=== PATIENT | female | born 1960 | race Two or more races ===

== ENCOUNTER 2021-02-19 08:34 | Emergency (ER) | payer BC, OTHER ==
[~2021-02-19] VITALS: Ht 154.9 cm; Wt 40.8 kg
[2021-02-19 09:10] VITALS: BP 187/85
[2021-02-19] MEDS ORDERED: CEPH500T PO (09:47)
== END 2021-02-19 09:54 | disposition home or self-care (01) ==
LOC: ER 08:34
DX: S01.01XA Laceration without foreign body of scalp, initial encounter (principal); E11.9 Type 2 diabetes mellitus without complications; F12.10 Cannabis abuse, uncomplicated; W19.XXXA Unspecified fall, initial encounter; Y93.89 Activity, other specified; Y92.89 Other specified places as the place of occurrence of the external cause; Y99.8 Other external cause status
CPT/HCPCS: 12002; 70450; 93005

== ENCOUNTER 2021-03-06 07:21 | Emergency (ER) | payer BC ==
[~2021-03-06] VITALS: Ht 154.9 cm; Wt 40.8 kg
[~2021-03-06 07:21] MED LIST: CEPH500T PO
[2021-03-06 07:59] VITALS: BP 137/79
== END 2021-03-06 08:12 | disposition home or self-care (01) ==
LOC: ER 07:21
DX: S01.01XD Laceration without foreign body of scalp, subsequent encounter (principal); E11.9 Type 2 diabetes mellitus without complications; F12.10 Cannabis abuse, uncomplicated; X58.XXXD Exposure to other specified factors, subsequent encounter

== ENCOUNTER 2021-04-21 15:01 | Emergency (ER) | payer BC ==
[~2021-04-21] VITALS: Ht 154.9 cm; Wt 45.8 kg
[2021-04-21 15:41] LABS: Basophils # (auto) 0.1 10 ^3/uL (0-0.2); Eosinophils # (auto) 0.1 10 ^3/uL (0-0.8); Hematocrit 32.6 % (36.0-46.0); Hemoglobin 10.6 g/dL (12.2-16.2); Mean Corpuscular Hemoglobin 30.8 pg (28.0-32.0); Mean Corpuscular Hgb Conc. 32.5 g/dL (32.0-36.0); Mean Corpuscular Volume 94.7 fL (80.0-100.0); Monocytes # (auto) 0.8 10 ^3/uL (0-1.3); Red Blood Cells 3.44 10^6/uL (4.0-5.20)
[2021-04-21 15:43] LABS: Basophils % (auto) 0.8 % (0.0-2.0); Eosinophils % (auto) 1.2 % (0.0-7.0); Lymphocytes # (auto) 2.6 10 ^3/uL (0.4-5.4); Lymphocytes % (auto) 20.6 % (10.0-50.0); Monocytes % (auto) 6.8 % (0.0-12.0); Neutrophils # (auto) 8.8 10 ^3/uL (1.6-8.6); Neutrophils % (auto) 70.6 % (37.0-80.0); Nucleated Red Blood Cells % 0.1 %; Red Cell Distribution Width 15.6 % (11.8-14.3); White Blood Cell 12.4 10^3/uL (4.4-10.8)
[2021-04-21 15:59] LABS: Albumin 2.6 g/dL (3.4-5.0); BUN/Creatinine Ratio 21.4; Calcium 8.6 mg/dL (8.5-10.1); Potassium 3.8 mmol/L (3.5-5.1)
[2021-04-21 16:02] LABS: Bilirubin, Total 0.2 mg/dL (0.2-1.0); Total Protein 7.6 g/dL (6.4-8.2)
[2021-04-21] MEDS ORDERED: CEPH-509 PO (17:10)
[2021-04-21] MEDS ORDERED: CLIN-203 PO (17:10)
[2021-04-21] MEDS ORDERED: InsuLIN REG 1unit/0.01ml Soln (100units/ml) IV ONE (17:15)
[2021-04-21] MEDS ORDERED: SODIUM CHLORIDE 0.9% 1,000 ML IV ONE (17:15)
[2021-04-21 19:12] VITALS: BP 138/95
== END 2021-04-21 19:27 | disposition home or self-care (01) ==
LOC: ER 15:01
DX: L03.115 Cellulitis of right lower limb (principal); E11.65 Type 2 diabetes mellitus with hyperglycemia; E46 Unspecified protein-calorie malnutrition
CPT/HCPCS: 36415; 80053; 82962; 85025; 93970; 96374; 99284; J1815

== ENCOUNTER 2021-06-20 16:33 | Emergency (ER) | payer BC ==
[~2021-06-20] VITALS: Ht 154.9 cm; Wt 35.8 kg
[~2021-06-20 16:33] MED LIST changes: +CEPH-509 PO; +CLIN-203 PO
[2021-06-20 16:37] VITALS: BP 171/95
[2021-06-20 18:18] LABS: Basophils # (auto) 0.2 10 ^3/uL (0-0.2); Eosinophils # (auto) 0 10 ^3/uL (0-0.8); Lymphocytes # (auto) 2.5 10 ^3/uL (0.4-5.4); Mean Corpuscular Volume 87.5 fL (80.0-100.0)
[2021-06-20 18:20] LABS: Basophils % (auto) 0.9 % (0.0-2.0); Eosinophils % (auto) 0.1 % (0.0-7.0); Hematocrit 44.8 % (36.0-46.0); Hemoglobin 15.3 g/dL (12.2-16.2); Lymphocytes % (auto) 9.9 % (10.0-50.0); Mean Corpuscular Hemoglobin 29.9 pg (28.0-32.0); Mean Corpuscular Hgb Conc. 34.2 g/dL (32.0-36.0); Monocytes # (auto) 0.7 10 ^3/uL (0-1.3); Monocytes % (auto) 2.8 % (0.0-12.0); Neutrophils % (auto) 86.3 % (37.0-80.0); Nucleated Red Blood Cells % 0.2 %; Red Blood Cells 5.12 10^6/uL (4.0-5.20); Red Cell Distribution Width 14.3 % (11.8-14.3); White Blood Cell 25.5 10^3/uL (4.4-10.8)
[2021-06-20 18:40] LABS: Albumin 2.9 g/dL (3.4-5.0); BUN/Creatinine Ratio 37.3; Calcium 9.8 mg/dL (8.5-10.1); Potassium 3.9 mmol/L (3.5-5.1)
[2021-06-20 18:43] LABS: Bilirubin, Total 0.2 mg/dL (0.2-1.0); Total Protein 8.4 g/dL (6.4-8.2)
== END 2021-06-20 18:57 | disposition left against medical advice (07) ==
LOC: ER 16:33
DX: R10.12 Left upper quadrant pain (principal); D72.829 Elevated white blood cell count, unspecified; E11.9 Type 2 diabetes mellitus without complications; E03.9 Hypothyroidism, unspecified; Z90.89 Acquired absence of other organs; Z79.2 Long term (current) use of antibiotics; Z79.899 Other long term (current) drug therapy
CPT/HCPCS: 36415; 74176; 80053; 85025; 93005

== ENCOUNTER 2021-07-04 10:16 | Inpatient (IN) | payer BC ==
[2021-07-04] VITALS (7 sets, daily range): BP systolic 135–181; BP diastolic 69–90
[~2021-07-04] VITALS: Ht 154.9 cm; Wt 47.1 kg
[2021-07-04] MEDS ORDERED: ONDANSETRON HCL 4 MG/2 ML VIAL IV ONE (11:00)
[2021-07-04] MEDS ORDERED: SODIUM CHLORIDE 0.9% 1,000 ML IVB ONE (11:00)
[2021-07-04] MEDS ORDERED: InsuLIN REG 1unit/0.01ml Soln (100units/ml) IV ONE (11:00)
[2021-07-04] MEDS ORDERED: INSULIN LANTUS (GLARGINE) 1 /0.01ml (100units/ml) SC ONE (11:15)
[2021-07-04] MEDS ORDERED: InsuLIN R (HUMAN) 100 UNITS in SODIUM CHL 0.9% 99 ML IV SCH (11:15)
[2021-07-04] MEDS ORDERED: DEXTROSE (50%) 50ML SYRG IV PRN (11:15)
[2021-07-04 11:29] LABS: Hematocrit 42.6 % (36.0-46.0); Hemoglobin 13.3 g/dL (12.2-16.2); Mean Corpuscular Hemoglobin 29.3 pg (28.0-32.0); Mean Corpuscular Hgb Conc. 31.3 g/dL (32.0-36.0); Mean Corpuscular Volume 93.4 fL (80.0-100.0); Red Blood Cells 4.56 10^6/uL (4.0-5.20); Red Cell Distribution Width 15.9 % (11.8-14.3)
[2021-07-04 11:44] LABS: Basophils % (manual) 0 (0.0-2.0); Blast Cells 0; Eosinophils % (manual) 0 (0-7); Metamyelocytes % 0; Myelocytes % 0; Promyelocytes % 0; Reactive Lymphocytes 0; White Blood Cell 35.9 10^3/uL (4.4-10.8)
[2021-07-04 11:50] LABS: Band Neutrophils % (manual) 77; Lymphocytes % (manual) 3 (10.0-50.0); Monocytes % (manual) 6 (0-12)
[2021-07-04 11:52] LABS: Albumin 2.3 g/dL (3.4-5.0); Anion Gap 33 (5-15); Blood Alcohol < 3.0 mg/dL (0-5); Blood Urea Nitrogen 54 mg/dL (7-18); Calcium 9.4 mg/dL (8.5-10.1); Carbon Dioxide 11 mmol/L (21-32); Chloride 87 mmol/L (98-107); Magnesium 2.9 mg/dL (1.6-2.6); Potassium 4.1 mmol/L (3.5-5.1); Sodium 131 mmol/L (136-145)
[2021-07-04 11:55] LABS: Alanine Aminotransferase 21 U/L (13-56); Bilirubin, Total 0.8 mg/dL (0.2-1.0); GFR African American 43 mL/min; GFR Non-African American 35 mL/min
[2021-07-04 12:01] LABS: Alkaline Phosphatase 176 U/L (45-117)
[2021-07-04 12:05] LABS: Aspartate Aminotransferase 23 U/L (15-37)
[2021-07-04 12:13] LABS: Glucose 554 mg/dL (74-106)
[2021-07-04] MEDS ORDERED: cefTRIAXone 1GM/50ML D5W 50 ML IV ONE (12:15)
[2021-07-04] MEDS ORDERED: SODIUM CHLORIDE 0.9% 1,000 ML IV ONE (12:45)
[2021-07-04 13:01] LABS: Lactic Acid w/Reflex 8.7 mmol/L (0.4-2.0)
[2021-07-04] MEDS ORDERED: AZITHROMYCIN 500MG/ 250ML 250 ML IV ONE (13:15)
[2021-07-04] MEDS ORDERED: ONDANSETRON HCL 4 MG/2 ML VIAL IV PRN (13:15)
[2021-07-04] MEDS: ACCU-CHEK COMFORT CURVE STRIP VI SCH ×8 (13:28→22:33)
[2021-07-04] MEDS ORDERED: NICOTINE 7MG/24HR TOPICAL PATCH TD ONE (13:30)
[2021-07-04 17:52] LABS: Urine Bacteria NONE SEEN /hpf (None Seen); Urine Blood Negative /uL (Negative); Urine Specific Gravity 1.012 (1.001-1.035); Urine WBC 23 /hpf (0 - 5)
[2021-07-04 17:55] LABS: Alcohol, Urine < 3.0 mg/dL (0-10); Amphetamine Screen, Urine POSITIVE (NEGATIVE); Barbiturate Scree,Urine NEGATIVE (NEGATIVE); Benzodiazephine Screen, Urine NEGATIVE (NEGATIVE); Cannabinoid Screen, Urine POSITIVE (NEGATIVE); Cocaine Screen, Urine NEGATIVE (NEGATIVE); Opiate Scree,Urine NEGATIVE (NEGATIVE); Phencyclidine Screen, Urine NEGATIVE (NEGATIVE)
[2021-07-04] MEDS: hydrALAZINE HCL 20 MG/ML VL IV PRN ×2 (18:54→21:00)
[2021-07-05] VITALS (8 sets, daily range): BP systolic 122–160; BP diastolic 57–79
[2021-07-05] MEDS: ACCU-CHEK COMFORT CURVE STRIP VI SCH ×9 (00:06→21:34)
[2021-07-05 04:10] LABS: Red Blood Cells 4.52 10^6/uL (4.0-5.20)
[2021-07-05 04:14] LABS: Hematocrit 40.1 % (36.0-46.0); Hemoglobin 13.4 g/dL (12.2-16.2); Mean Corpuscular Hemoglobin 29.7 pg (28.0-32.0); Mean Corpuscular Hgb Conc. 33.4 g/dL (32.0-36.0); Mean Corpuscular Volume 88.7 fL (80.0-100.0); White Blood Cell 29.8 10^3/uL (4.4-10.8)
[2021-07-05 04:16] LABS: Albumin 1.9 g/dL (3.4-5.0); BUN/Creatinine Ratio 62.5; Calcium 8.5 mg/dL (8.5-10.1); Potassium 3.2 mmol/L (3.5-5.1)
[2021-07-05 04:19] LABS: Bilirubin, Total 0.3 mg/dL (0.2-1.0); Total Protein 6.9 g/dL (6.4-8.2)
[2021-07-05 04:28] LABS: Basophils % (manual) 0 (0.0-2.0); Blast Cells 0; Eosinophils % (manual) 0 (0-7); Metamyelocytes % 0; Promyelocytes % 0; Reactive Lymphocytes 0
[2021-07-05 05:04] LABS: Band Neutrophils % (manual) 44; Lymphocytes % (manual) 10 (10.0-50.0); Monocytes % (manual) 2 (0-12); Myelocytes % 1
[2021-07-05] MEDS: cefTRIAXone 1GM/50ML D5W 50 ML IV SCH (09:37)
[2021-07-05] MEDS ORDERED: INSULIN LANTUS (GLARGINE) 1 /0.01ml (100units/ml) SC SCH (10:00)
[2021-07-05] MEDS: AZITHROMYCIN 500MG/ 250ML 250 ML IV SCH (10:51)
[2021-07-05] MEDS ORDERED: DEXTROSE (50%) 50ML SYRG IV PRN (12:15)
[2021-07-05] MEDS: NICOTINE 7MG/24HR TOPICAL PATCH TD SCH (12:38)
[2021-07-05] MEDS ORDERED: POTASSIUM EFFERVESENT TAB 25 MEQ PO ONE (15:15)
[2021-07-05] MEDS: InsuLIN REG 1unit/0.01ml Soln (100units/ml) SC SCH ×2 (18:08→21:33)
[2021-07-06 05:00] VITALS: BP 154/86
[2021-07-06] MEDS: ACCU-CHEK COMFORT CURVE STRIP VI SCH ×4 (05:26→20:56)
[2021-07-06] MEDS: InsuLIN REG 1unit/0.01ml Soln (100units/ml) SC SCH ×4 (05:36→20:56)
[2021-07-06 05:57] LABS: Hematocrit 32.7 % (36.0-46.0); Hemoglobin 11.1 g/dL (12.2-16.2); Mean Corpuscular Hemoglobin 29.7 pg (28.0-32.0); Mean Corpuscular Volume 87.4 fL (80.0-100.0); Red Blood Cells 3.75 10^6/uL (4.0-5.20); Red Cell Distribution Width 14.8 % (11.8-14.3); White Blood Cell 25.5 10^3/uL (4.4-10.8)
[2021-07-06 06:00] LABS: Basophils % (manual) 0 (0.0-2.0); Blast Cells 0; Eosinophils % (manual) 0 (0-7); Myelocytes % 0; Promyelocytes % 0; Reactive Lymphocytes 0
[2021-07-06 06:15] LABS: Albumin 1.6 g/dL (3.4-5.0); BUN/Creatinine Ratio 44.4; Calcium 8.3 mg/dL (8.5-10.1)
[2021-07-06 06:18] LABS: Bilirubin, Total 0.3 mg/dL (0.2-1.0); Total Protein 6.2 g/dL (6.4-8.2)
[2021-07-06 06:27] LABS: Potassium 2.8 mmol/L (3.5-5.1)
[2021-07-06] MEDS ORDERED: POTASSIUM CHL 20 Meq TABLET PO ONE (06:45)
[2021-07-06 07:43] LABS: Band Neutrophils % (manual) 14; Lymphocytes % (manual) 8 (10.0-50.0); Metamyelocytes % 1; Monocytes % (manual) 2 (0-12)
[2021-07-06 09:00] VITALS: BP 156/87
[2021-07-06] MEDS: cefTRIAXone 1GM/50ML D5W 50 ML IV SCH (09:07)
[2021-07-06] MEDS: AZITHROMYCIN 500MG/ 250ML 250 ML IV SCH (11:19)
[2021-07-06] MEDS: NICOTINE 7MG/24HR TOPICAL PATCH TD SCH (11:37)
[2021-07-06 13:00] VITALS: BP 148/85
[2021-07-06 17:00] VITALS: BP 144/77
[2021-07-06 22:00] VITALS: BP 157/83
[2021-07-07 05:00] VITALS: BP 158/84
[2021-07-07] MEDS: InsuLIN REG 1unit/0.01ml Soln (100units/ml) SC SCH ×4 (06:03→23:03)
[2021-07-07] MEDS: ACCU-CHEK COMFORT CURVE STRIP VI SCH ×4 (06:03→23:02)
[2021-07-07 06:31] LABS: Potassium 3.5 mmol/L (3.5-5.1)
[2021-07-07 06:40] VITALS: BP 152/81
[2021-07-07 06:42] LABS: Albumin 1.5 g/dL (3.4-5.0); BUN/Creatinine Ratio 42.9; Bilirubin, Total 0.3 mg/dL (0.2-1.0); Calcium 8.2 mg/dL (8.5-10.1); Total Protein 6.2 g/dL (6.4-8.2)
[2021-07-07 07:19] LABS: Basophils # (auto) 0 10 ^3/uL (0-0.2); Eosinophils # (auto) 0 10 ^3/uL (0-0.8); Eosinophils % (auto) 0.1 % (0.0-7.0); Hemoglobin 11.2 g/dL (12.2-16.2); Mean Corpuscular Volume 87.6 fL (80.0-100.0); Monocytes # (auto) 0.6 10 ^3/uL (0-1.3)
[2021-07-07 07:23] LABS: Basophils % (auto) 0.2 % (0.0-2.0); Hematocrit 33.6 % (36.0-46.0); Lymphocytes # (auto) 1.2 10 ^3/uL (0.4-5.4); Lymphocytes % (auto) 6.9 % (10.0-50.0); Mean Corpuscular Hemoglobin 29.3 pg (28.0-32.0); Mean Corpuscular Hgb Conc. 33.5 g/dL (32.0-36.0); Monocytes % (auto) 3.6 % (0.0-12.0); Neutrophils # (auto) 15.7 10 ^3/uL (1.6-8.6); Neutrophils % (auto) 89.2 % (37.0-80.0); Red Blood Cells 3.83 10^6/uL (4.0-5.20); Red Cell Distribution Width 15.1 % (11.8-14.3); White Blood Cell 17.6 10^3/uL (4.4-10.8)
[2021-07-07 08:00] VITALS: BP 149/79
[2021-07-07] MEDS: cefTRIAXone 1GM/50ML D5W 50 ML IV SCH (08:30)
[2021-07-07] MEDS: NICOTINE 7MG/24HR TOPICAL PATCH TD SCH (09:25)
[2021-07-07] MEDS: AZITHROMYCIN 500MG/ 250ML 250 ML IV SCH (09:25)
[2021-07-07 12:00] VITALS: BP 145/78
[2021-07-07 16:00] VITALS: BP 153/74
[2021-07-07 22:00] VITALS: BP 146/72
[2021-07-07] MEDS: MORPHINE SULFATE INJECTION 2 MG/ML SYRG IV PRN (23:02)
[2021-07-08 05:00] VITALS: BP 159/82
[2021-07-08 05:32] VITALS: BP 149/82
[2021-07-08 06:21] LABS: Basophils # (auto) 0.1 10 ^3/uL (0-0.2); Basophils % (auto) 0.4 % (0.0-2.0); Eosinophils # (auto) 0 10 ^3/uL (0-0.8); Eosinophils % (auto) 0.1 % (0.0-7.0); Lymphocytes # (auto) 1.5 10 ^3/uL (0.4-5.4); Mean Corpuscular Volume 87.4 fL (80.0-100.0); Monocytes # (auto) 1.3 10 ^3/uL (0-1.3); Red Blood Cells 3.75 10^6/uL (4.0-5.20)
[2021-07-08 06:23] LABS: Hematocrit 32.7 % (36.0-46.0); Hemoglobin 11.3 g/dL (12.2-16.2); Lymphocytes % (auto) 7.5 % (10.0-50.0); Mean Corpuscular Hemoglobin 30.2 pg (28.0-32.0); Mean Corpuscular Hgb Conc. 34.5 g/dL (32.0-36.0); Monocytes % (auto) 6.7 % (0.0-12.0); Neutrophils # (auto) 16.7 10 ^3/uL (1.6-8.6); Neutrophils % (auto) 85.3 % (37.0-80.0); Red Cell Distribution Width 15.1 % (11.8-14.3); White Blood Cell 19.6 10^3/uL (4.4-10.8)
[2021-07-08 06:38] LABS: Potassium 3.2 mmol/L (3.5-5.1)
[2021-07-08 06:44] LABS: Albumin 1.6 g/dL (3.4-5.0); BUN/Creatinine Ratio 34.8; Bilirubin, Total 0.4 mg/dL (0.2-1.0); Total Protein 6.2 g/dL (6.4-8.2)
[2021-07-08] MEDS: ACCU-CHEK COMFORT CURVE STRIP VI SCH ×4 (06:53→22:15)
[2021-07-08] MEDS: InsuLIN REG 1unit/0.01ml Soln (100units/ml) SC SCH ×4 (06:57→22:18)
[2021-07-08 09:00] VITALS: BP 138/79
[2021-07-08] MEDS: NICOTINE 7MG/24HR TOPICAL PATCH TD SCH (09:00)
[2021-07-08] MEDS: cefTRIAXone 1GM/50ML D5W 50 ML IV SCH (09:00)
[2021-07-08] MEDS: AZITHROMYCIN 500MG/ 250ML 250 ML IV SCH (10:35)
[2021-07-08 13:00] VITALS: BP 134/89
[2021-07-08] MEDS ORDERED: DOXYCYCLINE 100MG/250ML 250 ML IV SCH (13:30)
[2021-07-08] MEDS ORDERED: DOXYCYCLINE 100MG/250ML 250 ML IV ONE (13:30)
[2021-07-08 17:00] VITALS: BP 139/84
[2021-07-08] MEDS ORDERED: DOXYCYCLINE 100 MG TAB/CAP PO SCH (22:00)
[2021-07-08 22:17] VITALS: BP 157/86
[2021-07-09] MEDS: DOXYCYCLINE 100MG/250ML 250 ML IV SCH ×2 (00:57→12:21)
[2021-07-09 05:00] VITALS: BP 153/81
[2021-07-09] MEDS: ACCU-CHEK COMFORT CURVE STRIP VI SCH ×4 (06:37→21:51)
[2021-07-09] MEDS: InsuLIN REG 1unit/0.01ml Soln (100units/ml) SC SCH ×4 (06:40→22:03)
[2021-07-09] MEDS: cefTRIAXone 1GM/50ML D5W 50 ML IV SCH (08:26)
[2021-07-09 09:00] VITALS: BP 161/87
[2021-07-09] MEDS: NICOTINE 7MG/24HR TOPICAL PATCH TD SCH (09:25)
[2021-07-09 13:00] VITALS: BP 152/80
[2021-07-09 17:01] VITALS: BP 148/86
[2021-07-09 21:43] VITALS: BP 154/85
[2021-07-09] MEDS ORDERED: TEMAZEPAM 15 MG CAP PO ONE (22:45)
[2021-07-10] MEDS: DOXYCYCLINE 100MG/250ML 250 ML IV SCH ×2 (01:26→14:10)
[2021-07-10 05:17] VITALS: BP 133/81
[2021-07-10 05:49] LABS: Basophils # (auto) 0 10 ^3/uL (0-0.2); Basophils % (auto) 0.2 % (0.0-2.0); Monocytes # (auto) 1.9 10 ^3/uL (0-1.3)
[2021-07-10 05:54] LABS: Eosinophils # (auto) 0 10 ^3/uL (0-0.8); Eosinophils % (auto) 0.2 % (0.0-7.0); Hematocrit 32.7 % (36.0-46.0); Hemoglobin 11.3 g/dL (12.2-16.2); Lymphocytes # (auto) 2.2 10 ^3/uL (0.4-5.4); Mean Corpuscular Hgb Conc. 34.6 g/dL (32.0-36.0); Mean Corpuscular Volume 86.8 fL (80.0-100.0); Monocytes % (auto) 9.8 % (0.0-12.0); Neutrophils # (auto) 15.6 10 ^3/uL (1.6-8.6); Neutrophils % (auto) 78.8 % (37.0-80.0); Red Blood Cells 3.77 10^6/uL (4.0-5.20); Red Cell Distribution Width 15.2 % (11.8-14.3); White Blood Cell 19.8 10^3/uL (4.4-10.8)
[2021-07-10] MEDS: ACCU-CHEK COMFORT CURVE STRIP VI SCH ×4 (06:01→23:36)
[2021-07-10] MEDS: InsuLIN REG 1unit/0.01ml Soln (100units/ml) SC SCH ×4 (06:06→23:42)
[2021-07-10 08:14] VITALS: BP 133/81
[2021-07-10 09:00] VITALS: BP 141/74
[2021-07-10] MEDS: MORPHINE SULFATE INJECTION 2 MG/ML SYRG IV PRN ×2 (09:53→18:19)
[2021-07-10] MEDS: NICOTINE 7MG/24HR TOPICAL PATCH TD SCH (09:54)
[2021-07-10] MEDS: cefTRIAXone 1GM/50ML D5W 50 ML IV SCH (09:54)
[2021-07-10] MEDS ORDERED: DEXTROSE (50%) 50ML SYRG IV PRN (11:00)
[2021-07-10] MEDS: FLUCONAZOLE 200MG/100ML 100 ML IV SCH ×2 (11:57→13:30)
[2021-07-10 13:00] VITALS: BP 124/79
[2021-07-10 17:00] VITALS: BP 155/74
[2021-07-10 22:00] VITALS: BP 155/82
[2021-07-11] MEDS: DOXYCYCLINE 100MG/250ML 250 ML IV SCH ×2 (01:36→14:18)
[2021-07-11 05:00] VITALS: BP 137/76
[2021-07-11] MEDS: ACCU-CHEK COMFORT CURVE STRIP VI SCH ×4 (05:38→23:38)
[2021-07-11] MEDS: MORPHINE SULFATE INJECTION 2 MG/ML SYRG IV PRN ×3 (05:43→19:49)
[2021-07-11] MEDS: InsuLIN REG 1unit/0.01ml Soln (100units/ml) SC SCH ×4 (05:53→23:38)
[2021-07-11] MEDS: ALBUTEROL SULF 2.5 MG/0.5ML(0.5%) NEB SOLN NEB PRN (08:46)
[2021-07-11 09:00] VITALS: BP 85/42
[2021-07-11] MEDS: cefTRIAXone 1GM/50ML D5W 50 ML IV SCH (10:03)
[2021-07-11] MEDS: FLUCONAZOLE 200MG/100ML 100 ML IV SCH ×2 (10:03→14:16)
[2021-07-11] MEDS: NICOTINE 7MG/24HR TOPICAL PATCH TD SCH (10:04)
[2021-07-11 13:00] VITALS: BP 142/74
[2021-07-11 17:00] VITALS: BP 151/79
[2021-07-11 22:00] VITALS: BP 141/72
[2021-07-12] MEDS: DOXYCYCLINE 100MG/250ML 250 ML IV SCH ×2 (00:53→14:36)
[2021-07-12] MEDS: MORPHINE SULFATE INJECTION 2 MG/ML SYRG IV PRN ×4 (00:54→23:23)
[2021-07-12 05:00] VITALS: BP 147/73
[2021-07-12] MEDS: InsuLIN REG 1unit/0.01ml Soln (100units/ml) SC SCH ×3 (06:00→18:24)
[2021-07-12] MEDS: ACCU-CHEK COMFORT CURVE STRIP VI SCH ×3 (06:29→18:25)
[2021-07-12 09:10] VITALS: BP 137/71
[2021-07-12] MEDS: cefTRIAXone 1GM/50ML D5W 50 ML IV SCH (09:22)
[2021-07-12] MEDS: NICOTINE 7MG/24HR TOPICAL PATCH TD SCH (09:22)
[2021-07-12] MEDS: FLUCONAZOLE 200MG/100ML 100 ML IV SCH ×2 (10:58→12:00)
[2021-07-12 13:00] VITALS: BP 148/73
[2021-07-12] MEDS: ALBUTEROL SULF 2.5 MG/0.5ML(0.5%) NEB SOLN NEB PRN (15:12)
[2021-07-12 17:00] VITALS: BP 148/79
[2021-07-12 22:00] VITALS: BP 133/80
[2021-07-13] VITALS (8 sets, daily range): BP systolic 140–159; BP diastolic 71–95
[2021-07-13] MEDS: InsuLIN REG 1unit/0.01ml Soln (100units/ml) SC SCH ×4 (00:30→18:05)
[2021-07-13] MEDS: DOXYCYCLINE 100MG/250ML 250 ML IV SCH (01:49)
[2021-07-13] MEDS: ACCU-CHEK COMFORT CURVE STRIP VI SCH ×4 (06:15→18:15)
[2021-07-13] MEDS: cefTRIAXone 1GM/50ML D5W 50 ML IV SCH (09:23)
[2021-07-13] MEDS: NICOTINE 7MG/24HR TOPICAL PATCH TD SCH (09:24)
[2021-07-13] MEDS: LINEZOLID 600MG/300ML 300 ML IV SCH ×2 (10:00→22:11)
[2021-07-13] MEDS: FLUCONAZOLE 200MG/100ML 100 ML IV SCH ×2 (11:25→12:00)
[2021-07-13] MEDS: ALBUTEROL SULF 2.5 MG/0.5ML(0.5%) NEB SOLN NEB PRN ×2 (15:33→18:13)
[2021-07-13] MEDS: MORPHINE SULFATE INJECTION 2 MG/ML SYRG IV PRN (18:17)
[2021-07-14] VITALS (7 sets, daily range): BP systolic 116–163; BP diastolic 67–89
[2021-07-14] MEDS: MORPHINE SULFATE INJECTION 2 MG/ML SYRG IV PRN ×4 (01:00→22:44)
[2021-07-14 05:21] LABS: Basophils # (auto) 0.1 10 ^3/uL (0-0.2); Eosinophils # (auto) 0 10 ^3/uL (0-0.8); Eosinophils % (auto) 0.1 % (0.0-7.0); Hemoglobin 9.5 g/dL (12.2-16.2)
[2021-07-14 05:24] LABS: Basophils % (auto) 0.2 % (0.0-2.0); Hematocrit 27.3 % (36.0-46.0); Lymphocytes # (auto) 2.2 10 ^3/uL (0.4-5.4); Lymphocytes % (auto) 9.5 % (10.0-50.0); Mean Corpuscular Hemoglobin 29.7 pg (28.0-32.0); Mean Corpuscular Hgb Conc. 34.9 g/dL (32.0-36.0); Mean Corpuscular Volume 85.1 fL (80.0-100.0); Monocytes % (auto) 4.4 % (0.0-12.0); Neutrophils # (auto) 19.7 10 ^3/uL (1.6-8.6); Neutrophils % (auto) 85.8 % (37.0-80.0); Red Blood Cells 3.21 10^6/uL (4.0-5.20); Red Cell Distribution Width 14.9 % (11.8-14.3)
[2021-07-14 05:36] LABS: Calcium 8.5 mg/dL (8.5-10.1); Potassium 3.6 mmol/L (3.5-5.1)
[2021-07-14] MEDS: InsuLIN REG 1unit/0.01ml Soln (100units/ml) SC SCH ×4 (06:00→17:35)
[2021-07-14] MEDS: ACCU-CHEK COMFORT CURVE STRIP VI SCH ×4 (06:02→18:12)
[2021-07-14] MEDS ORDERED: IOHEXOL 300 MG/ML 100ML BOTTLE IJ ONE (08:22)
[2021-07-14] MEDS ORDERED: OMNIPAQUE ORAL SOLN 500ml 12mg/ml PO ONE (08:22)
[2021-07-14] MEDS: LINEZOLID 600MG/300ML 300 ML IV SCH (09:51)
[2021-07-14] MEDS: FLUCONAZOLE 200MG/100ML 100 ML IV SCH ×2 (09:51→12:00)
[2021-07-14] MEDS: NICOTINE 7MG/24HR TOPICAL PATCH TD SCH (10:04)
[2021-07-14 14:07] LABS: Hepatitis A Ab IgM Negative
[2021-07-14 14:08] LABS: Hepatitis B Core IgM Negative
[2021-07-14 14:10] LABS: Hepatitis C Antibody Reactive (Negative)
[2021-07-14] MEDS: ALBUTEROL SULF 2.5 MG/0.5ML(0.5%) NEB SOLN NEB PRN (15:12)
[2021-07-14] MEDS: AMPICILLIN SOD 2GM INJ 2 GM in SODIUM CHL 0.9% 100 ML IV SCH ×2 (17:30→22:18)
[2021-07-15] MEDS: ACCU-CHEK COMFORT CURVE STRIP VI SCH ×5 (00:22→23:49)
[2021-07-15] MEDS: InsuLIN REG 1unit/0.01ml Soln (100units/ml) SC SCH ×5 (00:24→23:52)
[2021-07-15] MEDS: AMPICILLIN SOD 2GM INJ 2 GM in SODIUM CHL 0.9% 100 ML IV SCH ×4 (04:22→21:26)
[2021-07-15] MEDS: MORPHINE SULFATE INJECTION 2 MG/ML SYRG IV PRN ×2 (04:38→13:29)
[2021-07-15 05:00] VITALS: BP 149/78
[2021-07-15 08:34] VITALS: BP 134/69
[2021-07-15] MEDS: FLUCONAZOLE 200MG/100ML 100 ML IV SCH ×2 (11:00→13:27)
[2021-07-15] MEDS: NICOTINE 7MG/24HR TOPICAL PATCH TD SCH (12:36)
[2021-07-15 12:42] VITALS: BP 143/77
[2021-07-15 16:43] VITALS: BP 160/82
[2021-07-15] MEDS ORDERED: INSU1INJ19 SC (19:19)
[2021-07-15] MEDS ORDERED: ONDA-144 PO (19:19)
[2021-07-15] MEDS ORDERED: [UNRECOGNIZED DRUG - CODE] PO (19:19)
[2021-07-15] MEDS ORDERED: NYS5LQ MT (19:19)
[2021-07-15] MEDS ORDERED: METF-370 PO (19:23)
[2021-07-15] MEDS: hydrALAZINE HCL 20 MG/ML VL IV PRN (21:27)
[2021-07-15 22:00] VITALS: BP 163/80
[2021-07-15] MEDS: HYDROcodone-ACET 7.5/325MG TAB PO PRN (22:45)
[2021-07-16] MEDS: AMPICILLIN SOD 2GM INJ 2 GM in SODIUM CHL 0.9% 100 ML IV SCH ×2 (03:36→10:00)
[2021-07-16 05:00] VITALS: BP 150/72
[2021-07-16] MEDS: ACCU-CHEK COMFORT CURVE STRIP VI SCH ×4 (05:28→23:03)
[2021-07-16] MEDS: InsuLIN REG 1unit/0.01ml Soln (100units/ml) SC SCH ×4 (05:32→23:03)
[2021-07-16 07:18] VITALS: BP 150/72
[2021-07-16 08:51] VITALS: BP 149/81
[2021-07-16 09:45] LABS: Mean Corpuscular Hemoglobin 29.4 pg (28.0-32.0)
[2021-07-16 09:47] LABS: Hematocrit 29.4 % (36.0-46.0); Hemoglobin 9.9 g/dL (12.2-16.2); Mean Corpuscular Hgb Conc. 33.6 g/dL (32.0-36.0); Mean Corpuscular Volume 87.3 fL (80.0-100.0); Red Blood Cells 3.37 10^6/uL (4.0-5.20); Red Cell Distribution Width 15.5 % (11.8-14.3); White Blood Cell 19.9 10^3/uL (4.4-10.8)
[2021-07-16 09:48] LABS: Albumin 1.4 g/dL (3.4-5.0); BUN/Creatinine Ratio 14.7; Calcium 8.4 mg/dL (8.5-10.1); Potassium 4.1 mmol/L (3.5-5.1)
[2021-07-16 09:51] LABS: Basophils % (manual) 0 (0.0-2.0); Blast Cells 0; Eosinophils % (manual) 0 (0-7); Metamyelocytes % 0; Myelocytes % 0; Promyelocytes % 0; Reactive Lymphocytes 0
[2021-07-16 09:52] LABS: Bilirubin, Total 0.2 mg/dL (0.2-1.0); Total Protein 7.1 g/dL (6.4-8.2)
[2021-07-16] MEDS: NICOTINE 7MG/24HR TOPICAL PATCH TD SCH (10:00)
[2021-07-16 10:54] LABS: INR 1.05 (0.9-1.15); Partial Thromboplastin Time 27.3 sec (23.6-33.0)
[2021-07-16 11:04] LABS: Band Neutrophils % (manual) 1; Lymphocytes % (manual) 15 (10.0-50.0); Monocytes % (manual) 3 (0-12)
[2021-07-16 13:24] VITALS: BP 151/78
[2021-07-16] MEDS: ALBUTEROL SULF 2.5 MG/0.5ML(0.5%) NEB SOLN NEB PRN (15:19)
[2021-07-16] MEDS: AMPICILLIN & SULBACTAM SODIUM 3 GM in SODIUM CHL 0.9% 100 ML IV SCH ×2 (15:44→23:04)
[2021-07-16 17:12] VITALS: BP 150/74
[2021-07-16 22:00] VITALS: BP 142/67
[2021-07-16] MEDS: HYDROcodone-ACET 7.5/325MG TAB PO PRN (23:04)
[2021-07-17 05:00] VITALS: BP 140/67
[2021-07-17] MEDS: InsuLIN REG 1unit/0.01ml Soln (100units/ml) SC SCH ×4 (05:14→23:01)
[2021-07-17] MEDS: ACCU-CHEK COMFORT CURVE STRIP VI SCH ×4 (05:14→23:00)
[2021-07-17 08:00] VITALS: BP 167/88
[2021-07-17 09:00] VITALS: BP 167/88
[2021-07-17] MEDS: NICOTINE 7MG/24HR TOPICAL PATCH TD SCH (09:13)
[2021-07-17] MEDS: HYDROcodone-ACET 7.5/325MG TAB PO PRN ×2 (09:13→23:00)
[2021-07-17] MEDS: AMPICILLIN & SULBACTAM SODIUM 3 GM in SODIUM CHL 0.9% 100 ML IV SCH ×3 (09:47→23:00)
[2021-07-17 13:00] VITALS: BP 142/76
[2021-07-17] MEDS ORDERED: KETOROLAC TROMETH 30 MG/ML 1ML VIAL IV PRN (15:45)
[2021-07-17 17:00] VITALS: BP 155/81
[2021-07-17 22:00] VITALS: BP 142/90
[2021-07-18] MEDS: KETOROLAC TROMETH 30 MG/ML 1ML VIAL IV PRN ×2 (01:45→13:32)
[2021-07-18 05:00] VITALS: BP 148/78
[2021-07-18] MEDS: InsuLIN REG 1unit/0.01ml Soln (100units/ml) SC SCH ×3 (05:29→17:38)
[2021-07-18] MEDS: ACCU-CHEK COMFORT CURVE STRIP VI SCH ×3 (05:29→17:38)
[2021-07-18] MEDS: AMPICILLIN & SULBACTAM SODIUM 3 GM in SODIUM CHL 0.9% 100 ML IV SCH ×2 (08:38→16:52)
[2021-07-18 09:00] VITALS: BP 156/78
[2021-07-18] MEDS: NICOTINE 7MG/24HR TOPICAL PATCH TD SCH (09:31)
[2021-07-18 10:47] LABS: Eosinophils # (auto) 0 10 ^3/uL (0-0.8); Eosinophils % (auto) 0.2 % (0.0-7.0); Hemoglobin 9.8 g/dL (12.2-16.2); Lymphocytes # (auto) 1.2 10 ^3/uL (0.4-5.4)
[2021-07-18 10:49] LABS: Basophils # (auto) 0.2 10 ^3/uL (0-0.2); Basophils % (auto) 0.9 % (0.0-2.0); Hematocrit 29.2 % (36.0-46.0); Lymphocytes % (auto) 6.3 % (10.0-50.0); Mean Corpuscular Hemoglobin 29.2 pg (28.0-32.0); Mean Corpuscular Hgb Conc. 33.7 g/dL (32.0-36.0); Mean Corpuscular Volume 86.7 fL (80.0-100.0); Monocytes # (auto) 0.5 10 ^3/uL (0-1.3); Monocytes % (auto) 2.7 % (0.0-12.0); Neutrophils # (auto) 16.6 10 ^3/uL (1.6-8.6); Neutrophils % (auto) 89.9 % (37.0-80.0); Red Blood Cells 3.36 10^6/uL (4.0-5.20); Red Cell Distribution Width 15.1 % (11.8-14.3); White Blood Cell 18.5 10^3/uL (4.4-10.8)
[2021-07-18 11:06] LABS: Albumin 1.4 g/dL (3.4-5.0); Calcium 8.2 mg/dL (8.5-10.1); Potassium 4.2 mmol/L (3.5-5.1)
[2021-07-18 11:14] LABS: BUN/Creatinine Ratio 21.4; Bilirubin, Total 0.4 mg/dL (0.2-1.0); Total Protein 7.1 g/dL (6.4-8.2)
[2021-07-18 13:00] VITALS: BP 147/82
[2021-07-18 17:00] VITALS: BP 143/80
[2021-07-18 22:00] VITALS: BP 155/67
[2021-07-19] MEDS: AMPICILLIN & SULBACTAM SODIUM 3 GM in SODIUM CHL 0.9% 100 ML IV SCH ×3 (00:06→17:13)
[2021-07-19] MEDS: ACCU-CHEK COMFORT CURVE STRIP VI SCH ×4 (00:06→18:06)
[2021-07-19] MEDS: InsuLIN REG 1unit/0.01ml Soln (100units/ml) SC SCH ×4 (00:17→18:07)
[2021-07-19] MEDS: HYDROcodone-ACET 7.5/325MG TAB PO PRN ×3 (00:17→21:15)
[2021-07-19] MEDS: KETOROLAC TROMETH 30 MG/ML 1ML VIAL IV PRN ×2 (04:24→15:23)
[2021-07-19 05:00] VITALS: BP 156/74
[2021-07-19 09:00] VITALS: BP_SYST 154; BP_SYST 155; BP_DIAS 80; BP_DIAS 82
[2021-07-19] MEDS: NICOTINE 7MG/24HR TOPICAL PATCH TD SCH (09:48)
[2021-07-19 13:00] VITALS: BP 157/75
[2021-07-19 17:00] VITALS: BP 173/72
[2021-07-19] MEDS: hydrALAZINE HCL 20 MG/ML VL IV PRN (17:14)
[2021-07-19 22:00] VITALS: BP 152/63
[2021-07-20] MEDS: AMPICILLIN & SULBACTAM SODIUM 3 GM in SODIUM CHL 0.9% 100 ML IV SCH ×4 (00:20→23:38)
[2021-07-20] MEDS: ACCU-CHEK COMFORT CURVE STRIP VI SCH ×5 (00:20→23:54)
[2021-07-20] MEDS: InsuLIN REG 1unit/0.01ml Soln (100units/ml) SC SCH ×5 (00:44→23:46)
[2021-07-20 05:00] VITALS: BP 140/64
[2021-07-20] MEDS: HYDROcodone-ACET 7.5/325MG TAB PO PRN ×2 (05:20→20:12)
[2021-07-20 09:00] VITALS: BP 183/90
[2021-07-20] MEDS: NICOTINE 7MG/24HR TOPICAL PATCH TD SCH (09:33)
[2021-07-20] MEDS: cloNIDine HCL 0.1 MG TAB PO PRN (09:57)
[2021-07-20 13:00] VITALS: BP_SYST 136; BP_SYST 143; BP_DIAS 69; BP_DIAS 72
[2021-07-20 17:00] VITALS: BP 159/74
[2021-07-20 22:00] VITALS: BP 150/77
[2021-07-20] MEDS: KETOROLAC TROMETH 30 MG/ML 1ML VIAL IV PRN (23:52)
[2021-07-21] MEDS: HYDROcodone-ACET 7.5/325MG TAB PO PRN ×2 (04:56→17:25)
[2021-07-21 05:00] VITALS: BP 143/77
[2021-07-21] MEDS: ACCU-CHEK COMFORT CURVE STRIP VI SCH ×4 (05:46→23:36)
[2021-07-21] MEDS: InsuLIN REG 1unit/0.01ml Soln (100units/ml) SC SCH ×4 (05:48→23:36)
[2021-07-21] MEDS: AMPICILLIN & SULBACTAM SODIUM 3 GM in SODIUM CHL 0.9% 100 ML IV SCH ×2 (08:00→16:00)
[2021-07-21 09:00] VITALS: BP 140/81
[2021-07-21] MEDS: NICOTINE 7MG/24HR TOPICAL PATCH TD SCH (10:00)
[2021-07-21] MEDS: KETOROLAC TROMETH 30 MG/ML 1ML VIAL IV PRN ×2 (12:00→23:26)
[2021-07-21 12:30] VITALS: BP 151/80
[2021-07-21 14:27] LABS: Basophils # (auto) 0.2 10 ^3/uL (0-0.2); Lymphocytes # (auto) 2.4 10 ^3/uL (0.4-5.4); Mean Corpuscular Hemoglobin 28.8 pg (28.0-32.0); Monocytes # (auto) 0.7 10 ^3/uL (0-1.3); Red Cell Distribution Width 15.1 % (11.8-14.3)
[2021-07-21 14:29] LABS: Basophils % (auto) 1.2 % (0.0-2.0); Eosinophils # (auto) 0 10 ^3/uL (0-0.8); Eosinophils % (auto) 0.4 % (0.0-7.0); Hematocrit 26.2 % (36.0-46.0); Hemoglobin 8.8 g/dL (12.2-16.2); Lymphocytes % (auto) 19.6 % (10.0-50.0); Mean Corpuscular Hgb Conc. 33.7 g/dL (32.0-36.0); Mean Corpuscular Volume 85.4 fL (80.0-100.0); Neutrophils # (auto) 8.9 10 ^3/uL (1.6-8.6); Neutrophils % (auto) 72.8 % (37.0-80.0); Nucleated Red Blood Cells % 0.1 %; Red Blood Cells 3.07 10^6/uL (4.0-5.20); White Blood Cell 12.3 10^3/uL (4.4-10.8)
[2021-07-21] MEDS: ALBUTEROL SULF 2.5 MG/0.5ML(0.5%) NEB SOLN NEB PRN (15:11)
[2021-07-21 17:10] VITALS: BP 147/75
[2021-07-21 22:01] VITALS: BP 162/81
[2021-07-22] MEDS: AMPICILLIN & SULBACTAM SODIUM 3 GM in SODIUM CHL 0.9% 100 ML IV SCH ×4 (00:07→23:55)
[2021-07-22] MEDS: cloNIDine HCL 0.1 MG TAB PO PRN (04:49)
[2021-07-22] MEDS: HYDROcodone-ACET 7.5/325MG TAB PO PRN ×2 (04:59→23:58)
[2021-07-22 05:00] VITALS: BP 182/86
[2021-07-22] MEDS: ACCU-CHEK COMFORT CURVE STRIP VI SCH ×4 (06:00→23:25)
[2021-07-22] MEDS: InsuLIN REG 1unit/0.01ml Soln (100units/ml) SC SCH ×4 (06:39→23:57)
[2021-07-22 09:00] VITALS: BP 131/72
[2021-07-22] MEDS: NICOTINE 7MG/24HR TOPICAL PATCH TD SCH (10:00)
[2021-07-22 11:27] VITALS: BP 131/72
[2021-07-22 12:39] VITALS: BP 139/77
[2021-07-22 17:12] VITALS: BP 112/88
[2021-07-22 22:00] VITALS: BP 170/81
[2021-07-23] MEDS: cloNIDine HCL 0.1 MG TAB PO PRN (01:01)
[2021-07-23] MEDS: hydrALAZINE HCL 20 MG/ML VL IV PRN (02:48)
[2021-07-23 05:00] VITALS: BP 123/57
[2021-07-23] MEDS: InsuLIN REG 1unit/0.01ml Soln (100units/ml) SC SCH ×2 (05:41→12:00)
[2021-07-23] MEDS: ACCU-CHEK COMFORT CURVE STRIP VI SCH ×2 (05:43→12:00)
[2021-07-23 09:07] VITALS: BP 137/70
[2021-07-23] MEDS: NICOTINE 7MG/24HR TOPICAL PATCH TD SCH (09:37)
[2021-07-23] MEDS: AMPICILLIN & SULBACTAM SODIUM 3 GM in SODIUM CHL 0.9% 100 ML IV SCH (09:37)
[2021-07-23] MEDS: HYDROcodone-ACET 7.5/325MG TAB PO PRN (09:39)
[2021-07-23] MEDS ORDERED: LEVO500T31 PO (10:44)
[2021-07-23] MEDS ORDERED: HYDR-4902 PO (10:44)
[2021-07-23] MEDS ORDERED: CLIN300C8 PO (10:44)
[2021-07-23] MEDS ORDERED: AMOX-277 PO (11:02)
[2021-07-23 13:00] VITALS: BP 151/78
[2021-07-23 15:10] VITALS: BP 151/78
== END 2021-07-23 15:38 | disposition home or self-care (01) | DRG 871 ==
LOC: ER 10:16 → EDBD 10:16 → TELE 13:15 → ICU WEST 16:25 → WEST WING 07-05 17:14
PROVIDERS: ADMIT Registered Nurse; ATTEND Family Medicine
DX: A41.81 Sepsis due to Enterococcus (principal); E11.10 Type 2 diabetes mellitus with ketoacidosis without coma; G93.41 Metabolic encephalopathy; E43 Unspecified severe protein-calorie malnutrition; N17.0 Acute kidney failure with tubular necrosis; R65.21 Severe sepsis with septic shock; J85.1 Abscess of lung with pneumonia; N39.0 Urinary tract infection, site not specified; I82.C11 Acute embolism and thrombosis of right internal jugular vein; J90 Pleural effusion, not elsewhere classified; N18.4 Chronic kidney disease, stage 4 (severe); Z94.4 Liver transplant status; Z68.1 Body mass index [BMI] 19.9 or less, adult; E86.0 Dehydration; E87.5 Hyperkalemia; F17.210 Nicotine dependence, cigarettes, uncomplicated; D64.9 Anemia, unspecified; D69.6 Thrombocytopenia, unspecified; D75.839 Thrombocytosis, unspecified; E11.22 Type 2 diabetes mellitus with diabetic chronic kidney disease; I12.9 Hypertensive chronic kidney disease with stage 1 through stage 4 chronic kidney disease, or unspecified chronic kidney disease; E03.9 Hypothyroidism, unspecified; E11.40 Type 2 diabetes mellitus with diabetic neuropathy, unspecified; E11.21 Type 2 diabetes mellitus with diabetic nephropathy; Z20.822 Contact with and (suspected) exposure to COVID-19; F12.10 Cannabis abuse, uncomplicated; E87.6 Hypokalemia; B19.20 Unspecified viral hepatitis C without hepatic coma; Z71.51 Drug abuse counseling and surveillance of drug abuser; Z91.14 Patient's other noncompliance with medication regimen; Z99.2 Dependence on renal dialysis
CPT/HCPCS: 36415; 36600; 71045; 71250; 74177; 76604; 76705; 80048; 80053; 80074; 80307; 80320; 81001; 82010; 82805; 82962; 83605; 83735; 85007; 85025; 85027; 85610; 85730; 87040; 87077; 87081; 87086; 87088; 87186; 93005; 93306; 94640; 96361; 96365; 96375; G0378; J0696; J1450; J1815; J1885; J2405; J3490

== ENCOUNTER 2022-06-24 18:15 | Emergency (ER) | payer BC ==
[~2022-06-24] VITALS: Ht 154.9 cm; Wt 54.0 kg
[~2022-06-24 18:15] MED LIST changes: +AMOX-277 PO; -CEPH-509 PO; -CEPH500T PO; -CLIN-203 PO; +HYDR-4902 PO; +INSU1INJ19 SC; +LEVO500T31 PO; +METF-370 PO; +NYS5LQ MT; +ONDA-144 PO; +[UNRECOGNIZED DRUG - CODE] PO
[2022-06-24 21:32] LABS: Basophils # (auto) 0.1 10 ^3/uL (0-0.2); Basophils % (auto) 0.9 % (0.0-2.0); Eosinophils # (auto) 0.2 10 ^3/uL (0-0.8); Eosinophils % (auto) 1.7 % (0.0-7.0); Hematocrit 40.7 % (36.0-46.0); Hemoglobin 13.6 g/dL (12.2-16.2); Lymphocytes # (auto) 3.2 10 ^3/uL (0.4-5.4); Lymphocytes % (auto) 28.4 % (10.0-50.0); Mean Corpuscular Hemoglobin 30.3 pg (28.0-32.0); Mean Corpuscular Hgb Conc. 33.4 g/dL (32.0-36.0); Mean Corpuscular Volume 90.5 fL (80.0-100.0); Monocytes # (auto) 0.8 10 ^3/uL (0-1.3); Monocytes % (auto) 6.7 % (0.0-12.0); Neutrophils # (auto) 7.1 10 ^3/uL (1.6-8.6); Neutrophils % (auto) 62.3 % (37.0-80.0); Nucleated Red Blood Cells % 0.2 %; Red Cell Distribution Width 14.6 % (11.8-14.3); White Blood Cell 11.4 10^3/uL (4.4-10.8)
[2022-06-24 22:05] LABS: Albumin 3.3 g/dL (3.4-5.0); BUN/Creatinine Ratio 48.4 (10.0-20.0); Calcium 9.4 mg/dL (8.5-10.1); Potassium 4.8 mmol/L (3.5-5.1)
[2022-06-24 22:16] LABS: Bilirubin, Total 0.2 mg/dL (0.2-1.0); Total Protein 7.5 g/dL (6.4-8.2)
[2022-06-25 01:10] VITALS: BP 162/75
== END 2022-06-25 01:19 | disposition home or self-care (01) ==
LOC: ER 18:15
DX: S16.1XXA Strain of muscle, fascia and tendon at neck level, initial encounter (principal); M54.2 Cervicalgia; E86.0 Dehydration; E11.9 Type 2 diabetes mellitus without complications; I10 Essential (primary) hypertension; F17.210 Nicotine dependence, cigarettes, uncomplicated; F12.90 Cannabis use, unspecified, uncomplicated; F15.90 Other stimulant use, unspecified, uncomplicated; Z90.89 Acquired absence of other organs; Z79.899 Other long term (current) drug therapy; W18.09XA Striking against other object with subsequent fall, initial encounter; Y93.89 Activity, other specified; Y92.89 Other specified places as the place of occurrence of the external cause; Y99.8 Other external cause status
CPT/HCPCS: 36415; 70450; 71045; 72125; 80053; 84484; 85025; 93005

== ENCOUNTER 2022-07-24 17:39 | Inpatient (IN) | payer BC ==
[~2022-07-24] VITALS: Ht 154.9 cm; Wt 54.0 kg
[2022-07-24] MEDS ORDERED: IOHEXOL 300 MG/ML 100ML BOTTLE IJ ONE ×2 (19:45→21:20)
[2022-07-24 19:47] LABS: Basophils # (auto) 0.1 10 ^3/uL (0-0.2); Eosinophils # (auto) 0 10 ^3/uL (0-0.8); Lymphocytes # (auto) 1.7 10 ^3/uL (0.4-5.4); Monocytes # (auto) 1.3 10 ^3/uL (0-1.3)
[2022-07-24 19:49] LABS: Basophils % (auto) 0.5 % (0.0-2.0); Hematocrit 37.2 % (36.0-46.0); Hemoglobin 12.8 g/dL (12.2-16.2); Lymphocytes % (auto) 7.4 % (10.0-50.0); Mean Corpuscular Hemoglobin 30.8 pg (28.0-32.0); Mean Corpuscular Hgb Conc. 34.3 g/dL (32.0-36.0); Mean Corpuscular Volume 89.8 fL (80.0-100.0); Monocytes % (auto) 5.4 % (0.0-12.0); Neutrophils % (auto) 86.7 % (37.0-80.0); Red Blood Cells 4.15 10^6/uL (4.0-5.20); Red Cell Distribution Width 13.9 % (11.8-14.3); White Blood Cell 23.1 10^3/uL (4.4-10.8)
[2022-07-24 20:10] LABS: INR 1.08 (0.9-1.15); Partial Thromboplastin Time 29.9 sec (24.6-33.4)
[2022-07-24 20:27] LABS: Albumin 2.3 g/dL (3.4-5.0); Anion Gap 10 (5-15); Blood Urea Nitrogen 20 mg/dL (7-18); Calcium 8.6 mg/dL (8.5-10.1); Carbon Dioxide 20 mmol/L (21-32); Chloride 98 mmol/L (98-107); Glucose 152 mg/dL (74-106); Lipase 59 U/L (73-393); Potassium 3.8 mmol/L (3.5-5.1); Sodium 128 mmol/L (136-145)
[2022-07-24 20:31] LABS: Alanine Aminotransferase 53 U/L (13-56); Alkaline Phosphatase 158 U/L (45-117); Aspartate Aminotransferase 44 U/L (15-37); BUN/Creatinine Ratio 29.4 (10.0-20.0); Bilirubin, Total 0.3 mg/dL (0.2-1.0); Blood Alcohol < 3.0 mg/dL (0-5); GFR African American 114 mL/min; GFR Non-African American 94 mL/min; Total Protein 8.1 g/dL (6.4-8.2)
[2022-07-24] MEDS ORDERED: SODIUM CHLORIDE 0.9% 3,150 ML IV ONE (22:15)
[2022-07-24] MEDS ORDERED: metroNIDAZOLE 500MG/100ML 100 ML IV ONE (22:15)
[2022-07-24] MEDS ORDERED: cefTRIAXone 1GM/50ML D5W 50 ML IV ONE (22:15)
[2022-07-24] MEDS ORDERED: PANTOPRAZOLE 80 MG in SODIUM CHL 0.9% 100 ML IV ONE (23:30)
[2022-07-24] MEDS ORDERED: PANTOPRAZOLE 40mg/50ML NS AE 50 ML IV ONE (23:30)
[2022-07-24] MEDS ORDERED: OCTREOTIDE ACETATE 100 MCG in SODIUM CHL 0.9% 50 ML IV ONE (23:30)
[2022-07-25] MEDS ORDERED: DOCUSATE SOD 100 MG CAP PO PRN (03:45)
[2022-07-25] MEDS ORDERED: ACETAMINOPHEN 325 MG TAB PO PRN (03:45)
[2022-07-25] MEDS ORDERED: DEXTROSE (50%) 50ML SYRG IV PRN (03:45)
[2022-07-25] MEDS ORDERED: MORPHINE SULFATE INJ 2 MG/ml SYRG IV PRN (04:30)
[2022-07-25] MEDS ORDERED: NITROGLYCERIN 0.4 MG SL TAB SL PRN (04:30)
[2022-07-25 05:35] LABS: Basophils # (auto) 0.2 10 ^3/uL (0-0.2); Basophils % (auto) 0.8 % (0.0-2.0); Eosinophils # (auto) 0 10 ^3/uL (0-0.8); Eosinophils % (auto) 0.1 % (0.0-7.0); Hematocrit 32.6 % (36.0-46.0); Hemoglobin 11.4 g/dL (12.2-16.2); Lymphocytes # (auto) 2.5 10 ^3/uL (0.4-5.4); Lymphocytes % (auto) 11.1 % (10.0-50.0); Mean Corpuscular Hemoglobin 31.5 pg (28.0-32.0); Mean Corpuscular Hgb Conc. 35.1 g/dL (32.0-36.0); Mean Corpuscular Volume 89.7 fL (80.0-100.0); Monocytes # (auto) 1.6 10 ^3/uL (0-1.3); Monocytes % (auto) 7.1 % (0.0-12.0); Neutrophils # (auto) 17.8 10 ^3/uL (1.6-8.6); Neutrophils % (auto) 80.9 % (37.0-80.0); Red Blood Cells 3.63 10^6/uL (4.0-5.20); Red Cell Distribution Width 13.9 % (11.8-14.3); White Blood Cell 22.1 10^3/uL (4.4-10.8)
[2022-07-25 05:53] LABS: Calcium 7.8 mg/dL (8.5-10.1); Potassium 3.6 mmol/L (3.5-5.1)
[2022-07-25 05:57] LABS: BUN/Creatinine Ratio 37.7 (10.0-20.0); Bilirubin, Total 0.4 mg/dL (0.2-1.0); Total Protein 7.4 g/dL (6.4-8.2)
[2022-07-25] MEDS: ACCU-CHEK COMFORT CURVE STRIP VI SCH ×4 (07:00→21:34)
[2022-07-25] MEDS ORDERED: PANTOPRAZOLE 40 MG/10 ML VIAL INJ IV ONE (07:00)
[2022-07-25] MEDS: cefTRIAXone 1GM/50ML D5W 50 ML IV SCH (08:45)
[2022-07-25] MEDS: metroNIDAZOLE 500MG/100ML 100 ML IV SCH ×3 (08:45→21:34)
[2022-07-25] MEDS: SODIUM CHLORIDE 0.9% 1,000 ML IV SCH ×2 (08:45→20:25)
[2022-07-25] MEDS: InsuLIN REG 1unit/0.01ml Soln (100units/ml) SC SCH ×4 (08:54→21:35)
[2022-07-25] MEDS: PANTOPRAZOLE 40 MG/10 ML VIAL INJ IV SCH ×2 (08:56→21:33)
[2022-07-25] MEDS: OCTREOTIDE ACETATE 500 MCG in SODIUM CHL 0.9% 99 ML IV SCH ×3 (09:30→21:33)
[2022-07-25 11:01] VITALS: BP 139/74
[2022-07-25 12:30] VITALS: BP 126/65
[2022-07-25] MEDS: MORPHINE SULFATE INJ 2 MG/ml SYRG IV PRN (14:29)
[2022-07-25] MEDS: ONDANSETRON HCL 4 MG/2 ML VIAL IV PRN (16:06)
[2022-07-25] MEDS ORDERED: CLON0.1T PO (17:32)
[2022-07-25] MEDS ORDERED: INSU100I61 (17:32)
[2022-07-25] MEDS ORDERED: LISI40TA11 (17:32)
[2022-07-25 18:00] VITALS: BP 160/82
[2022-07-25 22:00] VITALS: BP 158/71
[2022-07-26] MEDS: MORPHINE SULFATE INJ 2 MG/ml SYRG IV PRN ×4 (04:31→19:47)
[2022-07-26 05:00] VITALS: BP 148/76
[2022-07-26] MEDS: OCTREOTIDE ACETATE 500 MCG in SODIUM CHL 0.9% 99 ML IV SCH ×2 (05:27→15:20)
[2022-07-26] MEDS: metroNIDAZOLE 500MG/100ML 100 ML IV SCH ×3 (05:27→22:03)
[2022-07-26 05:32] LABS: Eosinophils # (auto) 0 10 ^3/uL (0-0.8); Hemoglobin 11.2 g/dL (12.2-16.2); Lymphocytes # (auto) 1.6 10 ^3/uL (0.4-5.4); Lymphocytes % (auto) 10.2 % (10.0-50.0); Monocytes % (auto) 6.3 % (0.0-12.0); Neutrophils % (auto) 82.9 % (37.0-80.0)
[2022-07-26 05:35] LABS: Basophils # (auto) 0.1 10 ^3/uL (0-0.2); Basophils % (auto) 0.4 % (0.0-2.0); Eosinophils % (auto) 0.2 % (0.0-7.0); Hematocrit 31.8 % (36.0-46.0); Mean Corpuscular Hemoglobin 32.7 pg (28.0-32.0); Mean Corpuscular Hgb Conc. 35.2 g/dL (32.0-36.0); Mean Corpuscular Volume 92.8 fL (80.0-100.0); Neutrophils # (auto) 13.3 10 ^3/uL (1.6-8.6); Nucleated Red Blood Cells % 0.1 %; Red Blood Cells 3.43 10^6/uL (4.0-5.20); Red Cell Distribution Width 13.9 % (11.8-14.3); White Blood Cell 16.1 10^3/uL (4.4-10.8)
[2022-07-26 05:37] LABS: Albumin 1.8 g/dL (3.4-5.0); Calcium 8.1 mg/dL (8.5-10.1); Potassium 3.7 mmol/L (3.5-5.1)
[2022-07-26 05:42] LABS: BUN/Creatinine Ratio 30.2 (10.0-20.0); Bilirubin, Total 0.2 mg/dL (0.2-1.0); Total Protein 6.5 g/dL (6.4-8.2)
[2022-07-26] MEDS: InsuLIN REG 1unit/0.01ml Soln (100units/ml) SC SCH ×4 (06:30→22:00)
[2022-07-26] MEDS: ACCU-CHEK COMFORT CURVE STRIP VI SCH ×4 (06:30→22:07)
[2022-07-26 08:49] VITALS: BP 147/73
[2022-07-26] MEDS: PANTOPRAZOLE 40 MG/10 ML VIAL INJ IV SCH ×2 (09:42→22:03)
[2022-07-26] MEDS: cefTRIAXone 1GM/50ML D5W 50 ML IV SCH (09:42)
[2022-07-26 12:47] VITALS: BP 143/72
[2022-07-26] MEDS: SODIUM CHLORIDE 0.9% 1,000 ML IV SCH (15:32)
[2022-07-26 16:36] VITALS: BP 152/87
[2022-07-26 22:00] VITALS: BP 154/75
[2022-07-26] MEDS ORDERED: MELATONIN 5 MG TAB PO ONE (23:30)
[2022-07-26] MEDS: HYDROcodone-ACET 5/325MG TAB PO PRN (23:34)
[2022-07-27] MEDS: OCTREOTIDE ACETATE 500 MCG in SODIUM CHL 0.9% 99 ML IV SCH ×3 (01:30→21:30)
[2022-07-27] MEDS: ONDANSETRON HCL 4 MG/2 ML VIAL IV PRN (03:59)
[2022-07-27] MEDS: MORPHINE SULFATE INJ 2 MG/ml SYRG IV PRN ×2 (04:38→21:19)
[2022-07-27 05:00] VITALS: BP 154/77
[2022-07-27] MEDS: SODIUM CHLORIDE 0.9% 1,000 ML IV SCH (05:45)
[2022-07-27] MEDS: metroNIDAZOLE 500MG/100ML 100 ML IV SCH ×3 (06:19→21:20)
[2022-07-27] MEDS: ACCU-CHEK COMFORT CURVE STRIP VI SCH ×4 (06:23→21:14)
[2022-07-27] MEDS: InsuLIN REG 1unit/0.01ml Soln (100units/ml) SC SCH ×4 (06:30→21:16)
[2022-07-27] MEDS ORDERED: MIDAZOLAM HCL 5 MG/ML-1ML VIAL ONE (07:32)
[2022-07-27] MEDS ORDERED: fentaNYL CITRATE 100 MCG/2 ML VL ONE (07:33)
[2022-07-27] MEDS ORDERED: diphenhdrAMINE HCL 50 MG/1 ML VL ONE (07:33)
[2022-07-27] MEDS ORDERED: SIMETHICONE 40 MG/0.6 ML ORAL DROP ONE (07:56)
[2022-07-27] MEDS ORDERED: BENZOCAINE (DENTAL) 20 % SPRAY 60ML MT ONE (08:05)
[2022-07-27 08:35] VITALS: BP 147/69
[2022-07-27] MEDS ORDERED: MIDAZOLAM HCL 5 MG/ML-1ML VIAL IV ONE (08:35)
[2022-07-27] MEDS ORDERED: fentaNYL CITRATE 100 MCG/2 ML VL IV ONE (08:35)
[2022-07-27] MEDS ORDERED: diphenhdrAMINE HCL 50 MG/1 ML VL IV ONE ×2 (08:35→08:39)
[2022-07-27] MEDS: cefTRIAXone 1GM/50ML D5W 50 ML IV SCH (09:50)
[2022-07-27] MEDS: PANTOPRAZOLE 40 MG/10 ML VIAL INJ IV SCH ×2 (09:50→21:19)
[2022-07-27] MEDS: SUCRALFATE 1 GM/10 ML ORAL SUSP PO SCH ×3 (11:35→21:19)
[2022-07-27] MEDS: HYDROcodone-ACET 5/325MG TAB PO PRN ×2 (11:56→15:57)
[2022-07-27 12:25] VITALS: BP_SYST 124; BP_SYST 154; BP_DIAS 77; BP_DIAS 82
[2022-07-27 16:20] VITALS: BP 168/80
[2022-07-27 18:33] LABS: Urine Bacteria FEW /hpf (None Seen); Urine Blood 1+ /uL (Negative); Urine Mucus FEW (None Seen); Urine Specific Gravity 1.017 (1.001-1.035); Urine WBC 3119 /hpf (0 - 5); Urine WBC Clumps PRESENT /hpf (None Seen)
[2022-07-27 22:00] VITALS: BP 147/72
[2022-07-28] MEDS: metroNIDAZOLE 500MG/100ML 100 ML IV SCH ×4 (01:00→23:01)
[2022-07-28] MEDS: SODIUM CHLORIDE 0.9% 1,000 ML IV SCH ×2 (01:00→15:05)
[2022-07-28] MEDS: MORPHINE SULFATE INJ 2 MG/ml SYRG IV PRN ×4 (02:37→23:01)
[2022-07-28 05:00] VITALS: BP 178/88
[2022-07-28] MEDS: InsuLIN REG 1unit/0.01ml Soln (100units/ml) SC SCH ×4 (06:35→22:26)
[2022-07-28] MEDS: SUCRALFATE 1 GM/10 ML ORAL SUSP PO SCH ×4 (06:36→22:27)
[2022-07-28] MEDS: ACCU-CHEK COMFORT CURVE STRIP VI SCH ×4 (06:46→22:24)
[2022-07-28 09:00] VITALS: BP 192/94
[2022-07-28] MEDS: PANTOPRAZOLE 40 MG/10 ML VIAL INJ IV SCH ×2 (09:17→22:28)
[2022-07-28] MEDS: cefTRIAXone 1GM/50ML D5W 50 ML IV SCH (09:17)
[2022-07-28] MEDS: OCTREOTIDE ACETATE 500 MCG in SODIUM CHL 0.9% 99 ML IV SCH ×2 (10:12→17:30)
[2022-07-28] MEDS: HYDROcodone-ACET 5/325MG TAB PO PRN (11:59)
[2022-07-28] MEDS: amLODIPine BESYLATE 5 MG TAB PO SCH (11:59)
[2022-07-28 13:11] VITALS: BP 168/81
[2022-07-28 17:00] VITALS: BP 161/80
[2022-07-28 22:00] VITALS: BP 159/81
[2022-07-29] VITALS (7 sets, daily range): BP systolic 153–166; BP diastolic 74–86
[2022-07-29] MEDS: OCTREOTIDE ACETATE 500 MCG in SODIUM CHL 0.9% 99 ML IV SCH ×2 (03:51→14:14)
[2022-07-29] MEDS: MORPHINE SULFATE INJ 2 MG/ml SYRG IV PRN ×4 (04:35→18:59)
[2022-07-29] MEDS: metroNIDAZOLE 500MG/100ML 100 ML IV SCH ×2 (06:00→14:13)
[2022-07-29] MEDS: SUCRALFATE 1 GM/10 ML ORAL SUSP PO SCH ×4 (06:24→22:44)
[2022-07-29] MEDS: ACCU-CHEK COMFORT CURVE STRIP VI SCH ×3 (06:25→16:38)
[2022-07-29] MEDS: InsuLIN REG 1unit/0.01ml Soln (100units/ml) SC SCH ×4 (06:26→22:00)
[2022-07-29] MEDS: HYDROcodone-ACET 5/325MG TAB PO PRN (06:53)
[2022-07-29] MEDS: PANTOPRAZOLE 40 MG/10 ML VIAL INJ IV SCH ×2 (09:33→22:44)
[2022-07-29] MEDS: cefTRIAXone 1GM/50ML D5W 50 ML IV SCH (09:33)
[2022-07-29] MEDS: amLODIPine BESYLATE 5 MG TAB PO SCH (09:34)
[2022-07-29] MEDS: SODIUM CHLORIDE 0.9% 1,000 ML IV SCH (09:35)
[2022-07-29] MEDS: ONDANSETRON HCL 4 MG/2 ML VIAL IV PRN (18:59)
[2022-07-30] MEDS: MORPHINE SULFATE INJ 2 MG/ml SYRG IV PRN ×3 (00:20→09:28)
[2022-07-30] MEDS: OCTREOTIDE ACETATE 500 MCG in SODIUM CHL 0.9% 99 ML IV SCH ×3 (00:49→20:51)
[2022-07-30] MEDS: ACCU-CHEK COMFORT CURVE STRIP VI SCH ×6 (00:49→22:00)
[2022-07-30] MEDS: metroNIDAZOLE 500MG/100ML 100 ML IV SCH ×4 (01:16→20:50)
[2022-07-30] MEDS: SODIUM CHLORIDE 0.9% 1,000 ML IV SCH ×2 (02:55→17:05)
[2022-07-30 05:00] VITALS: BP 172/86
[2022-07-30] MEDS: SUCRALFATE 1 GM/10 ML ORAL SUSP PO SCH ×4 (06:32→20:51)
[2022-07-30] MEDS: InsuLIN REG 1unit/0.01ml Soln (100units/ml) SC SCH ×4 (06:37→21:11)
[2022-07-30 09:00] VITALS: BP 166/85
[2022-07-30] MEDS: PANTOPRAZOLE 40 MG/10 ML VIAL INJ IV SCH ×2 (09:23→21:08)
[2022-07-30] MEDS: cefTRIAXone 1GM/50ML D5W 50 ML IV SCH (09:23)
[2022-07-30] MEDS: amLODIPine BESYLATE 5 MG TAB PO SCH (09:24)
[2022-07-30] MEDS: METOPROLOL TARTRATE 25 MG TAB PO SCH ×2 (09:27→20:55)
[2022-07-30 12:42] VITALS: BP 153/81
[2022-07-30] MEDS: HYDROcodone-ACET 5/325MG TAB PO PRN (14:22)
[2022-07-30 17:00] VITALS: BP 157/62
[2022-07-30 22:00] VITALS: BP 171/77
[2022-07-31 05:00] VITALS: BP 174/100
[2022-07-31] MEDS: metroNIDAZOLE 500MG/100ML 100 ML IV SCH ×3 (05:27→21:13)
[2022-07-31] MEDS: OCTREOTIDE ACETATE 500 MCG in SODIUM CHL 0.9% 99 ML IV SCH ×2 (05:30→15:10)
[2022-07-31] MEDS: MORPHINE SULFATE INJ 2 MG/ml SYRG IV PRN ×3 (05:41→22:24)
[2022-07-31] MEDS: SUCRALFATE 1 GM/10 ML ORAL SUSP PO SCH ×4 (06:02→21:12)
[2022-07-31] MEDS: InsuLIN REG 1unit/0.01ml Soln (100units/ml) SC SCH ×4 (06:11→21:26)
[2022-07-31] MEDS: ACCU-CHEK COMFORT CURVE STRIP VI SCH ×4 (06:12→21:30)
[2022-07-31 06:53] VITALS: BP 144/92
[2022-07-31 09:00] VITALS: BP 174/86
[2022-07-31] MEDS: SODIUM CHLORIDE 0.9% 1,000 ML IV SCH (09:45)
[2022-07-31] MEDS: PANTOPRAZOLE 40 MG/10 ML VIAL INJ IV SCH ×2 (09:45→21:12)
[2022-07-31] MEDS: cefTRIAXone 1GM/50ML D5W 50 ML IV SCH (09:45)
[2022-07-31] MEDS: METOPROLOL TARTRATE 25 MG TAB PO SCH ×2 (09:46→21:13)
[2022-07-31] MEDS: amLODIPine BESYLATE 5 MG TAB PO SCH (09:47)
[2022-07-31] MEDS: Pro-Stat SF 30ml Vanilla PO SCH (10:00)
[2022-07-31] MEDS ORDERED: LISINOPRIL 20 MG TAB PO ONE (12:15)
[2022-07-31 12:40] VITALS: BP 162/77
[2022-07-31 17:00] VITALS: BP 148/75
[2022-07-31 21:50] VITALS: BP 166/87
[2022-08-01] VITALS (7 sets, daily range): BP systolic 121–189; BP diastolic 66–88
[2022-08-01] MEDS: OCTREOTIDE ACETATE 500 MCG in SODIUM CHL 0.9% 99 ML IV SCH ×3 (00:51→21:32)
[2022-08-01] MEDS: SODIUM CHLORIDE 0.9% 1,000 ML IV SCH ×2 (02:34→19:06)
[2022-08-01] MEDS: SUCRALFATE 1 GM/10 ML ORAL SUSP PO SCH ×4 (05:32→21:33)
[2022-08-01] MEDS: metroNIDAZOLE 500MG/100ML 100 ML IV SCH ×3 (05:32→21:33)
[2022-08-01] MEDS: InsuLIN REG 1unit/0.01ml Soln (100units/ml) SC SCH ×4 (05:46→22:17)
[2022-08-01] MEDS: ACCU-CHEK COMFORT CURVE STRIP VI SCH ×4 (05:48→22:17)
[2022-08-01] MEDS: cefTRIAXone 1GM/50ML D5W 50 ML IV SCH (09:00)
[2022-08-01] MEDS: MORPHINE SULFATE INJ 2 MG/ml SYRG IV PRN ×3 (09:01→20:13)
[2022-08-01] MEDS: PANTOPRAZOLE 40 MG/10 ML VIAL INJ IV SCH ×2 (10:08→21:33)
[2022-08-01] MEDS: LISINOPRIL 20 MG TAB PO SCH (10:09)
[2022-08-01] MEDS: METOPROLOL TARTRATE 25 MG TAB PO SCH ×2 (10:09→21:47)
[2022-08-01] MEDS: amLODIPine BESYLATE 5 MG TAB PO SCH (10:10)
[2022-08-01] MEDS: Pro-Stat SF 30ml Vanilla PO SCH (10:11)
[2022-08-01] MEDS ORDERED: ISOSORBIDE MONONITRATE ER 60 MG TAB PO ONE (10:30)
[2022-08-01] MEDS: hydrALAZINE HCL 25 MG TAB PO SCH ×2 (14:19→22:07)
[2022-08-02 05:00] VITALS: BP 165/82
[2022-08-02 05:52] LABS: Basophils # (auto) 0 10 ^3/uL (0-0.2); Eosinophils # (auto) 0.2 10 ^3/uL (0-0.8); Hematocrit 31.7 % (36.0-46.0); Mean Corpuscular Hemoglobin 30.9 pg (28.0-32.0); Mean Corpuscular Hgb Conc. 34.7 g/dL (32.0-36.0); Mean Corpuscular Volume 89.1 fL (80.0-100.0); Monocytes # (auto) 0.7 10 ^3/uL (0-1.3); Neutrophils # (auto) 9.7 10 ^3/uL (1.6-8.6); Red Blood Cells 3.56 10^6/uL (4.0-5.20)
[2022-08-02] MEDS: SUCRALFATE 1 GM/10 ML ORAL SUSP PO SCH ×4 (05:52→21:09)
[2022-08-02] MEDS: metroNIDAZOLE 500MG/100ML 100 ML IV SCH ×3 (05:52→21:09)
[2022-08-02] MEDS: hydrALAZINE HCL 25 MG TAB PO SCH ×3 (05:53→21:09)
[2022-08-02 05:55] LABS: Basophils % (auto) 0.3 % (0.0-2.0); Eosinophils % (auto) 1.4 % (0.0-7.0); Lymphocytes # (auto) 2.5 10 ^3/uL (0.4-5.4); Lymphocytes % (auto) 18.8 % (10.0-50.0); Neutrophils % (auto) 74.5 % (37.0-80.0); Red Cell Distribution Width 13.8 % (11.8-14.3); White Blood Cell 13.1 10^3/uL (4.4-10.8)
[2022-08-02] MEDS: InsuLIN REG 1unit/0.01ml Soln (100units/ml) SC SCH ×4 (05:58→21:27)
[2022-08-02] MEDS: ACCU-CHEK COMFORT CURVE STRIP VI SCH ×4 (06:01→21:27)
[2022-08-02] MEDS: SODIUM CHLORIDE 0.9% 1,000 ML IV SCH (06:29)
[2022-08-02 08:00] VITALS: BP 144/70
[2022-08-02 08:25] VITALS: BP 144/70
[2022-08-02] MEDS: OCTREOTIDE ACETATE 500 MCG in SODIUM CHL 0.9% 99 ML IV SCH ×2 (09:37→17:30)
[2022-08-02] MEDS: PANTOPRAZOLE 40 MG/10 ML VIAL INJ IV SCH ×2 (09:37→21:07)
[2022-08-02] MEDS: cefTRIAXone 1GM/50ML D5W 50 ML IV SCH (09:37)
[2022-08-02] MEDS: HYDROcodone-ACET 5/325MG TAB PO PRN (09:38)
[2022-08-02] MEDS: METOPROLOL TARTRATE 25 MG TAB PO SCH ×2 (09:38→21:08)
[2022-08-02] MEDS: ISOSORBIDE MONONITRATE ER 60 MG TAB PO SCH (09:38)
[2022-08-02] MEDS: Pro-Stat SF 30ml Vanilla PO SCH (09:39)
[2022-08-02] MEDS: LISINOPRIL 20 MG TAB PO SCH (09:39)
[2022-08-02] MEDS ORDERED: DEXTROSE 10% 250 ML IV ONE (10:38)
[2022-08-02] MEDS: MORPHINE SULFATE INJ 2 MG/ml SYRG IV PRN (12:05)
[2022-08-02 12:30] VITALS: BP 119/56
[2022-08-02 16:30] VITALS: BP 147/75
[2022-08-02 22:00] VITALS: BP 148/77
[2022-08-03] MEDS: OCTREOTIDE ACETATE 500 MCG in SODIUM CHL 0.9% 99 ML IV SCH ×2 (03:30→14:22)
[2022-08-03] MEDS: SODIUM CHLORIDE 0.9% 1,000 ML IV SCH (04:31)
[2022-08-03 05:00] VITALS: BP_SYST 141; BP_SYST 150; BP_DIAS 63; BP_DIAS 68
[2022-08-03] MEDS: SUCRALFATE 1 GM/10 ML ORAL SUSP PO SCH ×2 (05:47→11:44)
[2022-08-03] MEDS: HYDROcodone-ACET 5/325MG TAB PO PRN (05:48)
[2022-08-03] MEDS: hydrALAZINE HCL 25 MG TAB PO SCH ×2 (05:48→14:22)
[2022-08-03] MEDS: metroNIDAZOLE 500MG/100ML 100 ML IV SCH (05:50)
[2022-08-03] MEDS: InsuLIN REG 1unit/0.01ml Soln (100units/ml) SC SCH ×2 (05:55→11:46)
[2022-08-03] MEDS: ACCU-CHEK COMFORT CURVE STRIP VI SCH ×2 (05:56→11:44)
[2022-08-03 08:00] VITALS: BP 133/73
[2022-08-03 09:00] VITALS: BP 133/73
[2022-08-03] MEDS: PANTOPRAZOLE 40 MG/10 ML VIAL INJ IV SCH (09:48)
[2022-08-03] MEDS: cefTRIAXone 1GM/50ML D5W 50 ML IV SCH (09:48)
[2022-08-03] MEDS: LISINOPRIL 20 MG TAB PO SCH (09:49)
[2022-08-03] MEDS: METOPROLOL TARTRATE 25 MG TAB PO SCH (09:49)
[2022-08-03] MEDS: ISOSORBIDE MONONITRATE ER 60 MG TAB PO SCH (09:49)
[2022-08-03] MEDS: Pro-Stat SF 30ml Vanilla PO SCH (10:56)
[2022-08-03 13:00] VITALS: BP 134/68
[2022-08-03] MEDS ORDERED: HYDR25TA87 PO (13:18)
[2022-08-03] MEDS ORDERED: ISO60SRT PO (13:18)
[2022-08-03] MEDS ORDERED: SUCR1SUS10 PO (13:19)
[2022-08-03] MEDS ORDERED: MET25T PO (13:19)
[2022-08-03] MEDS ORDERED: PANT40TA2 PO (13:19)
[2022-08-03 13:56] VITALS: BP 134/68
== END 2022-08-03 14:44 | disposition home or self-care (01) | DRG 378 ==
LOC: ER 17:39 → TELE 07-25 04:27 → TELE-WESTW 07-25 10:39
PROVIDERS: ADMIT Nurse Practitioner Family; ATTEND Internal Medicine
PROC: 0DB68ZX Excision of Stomach, Via Natural or Artificial Opening Endoscopic, Diagnostic (ICD-10-PCS; 2022-07-27)
PROC: 0DB48ZX Excision of Esophagogastric Junction, Via Natural or Artificial Opening Endoscopic, Diagnostic (ICD-10-PCS; 2022-07-27)
PROC: 0DB98ZX Excision of Duodenum, Via Natural or Artificial Opening Endoscopic, Diagnostic (ICD-10-PCS; principal; 2022-07-27 08:28)
DX: K29.91 Gastroduodenitis, unspecified, with bleeding (principal); E87.1 Hypo-osmolality and hyponatremia; K25.4 Chronic or unspecified gastric ulcer with hemorrhage; E11.65 Type 2 diabetes mellitus with hyperglycemia; D75.839 Thrombocytosis, unspecified; E86.0 Dehydration; F17.210 Nicotine dependence, cigarettes, uncomplicated; I10 Essential (primary) hypertension; I16.0 Hypertensive urgency; K44.9 Diaphragmatic hernia without obstruction or gangrene; R79.89 Other specified abnormal findings of blood chemistry; E87.8 Other disorders of electrolyte and fluid balance, not elsewhere classified
CPT/HCPCS: 36415; 71045; 74177; 80053; 80320; 81001; 82010; 82962; 83036; 83605; 83690; 83880; 83930; 84484; 85025; 85610; 85730; 86850; 86900; 86901; 87040; 87086; 87088; 87340; 93005; 96361; 96365; 96366; 96368; 99291; C9113; G0378; J0696; J1815; J2250; J2405; J3490

== ENCOUNTER 2022-11-02 11:14 | Inpatient (IN) | payer BC ==
[~2022-11-02] VITALS: Ht 154.9 cm; Wt 108.8 kg
[~2022-11-02 11:14] MED LIST changes: -AMOX-277 PO; +HYDR25TA87 PO; +INSU100I61; +ISO60SRT PO; -LEVO500T31 PO; +LISI40TA16; +MET25T PO; -METF-370 PO; -NYS5LQ MT; -ONDA-144 PO; +PANT40TA2 PO; +SUCR1SUS26 PO
[2022-11-02] MEDS ORDERED: PANTOPRAZOLE 40 MG/10 ML VIAL INJ IV ONE (11:45)
[2022-11-02] MEDS ORDERED: SODIUM CHLORIDE 0.9% 1,000 ML IV ONE (11:45)
[2022-11-02 12:27] LABS: Hemoglobin 11.4 g/dL (12.2-16.2)
[2022-11-02 12:30] LABS: Hematocrit 34.2 % (36.0-46.0); Mean Corpuscular Hemoglobin 29.9 pg (28.0-32.0); Mean Corpuscular Hgb Conc. 33.2 g/dL (32.0-36.0); Mean Corpuscular Volume 89.9 fL (80.0-100.0); Red Blood Cells 3.81 10^6/uL (4.0-5.20); Red Cell Distribution Width 14.3 % (11.8-14.3)
[2022-11-02 12:37] LABS: White Blood Cell 31.9 10^3/uL (4.4-10.8)
[2022-11-02 12:38] LABS: Band Neutrophils % (manual) 0; Basophils % (manual) 0 (0.0-2.0); Blast Cells 0; Eosinophils % (manual) 0 (0-7); Metamyelocytes % 0; Myelocytes % 0; Promyelocytes % 0; Reactive Lymphocytes 0
[2022-11-02 12:39] VITALS: PULSE 70; RESP 18; O2SAT 96
[2022-11-02 12:50] LABS: Alanine Aminotransferase 11 U/L (7-40); Albumin 3.7 g/dL (3.2-4.8); Alkaline Phosphatase 94 U/L (46-116); Anion Gap 10.6 (5-15); Aspartate Aminotransferase 12 U/L (13-40); BUN/Creatinine Ratio 21.8 (10.0-20.0); Bilirubin, Total 0.4 mg/dL (0.2-1.0); Blood Urea Nitrogen 46 mg/dL (9-23); Carbon Dioxide 19.4 mmol/L (20-30); Chloride 96 mmol/L (98-107); Glucose 216 mg/dL (74-106); Lipase 32 U/L (12-53); Magnesium 1.6 mg/dL (1.6-2.6); Potassium 3.9 mmol/L (3.5-5.1); Sodium 126 mmol/L (136-145); Total Protein 6.6 g/dL (5.7-8.2)
[2022-11-02 12:59] LABS: Urine Bacteria NONE SEEN /hpf (None Seen); Urine Budding Yeast MANY /hpf (None Seen); Urine WBC 3115 /hpf (0 - 5); Urine WBC Clumps PRESENT /hpf (None Seen)
[2022-11-02 13:27] LABS: Urine Clarity CLOUDY (Clear); Urine Color Amber (Yellow); Urine Protein, UAD 2+ (Negative)
[2022-11-02 13:28] LABS: Urine Blood 3+ /uL (Negative); Urine Urobilinogen Normal (Negative)
[2022-11-02 13:38] LABS: Lymphocytes % (manual) 4 (10.0-50.0); Monocytes % (manual) 1 (0-12)
[2022-11-02 13:39] LABS: Platelet Estimate Adequate
[2022-11-02] MEDS ORDERED: PIPERACILLIN-TAZOB 3.375GM 100 ML IV ONE (13:45)
[2022-11-02] MEDS ORDERED: SODIUM CHLORIDE 0.9% 1,550 ML IV ONE (13:45)
[2022-11-02] MEDS ORDERED: cefTRIAXone 1GM/50ML D5W 50 ML IV ONE (13:45)
[2022-11-02] MEDS ORDERED: DEXTROSE (50%) 50ML SYRG IV PRN (13:45)
[2022-11-02 14:06] LABS: COVID19 ANTIGEN SOFIA FIA NEGATIVE (NEGATIVE)
[2022-11-02] MEDS: SODIUM CHLORIDE 0.9% 1,000 ML IV SCH ×2 (14:44→15:15)
[2022-11-02] MEDS: InsuLIN REG 1unit/0.01ml Soln (100units/ml) SC SCH (16:25)
[2022-11-02] MEDS: SUCRALFATE 1 GM/10 ML ORAL SUSP PO SCH (16:26)
[2022-11-02] MEDS: ACCU-CHEK COMFORT CURVE STRIP VI SCH (16:26)
[2022-11-02] MEDS: ACETAMINOPHEN 325 MG TAB PO PRN (16:57)
[2022-11-02] MEDS ORDERED: ACCU-CHEK COMFORT CURVE STRIP VI SCH (17:00)
[2022-11-02] MEDS ORDERED: InsuLIN REG 1unit/0.01ml Soln (100units/ml) SC SCH (17:00)
[2022-11-02 19:55] VITALS: PULSE 79; RESP 23; O2SAT 94
[2022-11-02] MEDS ORDERED: traMADol HCL 50 MG TAB PO ONE (20:30)
[2022-11-03] MEDS: ACCU-CHEK COMFORT CURVE STRIP VI SCH ×5 (00:14→21:45)
[2022-11-03] MEDS: InsuLIN REG 1unit/0.01ml Soln (100units/ml) SC SCH ×5 (00:15→21:45)
[2022-11-03] MEDS: SODIUM CHLORIDE 0.9% 1,000 ML IV SCH ×4 (00:18→16:00)
[2022-11-03] MEDS: SUCRALFATE 1 GM/10 ML ORAL SUSP PO SCH ×5 (00:33→21:39)
[2022-11-03] MEDS: HEPARIN SODIUM (PORCINE) 5000 UNITS/ML 1ML VIAL SC SCH ×3 (00:38→21:45)
[2022-11-03] MEDS ORDERED: VANCOMYCIN PER PHARMACY 0 MG IV SCH (00:45)
[2022-11-03] MEDS ORDERED: VANCOMYCIN 1GM/250ML 250 ML IV ONE (01:30)
[2022-11-03 04:58] LABS: Hematocrit 34.8 % (36.0-46.0); Hemoglobin 11.7 g/dL (12.2-16.2); Mean Corpuscular Hemoglobin 30.1 pg (28.0-32.0); Mean Corpuscular Hgb Conc. 33.7 g/dL (32.0-36.0); Mean Corpuscular Volume 89.2 fL (80.0-100.0); Red Cell Distribution Width 14.2 % (11.8-14.3); White Blood Cell 27.1 10^3/uL (4.4-10.8)
[2022-11-03 05:10] LABS: Basophils % (manual) 0 (0.0-2.0); Blast Cells 0; Eosinophils % (manual) 0 (0-7); Metamyelocytes % 0; Myelocytes % 0; Promyelocytes % 0; Reactive Lymphocytes 0
[2022-11-03 05:13] LABS: Alanine Aminotransferase 10 U/L (7-40); Albumin 3.4 g/dL (3.2-4.8); Alkaline Phosphatase 100 U/L (46-116); Anion Gap 7.7 (5-15); Aspartate Aminotransferase < 8 U/L (13-40); Blood Urea Nitrogen 39 mg/dL (9-23); Calcium 7.8 mg/dL (8.7-10.4); Carbon Dioxide 19.3 mmol/L (20-30); Chloride 104 mmol/L (98-107); Glucose 151 mg/dL (74-106); Potassium 3.3 mmol/L (3.5-5.1)
[2022-11-03 05:14] LABS: Bilirubin, Total 0.3 mg/dL (0.2-1.0); Total Protein 6.1 g/dL (5.7-8.2)
[2022-11-03 05:57] LABS: Sodium 131 mmol/L (136-145)
[2022-11-03 07:14] VITALS: PULSE 81; RESP 20; O2SAT 95
[2022-11-03 08:53] LABS: Band Neutrophils % (manual) 1; Lymphocytes % (manual) 3 (10.0-50.0); Monocytes % (manual) 3 (0-12); Platelet Estimate Adequate
[2022-11-03] MEDS: PANTOPRAZOLE 40 MG TAB PO SCH (10:12)
[2022-11-03] MEDS ORDERED: POTASSIUM CHL 20 Meq TABLET PO ONE (10:45)
[2022-11-03] MEDS ORDERED: LACTATED RINGER'S 1,000 ML IV SCH (10:45)
[2022-11-03 11:00] VITALS: BP 178/87; PULSE 87; RESP 21; TEMP 98.2; O2SAT 96
[2022-11-03 16:00] VITALS: BP 161/85; PULSE 96; RESP 22; TEMP 98.5; O2SAT 96
[2022-11-03] MEDS ORDERED: cefTRIAXone 1GM/50ML D5W 50 ML IV ONE (16:00)
[2022-11-03] MEDS: PIPERACILLIN-TAZOB 3.375GM 100 ML IV ONE ×2 (16:15→18:13)
[2022-11-03 20:00] VITALS: BP 165/80; PULSE 87; RESP 18; TEMP 97.7; O2SAT 96
[2022-11-03] MEDS: PIPERACILLIN-TAZOB 3.375GM 100 ML IV SCH (21:39)
[2022-11-03 22:00] VITALS: BP 165/80; PULSE 87; RESP 18; TEMP 97.7; O2SAT 96
[2022-11-04] MEDS ORDERED: VANCOMYCIN 750mg/250ml 250 ML IV SCH ×2 (03:00→08:00)
[2022-11-04 05:00] VITALS: BP 154/86; PULSE 83; RESP 18; TEMP 97.7; O2SAT 96
[2022-11-04] MEDS ORDERED: cloNIDine HCL 0.1 MG TAB PO ONE (05:30)
[2022-11-04] MEDS: SUCRALFATE 1 GM/10 ML ORAL SUSP PO SCH ×4 (05:52→21:30)
[2022-11-04] MEDS: PIPERACILLIN-TAZOB 3.375GM 100 ML IV SCH (05:52)
[2022-11-04] MEDS: ACCU-CHEK COMFORT CURVE STRIP VI SCH ×4 (06:00→21:24)
[2022-11-04] MEDS: InsuLIN REG 1unit/0.01ml Soln (100units/ml) SC SCH ×4 (06:01→21:24)
[2022-11-04 06:14] LABS: Basophils # (auto) 0 10 ^3/uL (0-0.2); Basophils % (auto) 0.2 % (0.0-2.0); Eosinophils # (auto) 0 10 ^3/uL (0-0.8); Eosinophils % (auto) 0.3 % (0.0-7.0); Hematocrit 38.8 % (36.0-46.0); Hemoglobin 12.9 g/dL (12.2-16.2); Lymphocytes # (auto) 1.2 10 ^3/uL (0.4-5.4); Lymphocytes % (auto) 6.2 % (10.0-50.0); Mean Corpuscular Hemoglobin 30.4 pg (28.0-32.0); Mean Corpuscular Hgb Conc. 33.3 g/dL (32.0-36.0); Mean Corpuscular Volume 91.2 fL (80.0-100.0); Monocytes # (auto) 1.9 10 ^3/uL (0-1.3); Monocytes % (auto) 9.7 % (0.0-12.0); Neutrophils # (auto) 16.4 10 ^3/uL (1.6-8.6); Neutrophils % (auto) 83.6 % (37.0-80.0); Red Blood Cells 4.25 10^6/uL (4.0-5.20); Red Cell Distribution Width 14.3 % (11.8-14.3); White Blood Cell 19.7 10^3/uL (4.4-10.8)
[2022-11-04 06:51] LABS: Alanine Aminotransferase 14 U/L (7-40); Alkaline Phosphatase 152 U/L (46-116); Anion Gap 13.9 (5-15); Aspartate Aminotransferase 14 U/L (13-40); Calcium 7.8 mg/dL (8.7-10.4); Carbon Dioxide 15.1 mmol/L (20-30); Chloride 104 mmol/L (98-107); Potassium 3.7 mmol/L (3.5-5.1); Sodium 133 mmol/L (136-145)
[2022-11-04 06:52] LABS: Glucose 88 mg/dL (74-106); Magnesium 1.8 mg/dL (1.6-2.6)
[2022-11-04 06:54] LABS: Bilirubin, Total 0.6 mg/dL (0.2-1.0); Total Protein 5.4 g/dL (5.7-8.2)
[2022-11-04 08:27] LABS: BUN/Creatinine Ratio 27.9 (10.0-20.0); Blood Urea Nitrogen 31 mg/dL (9-23)
[2022-11-04] MEDS: PANTOPRAZOLE 40 MG TAB PO SCH (08:31)
[2022-11-04] MEDS: HEPARIN SODIUM (PORCINE) 5000 UNITS/ML 1ML VIAL SC SCH ×2 (08:34→21:34)
[2022-11-04 09:00] VITALS: BP 148/108; PULSE 77; RESP 20; O2SAT 98
[2022-11-04] MEDS ORDERED: cefTRIAXone 1GM/50ML D5W 50 ML IV SCH (09:00)
[2022-11-04] MEDS ORDERED: cefTRIAXone 1GM/50ML D5W 50 ML IV ONE (10:00)
[2022-11-04] MEDS ORDERED: ALPRAZolam 0.25 MG TAB PO PRN (10:00)
[2022-11-04] MEDS: METOPROLOL TARTRATE 25 MG TAB PO SCH ×2 (10:12→21:30)
[2022-11-04] MEDS: ISOSORBIDE MONONITRATE ER 60 MG TAB PO SCH (10:13)
[2022-11-04] MEDS: SODIUM CHLORIDE 0.9% 1,000 ML IV SCH ×3 (10:14→23:37)
[2022-11-04 13:18] VITALS: BP 138/72; PULSE 69; RESP 18; TEMP 98.2; O2SAT 97
[2022-11-04] MEDS: hydrALAZINE HCL 25 MG TAB PO SCH ×2 (14:48→21:31)
[2022-11-04 17:00] VITALS: BP 147/68; PULSE 68; RESP 16; TEMP 98.3; O2SAT 96
[2022-11-04 20:00] VITALS: BP 147/78; PULSE 76; RESP 18
[2022-11-04 22:00] VITALS: BP 147/78; PULSE 77; RESP 18; TEMP 99; O2SAT 97
[2022-11-05] VITALS (7 sets, daily range): BP systolic 135–177; BP diastolic 71–83; PULSE 70–87; RESP 16–22; TEMP 97.7–98.3; O2SAT 95–98
[2022-11-05] MEDS: hydrALAZINE HCL 25 MG TAB PO SCH ×3 (05:12→21:03)
[2022-11-05] MEDS: SUCRALFATE 1 GM/10 ML ORAL SUSP PO SCH ×4 (06:03→21:02)
[2022-11-05] MEDS: ACETAMINOPHEN 325 MG TAB PO PRN ×3 (06:04→14:15)
[2022-11-05] MEDS: ACCU-CHEK COMFORT CURVE STRIP VI SCH ×4 (06:04→21:29)
[2022-11-05] MEDS: InsuLIN REG 1unit/0.01ml Soln (100units/ml) SC SCH ×4 (06:11→21:25)
[2022-11-05 06:49] LABS: Anion Gap 11.3 (5-15); Carbon Dioxide 15.7 mmol/L (20-30); Chloride 107 mmol/L (98-107); Potassium 3.5 mmol/L (3.5-5.1); Sodium 134 mmol/L (136-145)
[2022-11-05 06:50] LABS: Calcium 8.3 mg/dL (8.7-10.4)
[2022-11-05 06:55] LABS: BUN/Creatinine Ratio 22.7 (10.0-20.0); Blood Urea Nitrogen 22 mg/dL (9-23); Glucose 171 mg/dL (74-106)
[2022-11-05 07:17] LABS: Basophils # (auto) 0 10 ^3/uL (0-0.2); Basophils % (auto) 0.3 % (0.0-2.0); Eosinophils # (auto) 0.1 10 ^3/uL (0-0.8); Eosinophils % (auto) 0.8 % (0.0-7.0); Hematocrit 36.5 % (36.0-46.0); Hemoglobin 11.7 g/dL (12.2-16.2); Lymphocytes # (auto) 1.2 10 ^3/uL (0.4-5.4); Lymphocytes % (auto) 6.8 % (10.0-50.0); Mean Corpuscular Hemoglobin 29.6 pg (28.0-32.0); Mean Corpuscular Volume 92.6 fL (80.0-100.0); Monocytes % (auto) 11.6 % (0.0-12.0); Neutrophils % (auto) 80.5 % (37.0-80.0); Red Blood Cells 3.94 10^6/uL (4.0-5.20); Red Cell Distribution Width 14.6 % (11.8-14.3); White Blood Cell 17.4 10^3/uL (4.4-10.8)
[2022-11-05] MEDS ORDERED: FUROSEMIDE 40 MG/4 ML VIAL IV ONE (08:15)
[2022-11-05] MEDS: cefTRIAXone 1GM/50ML D5W 50 ML IV SCH (08:37)
[2022-11-05] MEDS: ISOSORBIDE MONONITRATE ER 60 MG TAB PO SCH (10:27)
[2022-11-05] MEDS: METOPROLOL TARTRATE 25 MG TAB PO SCH ×2 (10:27→21:04)
[2022-11-05] MEDS: CITALOPRAM HYDROBR 20 MG TAB PO SCH (10:27)
[2022-11-05] MEDS: PANTOPRAZOLE 40 MG TAB PO SCH (10:27)
[2022-11-05] MEDS: HEPARIN SODIUM (PORCINE) 5000 UNITS/ML 1ML VIAL SC SCH ×2 (10:27→21:07)
[2022-11-05] MEDS: SODIUM CHLORIDE 0.9% 1,000 ML IV SCH (12:40)
[2022-11-05] MEDS ORDERED: HYDROcodone-ACET 5/325MG TAB PO ONE (19:00)
[2022-11-06] VITALS (8 sets, daily range): BP systolic 143–185; BP diastolic 59–85; PULSE 67–87; RESP 17–22; TEMP 97.7–98.4; O2SAT 96–98
[2022-11-06] MEDS: SODIUM CHLORIDE 0.9% 1,000 ML IV SCH ×2 (03:41→15:20)
[2022-11-06] MEDS: ACETAMINOPHEN 325 MG TAB PO PRN (03:41)
[2022-11-06 06:11] LABS: Chloride 108 mmol/L (98-107); Potassium 3.2 mmol/L (3.5-5.1); Sodium 137 mmol/L (136-145)
[2022-11-06 06:12] LABS: Anion Gap 11.8 (5-15); Calcium 8.2 mg/dL (8.5-10.1); Carbon Dioxide 17.2 mmol/L (20-30)
[2022-11-06] MEDS: SUCRALFATE 1 GM/10 ML ORAL SUSP PO SCH ×4 (06:14→21:13)
[2022-11-06] MEDS: InsuLIN REG 1unit/0.01ml Soln (100units/ml) SC SCH ×4 (06:14→21:34)
[2022-11-06 06:15] LABS: Hematocrit 36.6 % (36.0-46.0); Hemoglobin 12.1 g/dL (12.2-16.2); Mean Corpuscular Hemoglobin 29.9 pg (28.0-32.0); Mean Corpuscular Hgb Conc. 33.2 g/dL (32.0-36.0); Mean Corpuscular Volume 90.2 fL (80.0-100.0); Red Blood Cells 4.06 10^6/uL (4.0-5.20); Red Cell Distribution Width 14.4 % (11.8-14.3); White Blood Cell 16.8 10^3/uL (4.4-10.8)
[2022-11-06] MEDS: ACCU-CHEK COMFORT CURVE STRIP VI SCH ×4 (06:16→21:14)
[2022-11-06 06:17] LABS: BUN/Creatinine Ratio 22.6 (10.0-20.0); Blood Urea Nitrogen 19 mg/dL (9-23); Glucose 177 mg/dL (74-106)
[2022-11-06] MEDS: hydrALAZINE HCL 25 MG TAB PO SCH ×3 (06:25→21:16)
[2022-11-06 07:01] LABS: Basophils % (manual) 0 (0.0-2.0); Blast Cells 0; Myelocytes % 0; Promyelocytes % 0; Reactive Lymphocytes 0
[2022-11-06] MEDS: PANTOPRAZOLE 40 MG TAB PO SCH (09:11)
[2022-11-06] MEDS: METOPROLOL TARTRATE 25 MG TAB PO SCH ×2 (09:12→21:17)
[2022-11-06] MEDS: CITALOPRAM HYDROBR 20 MG TAB PO SCH (09:13)
[2022-11-06] MEDS: cefTRIAXone 1GM/50ML D5W 50 ML IV SCH (09:13)
[2022-11-06] MEDS: ISOSORBIDE MONONITRATE ER 60 MG TAB PO SCH (09:13)
[2022-11-06] MEDS: HEPARIN SODIUM (PORCINE) 5000 UNITS/ML 1ML VIAL SC SCH ×2 (09:22→21:17)
[2022-11-06 10:39] LABS: Band Neutrophils % (manual) 7; Eosinophils % (manual) 2 (0-7); Lymphocytes % (manual) 10 (10.0-50.0); Metamyelocytes % 4; Monocytes % (manual) 10 (0-12)
[2022-11-06 10:40] LABS: Platelet Estimate Adequate
[2022-11-06] MEDS ORDERED: POTASSIUM CHL 20 Meq TABLET PO ONE (11:15)
[2022-11-06] MEDS: TEMAZEPAM 15 MG CAP PO PRN (21:35)
[2022-11-07] MEDS: SODIUM CHLORIDE 0.9% 1,000 ML IV SCH (04:40)
[2022-11-07 05:00] VITALS: BP 153/70; PULSE 78; RESP 18; TEMP 98.5; O2SAT 98
[2022-11-07] MEDS: hydrALAZINE HCL 20 MG/ML VL IV PRN ×2 (05:32→09:46)
[2022-11-07] MEDS: SUCRALFATE 1 GM/10 ML ORAL SUSP PO SCH ×4 (06:26→21:34)
[2022-11-07] MEDS: hydrALAZINE HCL 25 MG TAB PO SCH ×3 (06:26→21:34)
[2022-11-07] MEDS: ACCU-CHEK COMFORT CURVE STRIP VI SCH ×4 (06:31→21:34)
[2022-11-07] MEDS: InsuLIN REG 1unit/0.01ml Soln (100units/ml) SC SCH ×4 (06:35→21:48)
[2022-11-07 07:37] LABS: Basophils # (auto) 0.1 10 ^3/uL (0-0.2); Basophils % (auto) 0.6 % (0.0-2.0); Eosinophils # (auto) 0.1 10 ^3/uL (0-0.8); Eosinophils % (auto) 0.8 % (0.0-7.0); Hematocrit 37.9 % (36.0-46.0); Hemoglobin 12.6 g/dL (12.2-16.2); Lymphocytes # (auto) 1.6 10 ^3/uL (0.4-5.4); Lymphocytes % (auto) 10.4 % (10.0-50.0); Mean Corpuscular Hemoglobin 29.9 pg (28.0-32.0); Mean Corpuscular Hgb Conc. 33.4 g/dL (32.0-36.0); Mean Corpuscular Volume 89.5 fL (80.0-100.0); Monocytes # (auto) 0.8 10 ^3/uL (0-1.3); Monocytes % (auto) 5.4 % (0.0-12.0); Neutrophils # (auto) 12.8 10 ^3/uL (1.6-8.6); Neutrophils % (auto) 82.8 % (37.0-80.0); Red Blood Cells 4.23 10^6/uL (4.0-5.20); Red Cell Distribution Width 14.4 % (11.8-14.3); White Blood Cell 15.4 10^3/uL (4.4-10.8)
[2022-11-07 08:35] LABS: Chloride 109 mmol/L (98-107); Potassium 4.3 mmol/L (3.5-5.1); Sodium 138 mmol/L (136-145)
[2022-11-07 08:36] LABS: Anion Gap 9.5 (5-15); Calcium 8.6 mg/dL (8.5-10.1); Carbon Dioxide 19.5 mmol/L (20-30)
[2022-11-07 08:41] LABS: BUN/Creatinine Ratio 18.8 (10.0-20.0); Blood Urea Nitrogen 13 mg/dL (9-23); Glucose 152 mg/dL (74-106)
[2022-11-07 08:42] LABS: Magnesium 1.8 mg/dL (1.6-2.6)
[2022-11-07 09:00] VITALS: BP 183/86; PULSE 78; RESP 18; TEMP 98.4; O2SAT 95
[2022-11-07] MEDS: cefTRIAXone 1GM/50ML D5W 50 ML IV SCH (09:45)
[2022-11-07] MEDS: METOPROLOL TARTRATE 25 MG TAB PO SCH ×2 (09:46→21:34)
[2022-11-07] MEDS: PANTOPRAZOLE 40 MG TAB PO SCH (09:46)
[2022-11-07] MEDS: CITALOPRAM HYDROBR 20 MG TAB PO SCH (09:46)
[2022-11-07] MEDS: ISOSORBIDE MONONITRATE ER 60 MG TAB PO SCH (09:46)
[2022-11-07] MEDS: HEPARIN SODIUM (PORCINE) 5000 UNITS/ML 1ML VIAL SC SCH ×2 (10:01→21:45)
[2022-11-07] MEDS ORDERED: LISINOPRIL 20 MG TAB PO ONE (11:45)
[2022-11-07] MEDS: ACETAMINOPHEN 325 MG TAB PO PRN ×2 (12:57→21:33)
[2022-11-07 13:00] VITALS: BP 145/68; PULSE 70; RESP 18; TEMP 98.2; O2SAT 96
[2022-11-07 17:00] VITALS: BP 133/52; PULSE 68; RESP 18; TEMP 98.3; O2SAT 97
[2022-11-07 20:00] VITALS: RESP 18; O2SAT 98
[2022-11-07 22:00] VITALS: BP 156/71; PULSE 80; RESP 17; TEMP 98.7; O2SAT 96
[2022-11-07] MEDS: TEMAZEPAM 15 MG CAP PO PRN (22:19)
[2022-11-08 05:00] VITALS: BP 161/76; PULSE 64; RESP 18; TEMP 98.4; O2SAT 97
[2022-11-08] MEDS: hydrALAZINE HCL 25 MG TAB PO SCH ×3 (06:20→21:14)
[2022-11-08] MEDS: SUCRALFATE 1 GM/10 ML ORAL SUSP PO SCH ×4 (06:20→21:14)
[2022-11-08] MEDS: ACCU-CHEK COMFORT CURVE STRIP VI SCH ×4 (06:20→21:14)
[2022-11-08] MEDS: InsuLIN REG 1unit/0.01ml Soln (100units/ml) SC SCH ×4 (06:30→21:19)
[2022-11-08 08:48] LABS: Basophils # (auto) 0.1 10 ^3/uL (0-0.2); Basophils % (auto) 0.5 % (0.0-2.0); Eosinophils # (auto) 0.2 10 ^3/uL (0-0.8); Hematocrit 35.1 % (36.0-46.0); Hemoglobin 11.7 g/dL (12.2-16.2); Neutrophils # (auto) 15.2 10 ^3/uL (1.6-8.6); Red Blood Cells 3.93 10^6/uL (4.0-5.20)
[2022-11-08 08:51] LABS: Eosinophils % (auto) 0.9 % (0.0-7.0); Lymphocytes # (auto) 1.7 10 ^3/uL (0.4-5.4); Lymphocytes % (auto) 9.3 % (10.0-50.0); Mean Corpuscular Hemoglobin 29.7 pg (28.0-32.0); Mean Corpuscular Hgb Conc. 33.3 g/dL (32.0-36.0); Mean Corpuscular Volume 89.3 fL (80.0-100.0); Monocytes # (auto) 0.9 10 ^3/uL (0-1.3); Neutrophils % (auto) 84.3 % (37.0-80.0); Red Cell Distribution Width 14.3 % (11.8-14.3)
[2022-11-08 08:54] LABS: Chloride 106 mmol/L (98-107); Sodium 136 mmol/L (136-145)
[2022-11-08 08:55] LABS: Calcium 8.4 mg/dL (8.5-10.1)
[2022-11-08 09:00] VITALS: BP 159/68; PULSE 78; RESP 16; TEMP 98.6; O2SAT 99
[2022-11-08 09:00] LABS: BUN/Creatinine Ratio 20.6 (10.0-20.0); Blood Urea Nitrogen 13 mg/dL (9-23); Glucose 165 mg/dL (74-106)
[2022-11-08] MEDS: HEPARIN SODIUM (PORCINE) 5000 UNITS/ML 1ML VIAL SC SCH ×2 (09:00→21:25)
[2022-11-08] MEDS: cefTRIAXone 1GM/50ML D5W 50 ML IV SCH (09:05)
[2022-11-08] MEDS: METOPROLOL TARTRATE 25 MG TAB PO SCH ×2 (09:05→21:14)
[2022-11-08] MEDS: PANTOPRAZOLE 40 MG TAB PO SCH (09:05)
[2022-11-08] MEDS: LISINOPRIL 20 MG TAB PO SCH (09:06)
[2022-11-08] MEDS: ISOSORBIDE MONONITRATE ER 60 MG TAB PO SCH (09:06)
[2022-11-08] MEDS: CITALOPRAM HYDROBR 20 MG TAB PO SCH (09:06)
[2022-11-08] MEDS: ACETAMINOPHEN 325 MG TAB PO PRN (09:56)
[2022-11-08] MEDS: hydrALAZINE HCL 20 MG/ML VL IV PRN (10:32)
[2022-11-08] MEDS ORDERED: amLODIPine BESYLATE 5 MG TAB PO ONE (11:30)
[2022-11-08 13:00] VITALS: BP 105/43; PULSE 63; RESP 18; TEMP 98.3; O2SAT 98
[2022-11-08 17:00] VITALS: BP 119/51; PULSE 69; RESP 17; TEMP 98; O2SAT 99
[2022-11-08 19:04] LABS: Urine Bacteria NONE SEEN /hpf (None Seen); Urine Blood 2+ /uL (Negative); Urine Budding Yeast LOADED /hpf (None Seen); Urine Clarity HAZY (Clear); Urine Color Yellow (Yellow); Urine Mucus FEW (None Seen); Urine Protein, UAD 1+ (Negative); Urine Urobilinogen Normal (Negative); Urine WBC 142 /hpf (0 - 5); Urine pH 5.5 (5.0-8.0)
[2022-11-08 20:00] VITALS: RESP 18; O2SAT 98
[2022-11-08 22:00] VITALS: BP 148/77; PULSE 75; RESP 18; TEMP 98.3; O2SAT 95
[2022-11-08] MEDS: TEMAZEPAM 15 MG CAP PO PRN (22:28)
[2022-11-09 05:00] VITALS: BP 178/83; PULSE 67; RESP 17; TEMP 98.9; O2SAT 95
[2022-11-09] MEDS: hydrALAZINE HCL 25 MG TAB PO SCH ×3 (06:05→21:47)
[2022-11-09] MEDS: SUCRALFATE 1 GM/10 ML ORAL SUSP PO SCH ×4 (06:05→21:48)
[2022-11-09] MEDS: ACCU-CHEK COMFORT CURVE STRIP VI SCH ×4 (06:06→22:00)
[2022-11-09] MEDS: InsuLIN REG 1unit/0.01ml Soln (100units/ml) SC SCH ×4 (06:10→21:44)
[2022-11-09 07:23] LABS: Basophils # (auto) 0.1 10 ^3/uL (0-0.2); Basophils % (auto) 0.6 % (0.0-2.0); Lymphocytes # (auto) 1.9 10 ^3/uL (0.4-5.4)
[2022-11-09 07:28] LABS: Eosinophils # (auto) 0.2 10 ^3/uL (0-0.8); Hematocrit 32.3 % (36.0-46.0); Lymphocytes % (auto) 11.2 % (10.0-50.0); Mean Corpuscular Hemoglobin 30.2 pg (28.0-32.0); Mean Corpuscular Hgb Conc. 34.1 g/dL (32.0-36.0); Mean Corpuscular Volume 88.6 fL (80.0-100.0); Monocytes # (auto) 0.9 10 ^3/uL (0-1.3); Monocytes % (auto) 5.3 % (0.0-12.0); Neutrophils # (auto) 13.6 10 ^3/uL (1.6-8.6); Neutrophils % (auto) 81.9 % (37.0-80.0); Nucleated Red Blood Cells % 0.1 %; Red Blood Cells 3.65 10^6/uL (4.0-5.20); Red Cell Distribution Width 14.3 % (11.8-14.3); White Blood Cell 16.6 10^3/uL (4.4-10.8)
[2022-11-09 09:00] VITALS: BP 155/75; PULSE 78; RESP 18; TEMP 97.6; O2SAT 96
[2022-11-09] MEDS: PANTOPRAZOLE 40 MG TAB PO SCH (09:16)
[2022-11-09] MEDS: cefTRIAXone 1GM/50ML D5W 50 ML IV SCH (09:16)
[2022-11-09] MEDS: METOPROLOL TARTRATE 25 MG TAB PO SCH ×2 (09:16→21:48)
[2022-11-09] MEDS: LISINOPRIL 20 MG TAB PO SCH (09:17)
[2022-11-09] MEDS: ISOSORBIDE MONONITRATE ER 60 MG TAB PO SCH (09:17)
[2022-11-09] MEDS: CITALOPRAM HYDROBR 20 MG TAB PO SCH (09:17)
[2022-11-09] MEDS: amLODIPine BESYLATE 5 MG TAB PO SCH (09:17)
[2022-11-09] MEDS: HEPARIN SODIUM (PORCINE) 5000 UNITS/ML 1ML VIAL SC SCH ×2 (09:25→22:30)
[2022-11-09 13:00] VITALS: BP 113/60; PULSE 66; RESP 18; TEMP 97.3; O2SAT 95
[2022-11-09 17:00] VITALS: BP 144/71; PULSE 69; RESP 19; TEMP 97.6; O2SAT 96
[2022-11-09 20:00] VITALS: PULSE 75
[2022-11-09] MEDS: TEMAZEPAM 15 MG CAP PO PRN (21:48)
[2022-11-09 21:57] VITALS: BP 153/78; PULSE 75; RESP 17; TEMP 98.5; O2SAT 96
[2022-11-10] MEDS: ACETAMINOPHEN 325 MG TAB PO PRN ×2 (04:38→14:42)
[2022-11-10 05:00] VITALS: BP 153/74; PULSE 73; RESP 17; TEMP 98.9; O2SAT 94
[2022-11-10 05:40] LABS: Eosinophils # (auto) 0.1 10 ^3/uL (0-0.8); Eosinophils % (auto) 0.8 % (0.0-7.0); Hematocrit 32.6 % (36.0-46.0); Lymphocytes # (auto) 1.9 10 ^3/uL (0.4-5.4); White Blood Cell 15.5 10^3/uL (4.4-10.8)
[2022-11-10 05:43] LABS: Basophils # (auto) 0 10 ^3/uL (0-0.2); Basophils % (auto) 0.2 % (0.0-2.0); Hemoglobin 11.2 g/dL (12.2-16.2); Lymphocytes % (auto) 12.2 % (10.0-50.0); Mean Corpuscular Hemoglobin 30.5 pg (28.0-32.0); Mean Corpuscular Hgb Conc. 34.3 g/dL (32.0-36.0); Monocytes % (auto) 6.2 % (0.0-12.0); Neutrophils # (auto) 12.5 10 ^3/uL (1.6-8.6); Neutrophils % (auto) 80.6 % (37.0-80.0); Red Blood Cells 3.66 10^6/uL (4.0-5.20); Red Cell Distribution Width 14.2 % (11.8-14.3)
[2022-11-10 05:56] LABS: Calcium 8.2 mg/dL (8.7-10.4); Chloride 105 mmol/L (98-107); Potassium 3.6 mmol/L (3.5-5.1); Sodium 136 mmol/L (136-145)
[2022-11-10 05:57] LABS: Anion Gap 8.4 (5-15); Carbon Dioxide 22.6 mmol/L (20-30)
[2022-11-10 06:02] LABS: Blood Urea Nitrogen 9 mg/dL (9-23); Glucose 139 mg/dL (74-106); Magnesium 1.6 mg/dL (1.6-2.6)
[2022-11-10] MEDS: InsuLIN REG 1unit/0.01ml Soln (100units/ml) SC SCH ×4 (06:03→21:46)
[2022-11-10] MEDS: SUCRALFATE 1 GM/10 ML ORAL SUSP PO SCH ×4 (06:10→21:50)
[2022-11-10] MEDS: hydrALAZINE HCL 25 MG TAB PO SCH ×3 (06:10→21:51)
[2022-11-10] MEDS: ACCU-CHEK COMFORT CURVE STRIP VI SCH ×4 (07:00→22:00)
[2022-11-10 08:00] VITALS: PULSE 75; RESP 18
[2022-11-10] MEDS: cefTRIAXone 1GM/50ML D5W 50 ML IV SCH (08:50)
[2022-11-10] MEDS: ISOSORBIDE MONONITRATE ER 60 MG TAB PO SCH (10:00)
[2022-11-10] MEDS: LISINOPRIL 20 MG TAB PO SCH (10:00)
[2022-11-10] MEDS: CITALOPRAM HYDROBR 20 MG TAB PO SCH (10:00)
[2022-11-10] MEDS: METOPROLOL TARTRATE 25 MG TAB PO SCH ×2 (10:00→21:50)
[2022-11-10] MEDS: amLODIPine BESYLATE 5 MG TAB PO SCH (10:00)
[2022-11-10] MEDS: FLUCONAZOLE 200MG/100ML 100 ML IV SCH (10:00)
[2022-11-10] MEDS: PANTOPRAZOLE 40 MG TAB PO SCH (10:00)
[2022-11-10] MEDS: HEPARIN SODIUM (PORCINE) 5000 UNITS/ML 1ML VIAL SC SCH ×2 (10:41→22:00)
[2022-11-10 16:54] VITALS: BP 124/64; PULSE 65; RESP 16; TEMP 98.4; O2SAT 97
[2022-11-10 20:00] VITALS: PULSE 67; RESP 18
[2022-11-10] MEDS: TEMAZEPAM 15 MG CAP PO PRN (21:51)
[2022-11-10 22:00] VITALS: BP 148/70; PULSE 69; RESP 16; TEMP 98.2; O2SAT 97
[2022-11-11] VITALS (8 sets, daily range): BP systolic 122–166; BP diastolic 59–78; PULSE 60–99; RESP 16–20; TEMP 96.8–98.7; O2SAT 94–100
[2022-11-11 05:57] LABS: Calcium 8.4 mg/dL (8.5-10.1); Chloride 104 mmol/L (98-107); Potassium 3.8 mmol/L (3.5-5.1); Sodium 136 mmol/L (136-145)
[2022-11-11 05:58] LABS: Anion Gap 8.4 (5-15); Basophils # (auto) 0.1 10 ^3/uL (0-0.2); Basophils % (auto) 0.4 % (0.0-2.0); Carbon Dioxide 23.6 mmol/L (20-30); Eosinophils # (auto) 0.2 10 ^3/uL (0-0.8); Hemoglobin 10.9 g/dL (12.2-16.2)
[2022-11-11 06:03] LABS: BUN/Creatinine Ratio 11.7 (10.0-20.0); Blood Urea Nitrogen 7 mg/dL (9-23); Glucose 125 mg/dL (74-106)
[2022-11-11 06:04] LABS: Hematocrit 32.1 % (36.0-46.0); Lymphocytes # (auto) 1.9 10 ^3/uL (0.4-5.4); Lymphocytes % (auto) 12.5 % (10.0-50.0); Mean Corpuscular Hemoglobin 30.1 pg (28.0-32.0); Mean Corpuscular Hgb Conc. 33.9 g/dL (32.0-36.0); Mean Corpuscular Volume 88.9 fL (80.0-100.0); Monocytes % (auto) 6.2 % (0.0-12.0); Neutrophils # (auto) 12.3 10 ^3/uL (1.6-8.6); Neutrophils % (auto) 79.9 % (37.0-80.0); Red Blood Cells 3.61 10^6/uL (4.0-5.20); Red Cell Distribution Width 14.3 % (11.8-14.3); White Blood Cell 15.4 10^3/uL (4.4-10.8)
[2022-11-11] MEDS: hydrALAZINE HCL 25 MG TAB PO SCH ×3 (06:22→15:00)
[2022-11-11] MEDS: SUCRALFATE 1 GM/10 ML ORAL SUSP PO SCH ×4 (06:23→22:09)
[2022-11-11] MEDS: InsuLIN REG 1unit/0.01ml Soln (100units/ml) SC SCH ×4 (06:27→22:16)
[2022-11-11] MEDS: ACCU-CHEK COMFORT CURVE STRIP VI SCH ×4 (06:48→22:10)
[2022-11-11] MEDS: cefTRIAXone 1GM/50ML D5W 50 ML IV SCH (08:35)
[2022-11-11] MEDS: FLUCONAZOLE 200MG/100ML 100 ML IV SCH (09:59)
[2022-11-11] MEDS: PANTOPRAZOLE 40 MG TAB PO SCH (10:03)
[2022-11-11] MEDS: METOPROLOL TARTRATE 25 MG TAB PO SCH ×2 (10:03→22:10)
[2022-11-11] MEDS: ISOSORBIDE MONONITRATE ER 60 MG TAB PO SCH (10:05)
[2022-11-11] MEDS: LISINOPRIL 20 MG TAB PO SCH (10:06)
[2022-11-11] MEDS: CITALOPRAM HYDROBR 20 MG TAB PO SCH (10:07)
[2022-11-11] MEDS: amLODIPine BESYLATE 5 MG TAB PO SCH (10:07)
[2022-11-11] MEDS: HEPARIN SODIUM (PORCINE) 5000 UNITS/ML 1ML VIAL SC SCH ×2 (10:25→22:15)
[2022-11-11] MEDS ORDERED: amLODIPine BESYLATE 5 MG TAB PO ONE (11:30)
[2022-11-11] MEDS: TEMAZEPAM 15 MG CAP PO PRN (22:09)
[2022-11-12 05:00] VITALS: BP 153/78; PULSE 68; RESP 18; TEMP 98.2; O2SAT 98
[2022-11-12] MEDS: ACETAMINOPHEN 325 MG TAB PO PRN ×2 (05:18→21:53)
[2022-11-12] MEDS: hydrALAZINE HCL 25 MG TAB PO SCH ×3 (05:19→22:19)
[2022-11-12] MEDS: ACCU-CHEK COMFORT CURVE STRIP VI SCH ×4 (06:36→21:52)
[2022-11-12] MEDS: SUCRALFATE 1 GM/10 ML ORAL SUSP PO SCH ×4 (06:36→22:18)
[2022-11-12] MEDS: InsuLIN REG 1unit/0.01ml Soln (100units/ml) SC SCH ×4 (06:37→22:27)
[2022-11-12 09:00] VITALS: BP 114/47; PULSE 67; RESP 20; TEMP 97.8; O2SAT 96
[2022-11-12] MEDS: cefTRIAXone 1GM/50ML D5W 50 ML IV SCH (10:33)
[2022-11-12] MEDS: PANTOPRAZOLE 40 MG TAB PO SCH (10:33)
[2022-11-12] MEDS: FLUCONAZOLE 100 MG TAB PO SCH (10:34)
[2022-11-12] MEDS: ISOSORBIDE MONONITRATE ER 60 MG TAB PO SCH (10:37)
[2022-11-12] MEDS: CITALOPRAM HYDROBR 20 MG TAB PO SCH (10:38)
[2022-11-12] MEDS: METOPROLOL TARTRATE 25 MG TAB PO SCH ×2 (10:38→22:19)
[2022-11-12] MEDS: LISINOPRIL 20 MG TAB PO SCH (10:39)
[2022-11-12] MEDS: amLODIPine BESYLATE 5 MG TAB PO SCH (10:40)
[2022-11-12] MEDS: HEPARIN SODIUM (PORCINE) 5000 UNITS/ML 1ML VIAL SC SCH ×2 (10:52→22:28)
[2022-11-12 17:22] VITALS: BP 142/64; PULSE 70; RESP 18; TEMP 97.9; O2SAT 95
[2022-11-12 17:23] VITALS: BP 128/64; PULSE 65; RESP 20; TEMP 98.2; O2SAT 95
[2022-11-12 20:15] VITALS: PULSE 60; RESP 16; O2SAT 96
[2022-11-12 21:46] VITALS: BP 137/64; PULSE 60; RESP 16; TEMP 97.8; O2SAT 97
[2022-11-12] MEDS ORDERED: HEPARIN SODIUM (PORCINE) 5000 UNITS/ML 1ML VIAL ONE (22:03)
[2022-11-12] MEDS: TEMAZEPAM 15 MG CAP PO PRN (22:18)
[2022-11-13 04:39] VITALS: BP 130/57; PULSE 62; TEMP 97.6; O2SAT 95
[2022-11-13] MEDS: InsuLIN REG 1unit/0.01ml Soln (100units/ml) SC SCH ×2 (06:15→12:25)
[2022-11-13] MEDS: ACCU-CHEK COMFORT CURVE STRIP VI SCH ×2 (06:15→12:21)
[2022-11-13] MEDS: hydrALAZINE HCL 25 MG TAB PO SCH ×2 (06:16→13:14)
[2022-11-13] MEDS: SUCRALFATE 1 GM/10 ML ORAL SUSP PO SCH ×2 (06:20→12:21)
[2022-11-13 09:00] VITALS: BP 156/97; PULSE 67; RESP 17; TEMP 98.2; O2SAT 97
[2022-11-13] MEDS ORDERED: AML5T PO (09:45)
[2022-11-13] MEDS ORDERED: CITA10TA8 PO (09:45)
[2022-11-13] MEDS ORDERED: FLUC200T PO (09:45)
[2022-11-13] MEDS: cefTRIAXone 1GM/50ML D5W 50 ML IV SCH (10:11)
[2022-11-13] MEDS: PANTOPRAZOLE 40 MG TAB PO SCH (10:12)
[2022-11-13] MEDS: ISOSORBIDE MONONITRATE ER 60 MG TAB PO SCH (10:13)
[2022-11-13] MEDS: amLODIPine BESYLATE 5 MG TAB PO SCH (10:13)
[2022-11-13] MEDS: FLUCONAZOLE 100 MG TAB PO SCH (10:14)
[2022-11-13] MEDS: CITALOPRAM HYDROBR 20 MG TAB PO SCH (10:14)
[2022-11-13] MEDS: LISINOPRIL 20 MG TAB PO SCH (10:14)
[2022-11-13] MEDS: METOPROLOL TARTRATE 25 MG TAB PO SCH (10:14)
[2022-11-13] MEDS: HEPARIN SODIUM (PORCINE) 5000 UNITS/ML 1ML VIAL SC SCH (10:19)
[2022-11-13 13:00] VITALS: BP 96/60; PULSE 61; RESP 18; TEMP 98.4; O2SAT 96
[2022-11-13 13:44] VITALS: BP 96/60; PULSE 61; RESP 18; TEMP 98.4; O2SAT 96
== END 2022-11-13 14:50 | disposition home or self-care (01) | DRG 872 ==
LOC: ER 11:14 → OVERFLOW 13:43 → EAST 11-03 10:33
PROVIDERS: ADMIT Nurse Practitioner Family; ATTEND Internal Medicine Geriatric Medicine
DX: A41.51 Sepsis due to Escherichia coli [E. coli] (principal); N17.9 Acute kidney failure, unspecified; E87.1 Hypo-osmolality and hyponatremia; E87.20 Acidosis, unspecified; N13.6 Pyonephrosis; B37.49 Other urogenital candidiasis; R45.851 Suicidal ideations; B19.20 Unspecified viral hepatitis C without hepatic coma; E03.9 Hypothyroidism, unspecified; E86.9 Volume depletion, unspecified; E87.6 Hypokalemia; F17.210 Nicotine dependence, cigarettes, uncomplicated; D64.9 Anemia, unspecified; R79.89 Other specified abnormal findings of blood chemistry; Z20.822 Contact with and (suspected) exposure to COVID-19; E11.22 Type 2 diabetes mellitus with diabetic chronic kidney disease; N18.9 Chronic kidney disease, unspecified; I12.9 Hypertensive chronic kidney disease with stage 1 through stage 4 chronic kidney disease, or unspecified chronic kidney disease; F32.A Depression, unspecified; Z91.410 Personal history of adult physical and sexual abuse; Z87.11 Personal history of peptic ulcer disease; Z91.411 Personal history of adult psychological abuse; Z79.899 Other long term (current) drug therapy
CPT/HCPCS: 36415; 70450; 71045; 74176; 76775; 78707; 80048; 80053; 80202; 81001; 82962; 83036; 83605; 83690; 83735; 83880; 84484; 85007; 85025; 85027; 87040; 87077; 87086; 87088; 87186; 87426; 93005; 96361; 96374; 97110; 97116; 97163; 97530; G0378; J0696; J1450; J1815; J2543

== ENCOUNTER 2024-03-04 05:34 | Inpatient (IN) | payer BC, OTHER ==
[2024-03-03 16:42] VITALS: BP 129/82; PULSE 75; RESP 18; TEMP 98; O2SAT 90
[~2024-03-04] VITALS: Ht 154.9 cm; Wt 59.9 kg
[~2024-03-04 05:34] MED LIST changes: +AML5T PO; +CITA10TA8 PO; +CLON0.1T PO; +FLUC200T PO; +ISOS1TAB29 PO; +LISI20TA56 PO; -LISI40TA16; +LISI40TA16 PO; +METO25TA5 PO; +NIFE1TAB31 PO
--- NOTE | 2024-03-04 06:29 | ED.PDOC ---
History of Present Illness HPI Comments 63 year old female presents to the ED with chief complaint of flu-like illness. Patient reports that she has been experiencing a cough with associated symptoms of headache, fever, N/V/D, and poor appetite for the past 5 days. Patient denies any sick contacts at home at this time. Patient denies any abdominal pain, dizziness, chest pain, SOB, dysuria, or hematemesis. Chief Complaint: Flu like Time Seen by MD: 06:17 Primary Care Provider: Janel Carreon Notes: Nurses Notes, Medications, Allergies Allergies: Coded Allergies: NO KNOWN ALLERGIES (Unverified , 02/19/21) Home Meds Active Scripts Nifedipine (Nifedipine Er) 30 Mg Tab, 1 TAB PO DAILY for 30 Days, #30 TAB 5 Refills Prov:SANDRINE ISAACSMY Thomas ESPINOSA 06/20/23 Lisinopril (Lisinopril) 20 Mg Tab, 2 TAB PO DAILY for 30 Days, #60 TAB 5 Refills Prov:GLORIA ISAACS DO 06/20/23 Metoprolol Tartrate (Lopressor) 25 Mg Tb, 25 MG PO BID for 30 Days, #60 TAB 6 Refills Prov:SANDRINE ISAACSMY Thomas ESPINOSA 06/20/23 Amlodipine Besylate (NORVASC TABLET) 5 Mg Tb, 5 MG PO DAILY for 30 Days, #30 TAB 2 Refills Prov:BAILEY PERSAUD MD 11/13/22 Citalopram Hydrobromide (Celexa) 10 Mg Tab, 1 TAB PO DAILY, #30 TAB 2 Refills Prov:BAILEY PERSAUD MD 11/13/22 Fluconazole (Diflucan) 200 Mg Tab, 1 TAB PO DAILY, #7 TAB Prov:BAILEY PERSAUD MD 11/13/22 Sucralfate (CARAFATE SUSP) 1 Gm/10 Ml Ss, 1 GM PO QIDACHS, #240 ML 5 Refills Prov:SAAD LÓPEZ MD 08/03/22 Pantoprazole Sodium Sesquihydr (Protonix) 40 Mg Tab, 40 MG PO DAILY, #30 TAB 5 Refills Prov:SAAD LÓPEZ MD 08/03/22 Isosorbide Mononitrate (Isosorbide Mononitrate ER) 60 Mg Tab, 120 MG PO DAILY, #60 TAB 5 Refills Prov:SAAD LÓPEZ MD 08/03/22 Hydralazine HCl (Hydralazine HCl) 25 Mg Tab, 25 MG PO Q8HR, #90 TAB 5 Refills Prov:SAAD LÓPEZ MD 08/03/22 Hydrocodone-Acetaminophen (Hydrocodone Bitartrate/AC 5-325 mg) 1 Tab Tab, 1 TAB PO Q6HR, #30 TAB Prov:LÓPEZ SMITH MD 07/23/21 Reported Medications Insulin Aspart (Novolog Flexpen Relion) 100 Unit/Ml Inj 07/25/22 Insulin Glargine (Basaglar Kwikpen) 100 Unit/Ml Inj, SC DAILY, INJ 07/15/21 Acetylcysteine (Nac) 600 Mg Cap, 600 MG PO BID, CAP 07/15/21 Information Source: Patient Mode of Arrival: Wheelchair Severity: Moderate Timing: Days Duration: Since onset Prehospital treatment: None Past Medical History PAST MEDICAL HISTORY: DM, Gallstones, HTN, Thyroid Surgical History: Thyroidectomy Surgical History (Other): Craniotomy [employer]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 Family History Family History: Reviewed,noncontributory to illness Social History Smoker: Cigarettes Alcohol: Occasionally Drugs: Marijuana, Methamphetamine Lives In: Home Constitutional: reports: fever; denies: chills, diaphoresis, fatigue, malaise, sweats, weakness, others EENTM: denies: blurred vision, double vision, ear bleeding, ear discharge, ear drainage, ear pain, ear ringing, eye pain, eye redness, hearing loss, mouth pain, mouth swelling, nasal discharge, nose bleeding, nose congestion, nose pain, photophobia, tearing, throat pain, throat swelling, voice changes, others Respiratory: reports: cough; denies: hemoptysis, orthopnea, SOB at rest, shortness of breath, SOB with excertion, stridor, wheezing, others Cardiovascular: denies: chest pain, dizzy spells, diaphoresis, Dyspnea on exertion, edema, irregular heart beat, left arm pain, lightheadedness, palpitations, PND, syncope, others Gastrointestinal: reports: diarrhea, nausea, poor appetite, vomiting; denies: abdomen distended, abdominal pain, blood streaked bowels, constipated, dysphagia, difficulty swallowing, hematemesis, melena, poor fluid intake, rectal bleeding, rectal pain, others Genitourinary: denies: abnormal vagina bleeding, burning, dyspareunia, dysuria, flank pain, frequency, hematuria, incontinence, pain, , vagina discharge, urgency, others Neurological: reports: headache; denies: dizziness, fainting, left sided numbness, left sided weakness, numbness, paresthesia, pre-existing deficit, right sided numbness, right sided weakness, seizure, speech problems, tingling, tremors, weakness, others Musculoskeletal: denies: back pain, gout, joint pain, joint swelling, muscle pain, muscle stiffness, neck pain, others Integumetry: denies: bruises, change in color, change in hair/nails, dryness, laceration, lesions, lumps, rash, wounds, others Allergic/Immunocompromised: denies: Difficulty Healing, Frequent Infections, Hives, Itching, others Hematologic/Lymphatic: denies: anemia, blood clots, easy bleeding, easy bruising, swollen glands, others Endocrine: denies: excessive hunger, excessive sweating, excessive thirst, excessive urination, flushing, intolerance to cold, intolerance to heat, unexplained weight gain, unexplained weight loss, others Psychiatric: denies: anxiety, bipolar disorder, depression, hopeless, panic disorder, schizophrenia, sleepless, suicidal, others All Other Systems: Reviewed and Negative Physical Exam General Appearance: Moderate Distress, Normal HEENT: Normal ENT Inspection, PERRL/EOMI Neck: Full Range of Motion, Non-Tender, Normal, Normal Inspection Respiratory: Chest Non-Tender, No Accessory Muscle Use, No Respiratory Distress, Other (Coarse breath sounds) Cardiovascular: No Edema, No JVD, No Murmur, No Gallop, Normal Peripheral Pulses, Regular Rate/Rhythm Breast Exam: Deferred Gastrointestinal: No Organomegaly, Non Tender, No Pulsatile Mass, Normal Bowel Sounds, Soft Genitalia: Deferred Pelvic: Deferred Rectal: Deferred Extremities: No calf tenderness, Normal capillary refill, Normal inspection, Normal range of motion, Non-tender, No pedal edema Musculoskeletal : Apperance: Normal Neurologic: Alert, chronic disease manager II-XII nml as Tested, No Motor Deficits, Normal Affect, Normal Mood, No Sensory Deficits Cerebellar Function: NOT DONE Reflexes: NOT DONE Skin: Dry, Normal Color, Warm Peripheral Pulses: 3+ Radial (R), 3+ Radial (L) Lymphatic: No Adenopathy Was a procedure done? Was a procedure done?: No Differential Dx Considerations may include: Upper respiratory tract infection Electrolyte imbalance X-Ray, Labs, Meds, VS Vital Signs Date Time Temp Pulse Resp B/P (MAP) Pulse Ox O2 Delivery O2 Flow Rate FiO2 03/04/24 09:59 99.0 84 20 113/58 (76) 99 99.0 03/04/24 08:15 99.8 85 18 106/62 (77) 96 99.8 03/04/24 05:50 98.8 73 18 114/59 (77) 94 Lab Test 03/04/24 12:59 03/04/24 11:00 03/04/24 07:36 03/04/24 07:33 Range/Units White Blood Count 39.2 *H 37.9 *H 4.4-10.8 10^3/uL Red Blood Count 4.41 4.17 4.0-5.20 10^6/uL Hemoglobin 13.0 12.6 12.2-16.2 g/dL Hematocrit 40.2 38.0 36.0-46.0 % Mean Corpuscular Volume 91.2 91.1 80.0-100.0 fL Mean Corpuscular Hemoglobin 29.6 30.2 28.0-32.0 pg Mean Corpuscular Hemoglobin Concent 32.4 33.2 32.0-36.0 g/dL Red Cell Distribution Width 15.9 H 15.3 H 11.8-14.3 % Platelet Count 98 L 92 L 140-450 10^3/uL Mean Platelet Volume 10.7 10.1 6.9-10.8 fL Neutrophils (%) (Auto) 37.0-80.0 % Lymphocytes (%) (Auto) 10.0-50.0 % Monocytes (%) (Auto) 0.0-12.0 % Basophils (%) (Auto) 0.0-2.0 % Neutrophils # (Auto) 1.6-8.6 10 ^3/uL Lymphocytes # (Auto) 0.4-5.4 10 ^3/uL Monocytes # (Auto) 0-1.3 10 ^3/uL Differential Total Cells Counted Pending 100.0 100 Neutrophils % (Manual) Pending 65 37.0-80.0 Band Neutrophils % (Manual) Pending 30 Lymphocytes % (Manual) Pending 4 L 10.0-50.0 Monocytes % (Manual) Pending 1 0-12 Eosinophils % (Manual) Pending 0 0-7 Basophils % (Manual) Pending 0 0.0-2.0 Metamyelocytes % (manual) Pending 0 Myelocytes % (Manual) Pending 0 Promyelocytes % (Manual) Pending 0 Blast Cells % (Manual) Pending 0 Reactive Lymphocytes Pending 0 Platelet Estimate Pending Decreased Sodium Level 132 L 133 L 136-145 mmol/L Potassium Level 5.0 5.0 5.3 H 3.5-5.1 mmol/L Chloride Level 99 102 98-107 mmol/L Carbon Dioxide Level 16 L 14 L 20-31 mmol/L Anion Gap 17 H 17 H 5-15 Blood Urea Nitrogen 41 H 35 H 9-23 mg/dL Creatinine 3.71 H 3.56 H 0.550-1.02 mg/dL Glomerular Filtration Rate Calc 13 14 >90 mL/min BUN/Creatinine Ratio 11.1 9.8 L 10.0-20.0 Serum Glucose 131 H 105 74-106 mg/dL Serum Osmolality 300 H 278-298 mOsm/kg Lactic Acid Level 2.2 *H 2.5 *H 0.4-2.0 mmol/L Calcium Level 9.3 9.1 8.7-10.4 mg/dL Total Bilirubin 0.6 0.2-1.0 mg/dL Aspartate Amino Transferase (AST) 146 H 13-40 U/L Alanine Aminotransferase (ALT) 42 H 7-40 U/L Alkaline Phosphatase 79 46-116 U/L B-Type Natriuretic Peptide Pending Total Protein 7.6 5.7-8.2 g/dL Albumin 4.3 3.2-4.8 g/dL Influenza Type A Antigen Negative Negative Influenza Type B Antigen Negative Negative SARS-CoV-2 Antigen (Rapid) Negative NEGATIVE Anisocytosis (manual) Slight Troponin I High Sensitivity 75 *H </=34 ng/L Current Medications Medications (Trade) Dose Ordered Sig/Ella Route Start Time Stop Time Status Last Admin Ceftriaxone Sodium 50 ml @ 100 mls/hr ONCE ONCE IV 03/04/24 11:00 03/04/24 11:29 DC 03/04/24 12:52 Sodium Chloride 1,000 ml @ 1,000 mls/hr Q1H ONCE IV 03/04/24 11:00 03/04/24 11:59 DC 03/04/24 12:52 Patient alert. Complaining of cough congestion. Vitals stable. Answering all questions. On examination she does have coarse breath sounds. Inflammation. Was given steroid. Reviewed her previous visit. Explained to the patient. Continue cardiac monitoring. WBC elevated. Platelet count is low. Cardiac marker elevated. Demand ischemia. EKG does not show any acute changes. BUN creatinine elevated. ATN. Potassium elevated. Nephrology consultation. Hyperkalemia treatment. Establish intravenous access. Was given fluids. Was given Rocephin. Was given Flagyl. Continue cardiac monitoring. [place] [id number] Ph: [phone] DIAGNOSTIC IMAGING Diagnostic Imaging Report : [id number] Signed PATIENT: SRINIVAS ALVA ACCT: [id number] UNIT: [id number] : 1960 LOC: ER ROOM / BED: / AGE / SEX: 63 / F ADM STATUS: REG ER SERVICE 0 ORDERING PHYSICIAN: ARIELLE DELGADO MD PROCEDURE(s): CXRP - CHEST PORTABLE REASON: sob ORDER NUMBER(s): [id number], ACCESSION NUMBER(s): [id number] CHEST RADIOGRAPH Indication: sob Technique: Single frontal view of the chest was obtained Comparison: XY CHEST XRAY 1 VIEW on DOS: 06/19/23, XY CHEST PORTABLE on DOS: 11/02/22, XY CHEST XRAY 1 VIEW on DOS: 07/24/22 FINDINGS: Lines and Tubes: None Lungs: Bilateral interstitial prominence. Pleura: No effusion. No pneumothorax. Cardiomediastinal contours: Unremarkable Bones: No acute osseous abnormality. IMPRESSION: 1. Bilateral interstitial prominence which may reflect interstitial pulmonary edema. ATED BY: POP CHAKRABORTY MD DICTATED DATE/TIME: 03/04/24809 SIGNED BY: POP CHAKRABORTY MD SIGNED DATE/TIME: 03/04/24809 CC: Time of 1ST Reevaluation: 07:17 Reevaluation 1ST: Unchanged Patient Education/Counseling: Diagnosis, Treatment Family Education/Counseling: No Family Present Additional Information I reviewed the following notes from patient's past medical encounters: 06/19/23 for HTN emergency The following tests were ordered, and results were reviewed by me: CXR, COVID, Influenza A/B, CBC, BMP, UA, Troponin I reviewed and agreed with the following test results read by other providers: CXR I discussed treatment and results with medical personnel. Departure 1 Departure Time of Disposition: 07:33 Impression: Primary Impression: Pneumonitis Additional Impressions: Acute tubular necrosis Hyperkalemia Sepsis, unspecified organism Qualified Codes: A41.9 - Sepsis, unspecified organism Disposition: ADMITTED INPATIENT Admit to: Med Surg Condition: Guarded Critical Care Note Critical Care Time?: Yes (90 min-critical care time only) Stability Stability form required: No Heart Score Heart Score: Heart Score Response (Comments) Value History N/A 0 EKG N/A 0 Age N/A 0 Risk Factors N/A 0 Troponin N/A 0 Total 0 I personally scribed for ARIELLE DELGADO MD ([email or web address]) on 03/04/24 at 06:29. Electronically submitted by Dmitri Olson ([email or web address]). I personally scribed for ARIELLE DELGADO MD ([email or web address]) on 03/04/24 at 06:45. Electronically submitted by Dmitri Olson ([email or web address]). I personally scribed for ARIELLE DELGADO MD ([email or web address]) on 03/04/24 at 13:51. Electronically submitted by Karen Fall ([email or web address]). I personally scribed for ARIELLE DELGADO MD ([email or web address]) on 03/04/24 at 13:54. Electronically submitted by Karen Fall ([email or web address]). ARIELLE DELGADO MD Mar 04, 2024 06:29
[2024-03-04 08:01] LABS: Hemoglobin 12.6 g/dL (12.2-16.2); Mean Corpuscular Hemoglobin 30.2 pg (28.0-32.0); Mean Corpuscular Hgb Conc. 33.2 g/dL (32.0-36.0); Mean Corpuscular Volume 91.1 fL (80.0-100.0); Platelet Count (auto) 92 10^3/uL (140-450); Red Blood Cells 4.17 10^6/uL (4.0-5.20); Red Cell Distribution Width 15.3 % (11.8-14.3)
[2024-03-04 08:04] LABS: White Blood Cell 37.9 10^3/uL (4.4-10.8)
[2024-03-04 08:05] LABS: Basophils % (manual) 0 (0.0-2.0); Blast Cells 0; Eosinophils % (manual) 0 (0-7); Metamyelocytes % 0; Myelocytes % 0; Promyelocytes % 0; Reactive Lymphocytes 0
--- NOTE | 2024-03-04 08:13 | DVH ---
CHEST RADIOGRAPH Indication: sob Technique: Single frontal view of the chest was obtained Comparison: XY CHEST XRAY 1 VIEW on DOS: 06/19/23, XY CHEST PORTABLE on DOS: 11/02/22, XY CHEST XRAY 1 VIEW on DOS: 07/24/22 FINDINGS: Lines and Tubes: None Lungs: Bilateral interstitial prominence. Pleura: No effusion. No pneumothorax. Cardiomediastinal contours: Unremarkable Bones: No acute osseous abnormality. IMPRESSION: 1. Bilateral interstitial prominence which may reflect interstitial pulmonary edema.
[2024-03-04 08:32] LABS: Chloride 102 mmol/L (98-107)
[2024-03-04 08:34] LABS: Anion Gap 17 (5-15); Calcium 9.1 mg/dL (8.7-10.4)
[2024-03-04 08:39] LABS: BUN/Creatinine Ratio 9.8 (10.0-20.0); Glucose 105 mg/dL (74-106)
[2024-03-04 09:16] LABS: Blood Urea Nitrogen 35 mg/dL (9-23); Carbon Dioxide 14 mmol/L (20-31); Potassium 5.3 mmol/L (3.5-5.1); Sodium 133 mmol/L (136-145)
[2024-03-04 09:20] LABS: Rapid Influenza A Negative (Negative); Rapid Influenza B Negative (Negative)
[2024-03-04 09:21] LABS: COVID19 ANTIGEN SOFIA FIA NEGATIVE (NEGATIVE)
[2024-03-04 10:02] LABS: Band Neutrophils % (manual) 30; Lymphocytes % (manual) 4 (10.0-50.0); Monocytes % (manual) 1 (0-12)
[2024-03-04 10:03] LABS: Anisocytosis Slight; Platelet Estimate Decreased
[2024-03-04] MEDS: SODIUM ZIRCONIUM CYCL 10 GM PAK PO ONE (11:00)
[2024-03-04] MEDS: InsuLIN REG 1unit/0.01ml Soln (100units/ml) IV ONE (11:00)
[2024-03-04] MEDS: SODIUM BICARB 8.4% 50Meq/50ml SYR INJ IV ONE (11:00)
[2024-03-04] MEDS: FUROSEMIDE 20 MG/2 ML VIAL IV ONE (11:00)
[2024-03-04] MEDS: DEXTROSE (50%) 50ML SYRG IV ONE (11:00)
[2024-03-04 12:00] VITALS: PULSE 80; RESP 16; O2SAT 94
[2024-03-04 12:21] LABS: Lactic Acid w/Reflex 2.5 mmol/L (0.4-2.0)
[2024-03-04] MEDS: cefTRIAXone 1GM/50ML D5W 50 ML IV ONE (12:52)
[2024-03-04] MEDS: SODIUM CHLORIDE 0.9% 1,000 ML IV ONE ×2 (12:52→16:52)
--- NOTE | 2024-03-04 12:55 | DVH ---
CLINICAL INFORMATION: 63 years old, Female; acute kidney injury. TECHNIQUE: Grayscale sonographic imaging of the kidneys and bladder was performed, assisted by color Doppler technique. COMPARISON: US KIDNEY on DOS: 11/03/22 FINDINGS: Limited examination due to limited mobility of the patient the patient's clinical conditio n. The right kidney measures 11.5 cm in length. No hydronephrosis. Mildly increased cortical echoge nicity of the right kidney with normal cortical thickness. Very limited examination of the left kidney. The left kidney measures 10.2 cm in length. Likely mode rate left hydronephrosis. Increased cortical echogenicity of the left kidney with cortical thickness likely within normal limits. Prevoid bladder volume measured 114 mL. Mild circumferential thickening of the bladder wall noted. Pa tient was unable to void. IMPRESSION: 1. Limited examination. 2. Likely moderate left hydronephrosis. 3. Increased echogenicity of both kidneys, may be seen with medical renal disease. 4. Mild circumferential thickening of the bladder wall is nonspecific. Correlate with clinical findi ngs.
[2024-03-04 13:15] LABS: Red Blood Cells 4.41 10^6/uL (4.0-5.20)
[2024-03-04 13:18] LABS: Hematocrit 40.2 % (36.0-46.0); Mean Corpuscular Hemoglobin 29.6 pg (28.0-32.0); Mean Corpuscular Hgb Conc. 32.4 g/dL (32.0-36.0); Mean Corpuscular Volume 91.2 fL (80.0-100.0); Platelet Count (auto) 98 10^3/uL (140-450); Red Cell Distribution Width 15.9 % (11.8-14.3)
--- NOTE | 2024-03-04 13:20 | DVH ---
EXAM: CT STROKE CTH INDICATION: left sided weakness TECHNIQUE: CT of the head without intravenous contrast. Radiation Dose Information: CT Dose: CTDI volume is 48.44 mGy. Dose-length product is 840.16 mGy*cm The dose indicators for CT are the volume Computed Tomography (CT) Dose Index (CTDIvol) and the Dose Length Product (DLP), and are measured in units of mGy and mGy-cm, respectively. These indicators are not patient dose, but values generated from the CT scanner acquisition factors. The report includes radiation exposure data for exposures received during this examination. COMPARISON: CT HEAD WITHOUT CONTRAST on DOS: 06/19/23 FINDINGS: There is no evidence of acute intracranial hemorrhage, extra-axial collection, mass effect, midline s hift, herniation or hydrocephalus. Encephalomalacia is noted over the left temporal lobe and right frontal lobe. These findings are stab le and unchanged from 06/19/2023 Postop changes are seen with radiopaque material in the suprasellar region may be due to aneurysm cli p or embolic material. The ventricles, sulci and cisterns are age appropriate. The chandra-white differentiation is intact. Patchy periventricular and subcortical white matter hypoattenuation is nonspecific but may be related to small vessel ischemic disease. The visualized paranasal sinuses and mastoid air cells are clear. The surrounding soft tissues and osseous structures are unremarkable. IMPRESSION: 1. No acute intracranial hemorrhage. 2. No significant change from 06/19/2023 3. 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 Unchang ed right frontal lobe and left temporal lobe encephalomalacia from craniotomy defect. HS:Y
[2024-03-04 13:31] LABS: Albumin 4.3 g/dL (3.2-4.8); Alkaline Phosphatase 79 U/L (46-116); Anion Gap 17 (5-15); BUN/Creatinine Ratio 11.1 (10.0-20.0); Bilirubin, Total 0.6 mg/dL (0.2-1.0); Calcium 9.3 mg/dL (8.7-10.4); Chloride 99 mmol/L (98-107); White Blood Cell 39.2 10^3/uL (4.4-10.8)
[2024-03-04 13:32] LABS: Basophils % (manual) 0 (0.0-2.0); Blast Cells 0; Eosinophils % (manual) 0 (0-7); Myelocytes % 0; Promyelocytes % 0; Reactive Lymphocytes 0; Total Protein 7.6 g/dL (5.7-8.2)
[2024-03-04 13:40] LABS: Alanine Aminotransferase 42 U/L (7-40); Aspartate Aminotransferase 146 U/L (13-40); Blood Urea Nitrogen 41 mg/dL (9-23); Carbon Dioxide 16 mmol/L (20-31); Glucose 131 mg/dL (74-106); Sodium 132 mmol/L (136-145)
[2024-03-04] MEDS: metroNIDAZOLE 500MG/100ML 100 ML IV ONE (14:04)
[2024-03-04] MEDS ORDERED: ONDANSETRON HCL 4 MG/2 ML VIAL IV PRN (14:15)
[2024-03-04] MEDS ORDERED: MORPHINE SULFATE INJ 2 MG/ml SYRG IV PRN (14:15)
[2024-03-04] MEDS ORDERED: NITROGLYCERIN 0.4 MG SL TAB SL PRN (14:15)
[2024-03-04] MEDS ORDERED: ACETAMINOPHEN 325 MG TAB PO PRN (14:15)
[2024-03-04] MEDS: SODIUM CHLORIDE 0.9% 1,000 ML IV SCH (14:15)
[2024-03-04] MEDS ORDERED: TEMAZEPAM 15 MG CAP PO PRN (14:15)
[2024-03-04 14:39] LABS: Band Neutrophils % (manual) 39; Lymphocytes % (manual) 2 (10.0-50.0); Metamyelocytes % 2; Monocytes % (manual) 7 (0-12); Platelet Estimate Decreased
--- NOTE | 2024-03-04 15:10 | DVHHP2 ---
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 History was also obtained from the daughter, Michelle patient presented to the ER with kinga. It is reported that the patient has had fevers at home. Vitals notable for temperature of 99.8. No hypotension or hypoxia was noted. CBC was notable for WBC count of 37.9. CMP was notable for BUN/creatinine of 35/3.56. This is elevated from patient's baseline of creatinine of 1.0 8 months prior. Patient underwent [address] brain without contrast which did not reveal any acute intracranial abnormalities. Patient was started on sepsis protocol given 3 L NS bolus. She was given ceftriaxone and metronidazole in the ER. Renal ultrasound was done which showed likely moderate left hydronephrosis. There is also increased echogenicity of both kidneys likely seen with medical renal disease. Flu and COVID were negative. Patient was admitted for further evaluation of her leukocytosis, with underlying diarrhea and CORRIE. Home Meds Active Scripts Nifedipine (Nifedipine Er) 30 Mg Tab, 1 TAB PO DAILY for 30 Days, #30 TAB 5 Refills Prov:GLORIA ISAACS DO 06/20/23 Lisinopril (Lisinopril) 20 Mg Tab, 2 TAB PO DAILY for 30 Days, #60 TAB 5 Refills Prov:GLORAI ISAACS DO 06/20/23 Metoprolol Tartrate (Lopressor) 25 Mg Tb, 25 MG PO BID for 30 Days, #60 TAB 6 Refills Prov:GLORIA ISAACS DO 06/20/23 Amlodipine Besylate (NORVASC TABLET) 5 Mg Tb, 5 MG PO DAILY for 30 Days, #30 TAB 2 Refills Prov:BAILEY PERSAUD MD 11/13/22 Citalopram Hydrobromide (Celexa) 10 Mg Tab, 1 TAB PO DAILY, #30 TAB 2 Refills Prov:BAILEY PERSAUD MD 11/13/22 Fluconazole (Diflucan) 200 Mg Tab, 1 TAB PO DAILY, #7 TAB Prov:BAILEY PERSAUD MD 11/13/22 Sucralfate (CARAFATE SUSP) 1 Gm/10 Ml Ss, 1 GM PO QIDACHS, #240 ML 5 Refills Prov:SAAD LÓPEZ MD 08/03/22 Pantoprazole Sodium Sesquihydr (Protonix) 40 Mg Tab, 40 MG PO DAILY, #30 TAB 5 Refills Prov:SAAD LÓPEZ MD 08/03/22 Isosorbide Mononitrate (Isosorbide Mononitrate ER) 60 Mg Tab, 120 MG PO DAILY, #60 TAB 5 Refills Prov:SAAD LÓPEZ MD 08/03/22 Hydralazine HCl (Hydralazine HCl) 25 Mg Tab, 25 MG PO Q8HR, #90 TAB 5 Refills Prov:SAAD LÓPEZ MD 08/03/22 Hydrocodone-Acetaminophen (Hydrocodone Bitartrate/AC 5-325 mg) 1 Tab Tab, 1 TAB PO Q6HR, #30 TAB Prov:LÓPEZ SMITH MD 07/23/21 Reported Medications Insulin Aspart (Novolog Flexpen Relion) 100 Unit/Ml Inj 07/25/22 Insulin Glargine (Basaglar Kwikpen) 100 Unit/Ml Inj, SC DAILY, INJ 07/15/21 Acetylcysteine (Nac) 600 Mg Cap, 600 MG PO BID, CAP 07/15/21 Past Medical History Cardiac: HTN Endocrine: IDDM Patient Family History: Patient reports no known family medical history. Review of Systems Constitutional: Chills, Fever, Weakness Pulmonary/Respiratory: No symptom reported Cardiovascular: No symptom reported Gastrointestinal: Nausea, Vomiting, Abdominal Pain, Diarrhea H&P Exam Vital Signs Vital Signs Date Time Temp Pulse Resp B/P (MAP) Pulse Ox O2 Delivery O2 Flow Rate FiO2 03/04/24 14:00 97.9 78 20 117/62 (80) 94 97.9 03/04/24 12:00 Room Air* 0 21 General Appeara: Well developed Pulmonary/Respiratory: Normal breath sounds Cardiovascular/Chest: Normal inspection, Regular rate Abdominal Exam: Normal bowel sounds, Soft, No tenderness [employer]ATE Exam: Normal hearing, PERRL Appearance: Appropriate appearance Labs/Xrays Labs Test 03/04/24 12:59 03/04/24 07:36 03/04/24 07:33 Range/Units White Blood Count 39.2 *H 4.4-10.8 10^3/uL Red Blood Count 4.41 4.0-5.20 10^6/uL Hemoglobin 13.0 12.2-16.2 g/dL Hematocrit 40.2 36.0-46.0 % Mean Corpuscular Volume 91.2 80.0-100.0 fL Mean Corpuscular Hemoglobin 29.6 28.0-32.0 pg Mean Corpuscular Hemoglobin Concent 32.4 32.0-36.0 g/dL Red Cell Distribution Width 15.9 H 11.8-14.3 % Platelet Count 98 L 140-450 10^3/uL Mean Platelet Volume 10.7 6.9-10.8 fL Neutrophils (%) (Auto) 37.0-80.0 % Lymphocytes (%) (Auto) 10.0-50.0 % Monocytes (%) (Auto) 0.0-12.0 % Basophils (%) (Auto) 0.0-2.0 % Neutrophils # (Auto) 1.6-8.6 10 ^3/uL Lymphocytes # (Auto) 0.4-5.4 10 ^3/uL Monocytes # (Auto) 0-1.3 10 ^3/uL Differential Total Cells Counted 100.0 100 Neutrophils % (Manual) 50 37.0-80.0 Band Neutrophils % (Manual) 39 Lymphocytes % (Manual) 2 L 10.0-50.0 Monocytes % (Manual) 7 0-12 Eosinophils % (Manual) 0 0-7 Basophils % (Manual) 0 0.0-2.0 Metamyelocytes % (manual) 2 Myelocytes % (Manual) 0 Promyelocytes % (Manual) 0 Blast Cells % (Manual) 0 Reactive Lymphocytes 0 Platelet Estimate Decreased Sodium Level 132 L 136-145 mmol/L Potassium Level 5.0 3.5-5.1 mmol/L Chloride Level 99 98-107 mmol/L Carbon Dioxide Level 16 L 20-31 mmol/L Anion Gap 17 H 5-15 Blood Urea Nitrogen 41 H 9-23 mg/dL Creatinine 3.71 H 0.550-1.02 mg/dL Glomerular Filtration Rate Calc 13 >90 mL/min BUN/Creatinine Ratio 11.1 10.0-20.0 Serum Glucose 131 H 74-106 mg/dL Serum Osmolality 300 H 278-298 mOsm/kg Lactic Acid Level 2.2 *H 0.4-2.0 mmol/L Calcium Level 9.3 8.7-10.4 mg/dL Total Bilirubin 0.6 0.2-1.0 mg/dL Aspartate Amino Transferase (AST) 146 H 13-40 U/L Alanine Aminotransferase (ALT) 42 H 7-40 U/L Alkaline Phosphatase 79 46-116 U/L B-Type Natriuretic Peptide 290.54 0-100 pg/mL Total Protein 7.6 5.7-8.2 g/dL Albumin 4.3 3.2-4.8 g/dL Influenza Type A Antigen Negative Negative Influenza Type B Antigen Negative Negative SARS-CoV-2 Antigen (Rapid) Negative NEGATIVE Anisocytosis (manual) Slight Troponin I High Sensitivity 75 *H </=34 ng/L Assessment/Plan Primary Diagnosis 1. CORRIE 2. Sepsis 3. Type 2 DM 4. History of Aneurysm in Brain 5. Left sided paralysis Plan -Cefepime for sepsis with concern for underlying intra-abdominal pathology -CT abdomen and pelvis without contrast ordered -Nephrology consulted for CORRIE -NS at 60 mL/h -Strict I's and O's -Urine studies pending -Infectious disease consulted -Daily CBC and CMP -Blood cultures pending -Stool studies ordered, C. difficile -Insulin sliding scale -Full code Plan discussed with: Patient, Daughter ROME TAYLOR Mar 04, 2024 15:10
[2024-03-04] MEDS ORDERED: DEXTROSE (50%) 50ML SYRG IV PRN (15:15)
[2024-03-04 16:19] VITALS: PULSE 78; RESP 20; O2SAT 94
--- NOTE | 2024-03-04 16:25 | DVH ---
Exam: CT CT AB PEL WO CON-NO ORAL OR IV History: Sepsis of unknown etiology with history of diarrhea L abd pa Comparison Study: None available at time of dictation. TECHNIQUE: Multidetector CT of the abdomen was performed from lung bases to pubic symphysis. Imaging was performed without IV contrast. Axial, coronal and sagittal multiplanar reformats were obtained fr om the axial data set by the technologist. Radiation Dose Information: CT Dose: CTDI volume is 6.06 mGy. Dose-length product is 306.06 mGy*cm FINDINGS: Evaluation of solid organs is limited due to lack of intravenous contrast use. Findings: Lung Bases: Bibasilar areas of linear atelectasis or scarring. There is also bibasilar areas of airsp festus disease and bronchiectasis. Findings appear more prominent than 2022. Normal heart size. No pleural or pericardial effusion. Liver: The liver is normal in size. No focal lesions. Gallbladder and Biliary Tree: Unremarkable Spleen: Unremarkable Pancreas: The pancreas is grossly normal in appearance. Adrenal Glands: Unremarkable Kidneys: Punctate calculus upper pole left kidney with hydronephrotic left kidney. Left kidney appear s to have been hydronephrotic since previous study of 11/03/2022 Bladder: Grossly unremarkable for degree of distention. Bowel: The stomach is grossly normal in appearance. Small bowel and colon are normal in caliber and d istribution. The appendix is not visualized; however, no secondary findings of acute appendicitis id entified. Ascites: Absent Lymphadenopathy: No mesenteric, retroperitoneal or periportal lymphadenopathy. Abdominal Wall and Mesentery: Unremarkable. Vasculature: The visualized abdominal aorta is normal in size and caliber. Evaluation of abdominal a nd pelvic vessels is limited due to lack of intravenous contrast. Pelvic Organs: Unremarkable Musculoskeletal: No aggressive focal bony lesions, acute fractures or dislocation. Stable grade 1 ant erior spondylolisthesis L5-S1 unchanged from 07/24/2022 Soft tissues: Unremarkable IMPRESSION: 1. Hydronephrotic left kidney no obstructing calculus visualized. Hydronephrosis left kidney was note d in 2022 it May now be currently infected. CT is indeterminate for infection. There is no gas noted in the fluid collection of the left kidney. 2. Stable anterior spondylolisthesis L5-S1 Radiation optimization: All CT scans at this facility use at least one of these dose optimization te chniques: automated exposure control mA and/or kV adjustment per patient size (includes targeted exa ms where dose is matched to clinical indication) or iterative reconstruction.
[2024-03-04] MEDS: InsuLIN REG 1unit/0.01ml Soln (100units/ml) SC SCH (17:00)
[2024-03-04] MEDS: ACCU-CHEK COMFORT CURVE STRIP VI SCH (17:16)
[2024-03-04 20:00] VITALS: PULSE 74; RESP 17; O2SAT 94
[2024-03-04] MEDS: CEFEPIME 1GM/ 50ML 50 ML IV SCH (20:16)
[2024-03-04 21:00] VITALS: BP 115/52; PULSE 78; RESP 17; TEMP 98.1; O2SAT 91
--- NOTE | 2024-03-04 22:35 | DVHINCON2 ---
"Date of service: Mar 04, 2024 Family History: Patient reports no known family medical history. Allergies: Coded Allergies: NO KNOWN ALLERGIES (Unverified , 02/19/21) Home Meds Active Scripts Levofloxacin Hemihydrate (LEVOFLOXACIN) 500 Mg Tab, 1 TAB PO DAILY, #10 TAB Prov:MICHAEL MCFADDEN MD 03/07/24 Citalopram Hydrobromide (Celexa) 10 Mg Tab, 1 TAB PO DAILY, #30 TAB 2 Refills Prov:BAILEY PERSAUD MD 11/13/22 Sucralfate (CARAFATE SUSP) 1 Gm/10 Ml Ss, 1 GM PO QIDACHS, #240 ML 5 Refills Prov:SAAD LÓPEZ MD 08/03/22 Hydralazine HCl (Hydralazine HCl) 25 Mg Tab, 25 MG PO Q8HR, #90 TAB 5 Refills Prov:SAAD LÓPEZ MD 08/03/22 Hydrocodone-Acetaminophen (Hydrocodone Bitartrate/AC 5-325 mg) 1 Tab Tab, 1 TAB PO Q6HR, #30 TAB Prov:LÓPEZ SMITH MD 07/23/21 Reported Medications Clonidine Hydrochloride (Clonidine Hcl) 0.1 Mg Tab, 1 TAB PO DAILY for 30 Days, #30 03/06/24 Pantoprazole Sodium Sesquihydr (Protonix) 40 Mg Tab, 1 TAB PO DAILY for 30 Days, #30 03/06/24 Nifedipine (Nifedipine Er) 30 Mg Tab, 1 TAB PO DAILY for 30 Days, #30 03/06/24 Metoprolol Tartrate (Metoprolol Tartrate) 25 Mg Tab, 1 TAB PO BID for 30 Days, #60 03/06/24 Lisinopril (Lisinopril) 40 Mg Tab, 1 TAB PO DAILY for 30 Days, #30 03/06/24 Isosorbide Mononitrate (Isosorbide Mononitrate Er) 60 Mg Tab, 2 TAB PO DAILY for 30 Days, #60 03/06/24 Insulin Aspart (Novolog Flexpen Relion) 100 Unit/Ml Inj 07/25/22 Insulin Glargine (Basaglar Kwikpen) 100 Unit/Ml Inj, SC DAILY, INJ 07/15/21 Discontinued Reported Medications Acetylcysteine (Nac) 600 Mg Cap, 600 MG PO BID, CAP 07/15/21 Discontinued Scripts Amlodipine Besylate (NORVASC TABLET) 5 Mg Tb, 5 MG PO DAILY for 30 Days, #30 TAB 2 Refills Prov:BAILEY PERSAUD MD 11/13/22 Current Medications Current Medications Medications (Trade) Dose Ordered Sig/Ella Route PRN Reason Start Time Stop Time Status Last Admin Sodium Chloride 1,000 ml @ 60 mls/hr [id number] IV 03/04/24 14:15 Acetaminophen (Tylenol Tablet) 325 mg Q4HP PRN PO MILD PAIN (1-3 PAIN SCALE) 03/04/24 14:15 Acetaminophen/ Hydrocodone Bitart ([place] 5/325MG Tab) 1 tab Q4HP PRN PO MODERATE PAIN (4-6 PAIN SCALE) 03/04/24 14:15 Temazepam (Restoril) 15 mg QHSP PRN PO FOR INSOMNIA 03/04/24 14:15 Ondansetron HCl (Zofran) 4 mg Q4HP PRN IV NAUSEA / VOMITING 03/04/24 14:15 Morphine Sulfate 2 mg Q4HPRN PRN IV SEVERE PAIN (7-10 PAIN SCALE) 03/04/24 14:15 Nitroglycerin (Ntrostat Sublingual) 0.4 mg Q5MINP PRN SL FOR CHEST PAIN 03/04/24 14:15 Morphine Sulfate 2 mg Q30M PRN IV FOR CHEST PAIN 03/04/24 14:15 Diagnostic Test (Pha) (Accu-Chek Comfort Curve T) 1 strip ACHS 03/04/24 17:00 03/04/24 20:42 Insulin Human Regular (InsuLIN R) ACHS SC 03/04/24 17:00 Dextrose 50 ml UD PRN IV Blood Sugar LESS THAN 60 03/04/24 15:15 Cefepime HCl 50 ml @ 12.5 mls/hr DAILY IV 03/04/24 20:00 03/04/24 20:16 Vital Signs Vital Signs Date Time Temp Pulse Resp B/P (MAP) Pulse Ox O2 Delivery O2 Flow Rate FiO2 03/04/24 16:19 78 20 94 Room Air* 0 21 03/04/24 14:00 97.9 117/62 (80) 97.9 Labs/Diagnostic Data Labs Test 03/04/24 20:38 03/04/24 12:59 03/04/24 07:36 03/04/24 07:33 Range/Units POC Glucose 158 H 70-106 mg/dl White Blood Count 39.2 *H 4.4-10.8 10^3/uL Red Blood Count 4.41 4.0-5.20 10^6/uL Hemoglobin 13.0 12.2-16.2 g/dL Hematocrit 40.2 36.0-46.0 % Mean Corpuscular Volume 91.2 80.0-100.0 fL Mean Corpuscular Hemoglobin 29.6 28.0-32.0 pg Mean Corpuscular Hemoglobin Concent 32.4 32.0-36.0 g/dL Red Cell Distribution Width 15.9 H 11.8-14.3 % Platelet Count 98 L 140-450 10^3/uL Mean Platelet Volume 10.7 6.9-10.8 fL Neutrophils (%) (Auto) 37.0-80.0 % Lymphocytes (%) (Auto) 10.0-50.0 % Monocytes (%) (Auto) 0.0-12.0 % Basophils (%) (Auto) 0.0-2.0 % Neutrophils # (Auto) 1.6-8.6 10 ^3/uL Lymphocytes # (Auto) 0.4-5.4 10 ^3/uL Monocytes # (Auto) 0-1.3 10 ^3/uL Differential Total Cells Counted 100.0 100 Neutrophils % (Manual) 50 37.0-80.0 Band Neutrophils % (Manual) 39 Lymphocytes % (Manual) 2 L 10.0-50.0 Monocytes % (Manual) 7 0-12 Eosinophils % (Manual) 0 0-7 Basophils % (Manual) 0 0.0-2.0 Metamyelocytes % (manual) 2 Myelocytes % (Manual) 0 Promyelocytes % (Manual) 0 Blast Cells % (Manual) 0 Reactive Lymphocytes 0 Platelet Estimate Decreased Sodium Level 132 L 136-145 mmol/L Potassium Level 5.0 3.5-5.1 mmol/L Chloride Level 99 98-107 mmol/L Carbon Dioxide Level 16 L 20-31 mmol/L Anion Gap 17 H 5-15 Blood Urea Nitrogen 41 H 9-23 mg/dL Creatinine 3.71 H 0.550-1.02 mg/dL Glomerular Filtration Rate Calc 13 >90 mL/min BUN/Creatinine Ratio 11.1 10.0-20.0 Serum Glucose 131 H 74-106 mg/dL Serum Osmolality 300 H 278-298 mOsm/kg Lactic Acid Level 2.2 *H 0.4-2.0 mmol/L Calcium Level 9.3 8.7-10.4 mg/dL Total Bilirubin 0.6 0.2-1.0 mg/dL Aspartate Amino Transferase (AST) 146 H 13-40 U/L Alanine Aminotransferase (ALT) 42 H 7-40 U/L Alkaline Phosphatase 79 46-116 U/L B-Type Natriuretic Peptide 290.54 0-100 pg/mL Total Protein 7.6 5.7-8.2 g/dL Albumin 4.3 3.2-4.8 g/dL Influenza Type A Antigen Negative Negative Influenza Type B Antigen Negative Negative SARS-CoV-2 Antigen (Rapid) Negative NEGATIVE Anisocytosis (manual) Slight Troponin I High Sensitivity 75 *H </=34 ng/L Problems(with codes): (1) Sepsis, unspecified organism (2) Leukocytosis (3) Unsteady gait (4) GI bleed (5) Sepsis Plan/Recommendation ASSESSMENT AND PLAN: ID Problem List: - Diarrhea - Elevated liver enzymes - Leukocytosis - Acute kidney injury - Urinary tract infection with pyuria - Type 2 diabetes mellitus, insulin-dependent - Hypertension - Asthma - 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 Symptoms have been improving since admission. She reports fevers at home, with an elevated temperature of 99.8?F on admission. She denies eating any unusual foods but notes family members at home with flu-like symptoms, raising concern for exposure. On admission, labs were notable for: - Elevated BUN (35?mg/dL) and creatinine (2.56?mg/dL), up from baseline creatinine of 1?mg/dL, indicating acute kidney injury. - Elevated AST (146?U/L) and ALT (42?U/L). - Leukocytosis with WBC count of 39.2??10/?L, decreasing to 29.2??10/?L. - Platelet count initially 98??10/L, increasing to 109??10/L. - Urinalysis showing 2+ leukocytes, pyuria present, WBCs 199/HPF, suggestive of urinary tract infection. Imaging: - CT shows hydronephrosis of the left kidney with no evidence of obstructive uropathy. Liver is normal. Microbiology: - Influenza A & B negative. - COVID-19 negative. - Hepatitis C antibody positive; Hepatitis B negative. She was given a 3-liter bolus and started on Cefepime and metronidazole (Flagyl). Plan: - Continue Cefepime and metronidazole. - Obtain stool cultures to evaluate diarrhea. - Obtain urine and blood cultures. - Monitor renal function (BUN, creatinine). - Monitor liver function tests. - Trend WBC count. - Symptomatic management of diarrhea. - Evaluate for possible viral infection given exposure history. - can treat hepatitis C infection as outpatient - Standard infectious disease precautions. Isolation Precautions: Standard Assessment and plan were discussed with the patient as written above. Plan is subject to change pending incorporation of new incoming information/diagnostics. Updates may be added as addendum at the bottom (or top) of this note. Thank you for the interesting consult. ID will continue to follow. Please contact Infectious Disease for any questions or concerns. History: The patient's chart and medications were reviewed in detail, and the patient was seen and examined. History obtained from: patient Ms. Cesia Wong is a 61 y.o. 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 Symptoms have been improving since admission. She reports fevers at home, with an elevated temperature of 99.8?F on admission. She denies eating any unusual foods but notes that family members at home have had flu-like symptoms, and she is concerned about exposure. She denies abdominal pain, nausea, or vomiting. She notes no urinary symptoms but reports decreased urine output. Review of Systems: A complete 10-system review of systems was completed and negative except as noted in the HPI or here. ROS: - CONSTITUTIONAL: Reports fever and chills, decreased appetite. Denies weight loss. - HEENT: Denies changes in vision and hearing. - RESPIRATORY: Denies shortness of breath and cough. - CV: Denies palpitations and chest pain. - GI: Reports diarrhea and decreased appetite. Denies abdominal pain, nausea, vomiting. - : Denies dysuria and urinary frequency. - MSK: Denies myalgia and joint pain. - SKIN: Denies rash and pruritus. - NEUROLOGICAL: Reports residual left-sided weakness and left facial droop from prior aneurysm rupture. Denies headache and syncope. - PSYCHIATRIC: Denies recent changes in mood. Denies anxiety and depression. 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 penicillin | Take as prescribed. metoprolol | Take as prescribed. amlodipine | Take as prescribed. citalopram | Take as prescribed. fluconazole | Take as prescribed. sucralfate | Take as prescribed. pantoprazole | Take as prescribed. isosorbide nitrate | Take as prescribed. hydralazine | Take as prescribed. [place] (hydrocodone-acetaminophen) | Take 1 tablet by mouth every 6 hours as needed for pain. insulin glargine 15 units | Inject 15 units subcutaneously daily. Allergies: - No known drug allergies. Family History: - No known family history. Social History: - Smoking status: Not specified. - Alcohol use: Not specified. - Drug use: Not specified. - Marital status: Not specified. Objective: Vital Signs on Arrival: - Temp: 99.8?F - BP: 117/62?mmHg - Pulse: 78?bpm - Resp: 20?breaths/min - SpO?: 94% on room air Most Recent Vital Signs: - Temp: 97.9?F - BP: 117/62?mmHg - Pulse: 78?bpm - Resp: 20?breaths/min - SpO?: 94% on room air Physical Exam: General: NAD Neck: Supple. No masses. HEENT: PERRL. Normal lids and conjunctiva. Moist mucous membranes. Oropharynx without lesions, exudates, or excessive erythema. Normal appearance of the external aspects of the nose and ears. Left-sided facial droop noted. Heart: Regular rhythm, normal rate. No murmur. No lower extremity edema. Lungs: Normal respiratory effort. Clear to auscultation bilaterally. No wheezes. No crackles. Abdomen: Soft. Non-tender. Non-distended. No masses or abdominal hernia. Msk: No digital cyanosis. Normal strength and tone in right upper and lower limbs. Decreased strength in left upper extremity due to residual weakness. Skin: Warm and dry, no rashes. Neuro: Alert. Left-sided facial droop. Extra-ocular movements intact. Sensation intact to soft touch in all four limbs. Residual left-sided upper extremity weakness. Psych: Appropriate mood. Full affect. Oriented to person, place, time, and situation. Diagnostic Studies: Available diagnostic studies were reviewed personally. Significant relevant results and findings are outlined below or addressed in the Assessment and Plan above. Laboratory Data: - WBC: 39.2??10/?L, decreasing to 29.2??10/?L - Hemoglobin: 13?g/dL - Platelets: Initially 98??10/L, increasing to 109??10/L - BUN: 35?mg/dL - Creatinine: 2.56?mg/dL (baseline 1.0?mg/dL) AST: 146?U/L ALT: 42?U/L - Bilirubin: 0.16?mg/dL - Glucose: 73?mg/dL INR: 1.08 Urinalysis: - 2+ leukocytes - Pyuria present - WBCs: 199/hpf Microbiology: - Influenza A & B: Negative - COVID-19: Negative - Hepatitis C antibody: Positive - Hepatitis B: Negative Imaging: - CT Abdomen and Pelvis: - Hydronephrosis of the left kidney with no evidence of obstruction. - Liver normal. Plan discussed with: Patient MICHAEL MCFADDEN MD Mar 04, 2024 22:34"
[2024-03-05] VITALS (8 sets, daily range): BP systolic 116–144; BP diastolic 59–80; PULSE 63–88; RESP 14–19; TEMP 97.4–98.4; O2SAT 91–98
[2024-03-05 08:56] LABS: Basophils # (auto) 0 10 ^3/uL (0-0.2); Basophils % (auto) 0.2 % (0.0-2.0); Eosinophils % (auto) 3.7 % (0.0-7.0); Hematocrit 34.1 % (36.0-46.0); Hemoglobin 11.2 g/dL (12.2-16.2); Lymphocytes # (auto) 1.1 10 ^3/uL (0.4-5.4); Lymphocytes % (auto) 4.1 % (10.0-50.0); Mean Corpuscular Hemoglobin 29.3 pg (28.0-32.0); Mean Corpuscular Volume 88.9 fL (80.0-100.0); Monocytes # (auto) 0.7 10 ^3/uL (0-1.3); Monocytes % (auto) 2.4 % (0.0-12.0); Neutrophils % (auto) 89.6 % (37.0-80.0); Platelet Count (auto) 87 10^3/uL (140-450); Red Blood Cells 3.83 10^6/uL (4.0-5.20); Red Cell Distribution Width 15.7 % (11.8-14.3)
[2024-03-05 09:02] LABS: Albumin 3.4 g/dL (3.2-4.8); Alkaline Phosphatase 86 U/L (46-116); Anion Gap 13 (5-15); BUN/Creatinine Ratio 18.3 (10.0-20.0); Bilirubin, Total 0.4 mg/dL (0.2-1.0); Chloride 107 mmol/L (98-107); Glucose 85 mg/dL (74-106); Potassium 3.9 mmol/L (3.5-5.1); Sodium 137 mmol/L (136-145); Total Protein 6.1 g/dL (5.7-8.2)
[2024-03-05 09:05] LABS: Alanine Aminotransferase 88 U/L (7-40); Aspartate Aminotransferase 268 U/L (13-40); Blood Urea Nitrogen 55 mg/dL (9-23); Calcium 8.3 mg/dL (8.7-10.4); Carbon Dioxide 17 mmol/L (20-31)
[2024-03-05] MEDS: SODIUM CHLORIDE 0.9% 1,000 ML IV ONE (12:10)
--- NOTE | 2024-03-05 13:20 | DVHPN2 ---
Progress Note - Dictate Date Seen: Mar 05, 2024 Medical Necessity Reason Pt with a Central, PICC or Fol: No Subjective Patient feels much stronger today. Notes diarrhea has stopped. vital signs Vital Sign Date Time Temp Pulse Resp B/P (MAP) Pulse Ox O2 Delivery O2 Flow Rate FiO2 03/05/24 12:55 98.2 63 18 132/80 (97) 98 98.2 03/05/24 08:02 Room Air* 0 21 Total Intake and Output 03/04/24 03/04/24 03/05/24 15:00 23:00 07:00 Intake Total 1150 ml 0 ml 450 ml Output Total 0 ml Balance 1150 ml 0 ml 450 ml medications Current Medications Medications Dose Ordered Sig/Ella Route Start Time Stop Time Status Last Admin Dose Admin Sodium Chloride 1,000 ml @ 60 mls/hr [id number] IV 03/04/24 14:15 03/05/24 11:36 60 MLS/HR Acetaminophen 325 mg Q4HP PRN PO 03/04/24 14:15 Acetaminophen/ Hydrocodone Bitart 1 tab Q4HP PRN PO 03/04/24 14:15 Temazepam 15 mg QHSP PRN PO 03/04/24 14:15 Ondansetron HCl 4 mg Q4HP PRN IV 03/04/24 14:15 Morphine Sulfate 2 mg Q4HPRN PRN IV 03/04/24 14:15 Nitroglycerin 0.4 mg Q5MINP PRN SL 03/04/24 14:15 Morphine Sulfate 2 mg Q30M PRN IV 03/04/24 14:15 Diagnostic Test (Pha) 1 strip ACHS 03/04/24 17:00 03/05/24 11:38 1 STRIP Insulin Human Regular ACHS SC 03/04/24 17:00 03/05/24 11:40 2 UNITS Dextrose 50 ml UD PRN IV 03/04/24 15:15 Cefepime HCl 50 ml @ 12.5 mls/hr DAILY IV 03/04/24 20:00 03/05/24 09:09 12.5 MLS/HR objective General appearance: No acute distress Respiratory: Lungs clear to auscultation. No wheezing, crackles Cardiovascular: Regular rate and rhythm, no murmurs. No edema Abdomen: Soft, nondistended, nontender, bowel sounds present MSK: Left UE contracture Neuro: Alert Psych: Appropriate mood and affect. laboratory and microbiology Laboratory Tests 03/05/24 07:07 Test 03/05/24 07:07 Range/Units Serum Glucose 85 74-106 mg/dL Problem List 1. CORRIE 2. Sepsis 3. Type 2 DM 4. History of Aneurysm in Brain 5. 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 Suggests hydronephrosis with underlying infection. -Nephrology consulted for CORRIE, improving. -NS at 60 mL/h. Additional 1L NS bolus today. -Strict I's and O's -Urine studies pending -Infectious disease consulted -Daily CBC and CMP -Blood cultures show NGTD. -Stool studies ordered, C. difficile -Insulin sliding scale -Full code Plan discussed with: Patient ROME TAYLOR Mar 05, 2024 13:20
[2024-03-06] VITALS (8 sets, daily range): BP systolic 82–148; BP diastolic 41–82; PULSE 74–86; RESP 14–20; TEMP 97.5–98.1; O2SAT 90–97
[2024-03-06 10:42] LABS: Mean Corpuscular Hemoglobin 29.8 pg (28.0-32.0); Mean Corpuscular Hgb Conc. 33.4 g/dL (32.0-36.0); Mean Corpuscular Volume 89.3 fL (80.0-100.0); Platelet Count (auto) 54 10^3/uL (140-450); Red Blood Cells 3.69 10^6/uL (4.0-5.20); Red Cell Distribution Width 15.8 % (11.8-14.3)
[2024-03-06 10:59] LABS: Band Neutrophils % (manual) 0; Basophils % (manual) 0 (0.0-2.0); Blast Cells 0; Eosinophils % (manual) 0 (0-7); Metamyelocytes % 0; Myelocytes % 0; Promyelocytes % 0; Reactive Lymphocytes 0; White Blood Cell 33.2 10^3/uL (4.4-10.8)
[2024-03-06 11:04] LABS: Albumin 3.6 g/dL (3.2-4.8); Anion Gap 14 (5-15); BUN/Creatinine Ratio 24.2 (10.0-20.0); Calcium 8.7 mg/dL (8.7-10.4); Chloride 105 mmol/L (98-107); Potassium 4.1 mmol/L (3.5-5.1)
[2024-03-06 11:05] LABS: Bilirubin, Total 0.5 mg/dL (0.2-1.0); Total Protein 6.3 g/dL (5.7-8.2)
[2024-03-06 11:16] LABS: Alanine Aminotransferase 83 U/L (7-40); Alkaline Phosphatase 201 U/L (46-116); Aspartate Aminotransferase 176 U/L (13-40); Blood Urea Nitrogen 57 mg/dL (9-23); Carbon Dioxide 17 mmol/L (20-31); Glucose 126 mg/dL (74-106); Sodium 136 mmol/L (136-145)
[2024-03-06] MEDS: CALCIUM GLUC 1,000mg/50ml-NS 50 ML IV ONE (12:20)
--- NOTE | 2024-03-06 12:37 | DVHPN2 ---
Progress Note - Dictate Date Seen: Mar 06, 2024 Medical Necessity Reason Pt with a Central, PICC or Fol: No Subjective Patient feels well today. Continues to note diarrhea. vital signs Vital Sign Date Time Temp Pulse Resp B/P (MAP) Pulse Ox O2 Delivery O2 Flow Rate FiO2 03/06/24 08:58 98.0 77 20 148/58 (88) 96 98.0 03/05/24 19:30 Room Air* 0 21 Total Intake and Output 03/05/24 03/05/24 03/06/24 15:00 23:00 07:00 Intake Total 1850 ml 350 ml Balance 1850 ml 350 ml medications Current Medications Medications Dose Ordered Sig/Ella Route Start Time Stop Time Status Last Admin Dose Admin Sodium Chloride 1,000 ml @ 60 mls/hr [id number] IV 03/04/24 14:15 03/05/24 11:36 60 MLS/HR Acetaminophen 325 mg Q4HP PRN PO 03/04/24 14:15 Acetaminophen/ Hydrocodone Bitart 1 tab Q4HP PRN PO 03/04/24 14:15 Temazepam 15 mg QHSP PRN PO 03/04/24 14:15 Ondansetron HCl 4 mg Q4HP PRN IV 03/04/24 14:15 Morphine Sulfate 2 mg Q4HPRN PRN IV 03/04/24 14:15 Nitroglycerin 0.4 mg Q5MINP PRN SL 03/04/24 14:15 Morphine Sulfate 2 mg Q30M PRN IV 03/04/24 14:15 Diagnostic Test (Pha) 1 strip ACHS 03/04/24 17:00 03/06/24 12:16 1 STRIP Insulin Human Regular ACHS SC 03/04/24 17:00 03/06/24 12:19 2 UNITS Dextrose 50 ml UD PRN IV 03/04/24 15:15 Cefepime HCl 50 ml @ 12.5 mls/hr DAILY IV 03/04/24 20:00 03/06/24 10:29 12.5 MLS/HR objective General appearance: No acute distress Respiratory: Lungs clear to auscultation. No wheezing, crackles Cardiovascular: Regular rate and rhythm, no murmurs. No edema Abdomen: Soft, nondistended, nontender, bowel sounds present MSK: Left UE contracture Neuro: Alert Psych: Appropriate mood and affect. laboratory and microbiology Laboratory Tests 03/06/24 09:55 Test 03/06/24 09:55 Range/Units Serum Glucose 126 H 74-106 mg/dL Problem List 1. CORRIE 2. Sepsis 3. Type 2 DM 4. History of Aneurysm in Brain 5. 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 -CT abdomen and pelvis without contrast ordered. Suggests hydronephrosis with underlying infection. -Nephrology consulted for CORRIE, improving. -NS at 60 mL/h. -Strict I's and O's -Urine studies pending -Infectious disease consulted. WBC remains elevated. -Daily CBC and CMP -Blood cultures show NGTD. -Stool studies ordered, C. difficile, negative. -Insulin sliding scale -Full code Plan discussed with: Patient ROME TAYLOR DO Mar 06, 2024 12:37
[2024-03-06 14:21] LABS: Lymphocytes % (manual) 4 (10.0-50.0); Monocytes % (manual) 5 (0-12)
[2024-03-06 14:22] LABS: Large Platelets FEW; Platelet Estimate Decreased
[2024-03-06 19:21] LABS: Sodium Urine 53 mmol/L (40-220)
[2024-03-06 19:28] LABS: Cannabinoid Screen, Urine Neg (NEGATIVE); Creatinine, Urine 41.49 mg/dL (30.0-125.0)
[2024-03-06 19:30] LABS: Amphetamine Screen, Urine Neg (NEGATIVE); Barbiturate Scree,Urine Neg (NEGATIVE); Benzodiazephine Screen, Urine Neg (NEGATIVE); Cocaine Screen, Urine Neg (NEGATIVE); Opiate Scree,Urine Neg (NEGATIVE); Phencyclidine Screen, Urine Neg (NEGATIVE)
[2024-03-06 19:38] LABS: Urine Bacteria FEW /hpf (None Seen); Urine Blood 3+ /uL (Negative); Urine Clarity Ex.Turbid (Clear); Urine Color Colorless (Yellow); Urine Mucus FEW (None Seen); Urine Protein, UAD 2+ (Negative); Urine Squamous Epithelial Cell FEW /hpf (<5); Urine Urobilinogen Normal (Negative); Urine WBC 199 /hpf (0 - 5)
[2024-03-06] MEDS: HYDROcodone-ACET 5/325MG TAB PO PRN (21:02)
--- NOTE | 2024-03-06 22:21 | DVHPN2 ---
Consult Progress Note Date Seen: Mar 06, 2024 Subjective Patient reports: Feels better (diarrhea resolving) Objective vital signs Vital Sign Date Time Temp Pulse Resp B/P (MAP) Pulse Ox O2 Delivery O2 Flow Rate FiO2 03/06/24 21:00 97.5 74 18 82/41 (55) 95 97.5 03/06/24 08:00 Room Air* 0 21 Total Intake and Output 03/05/24 03/05/24 03/06/24 15:00 23:00 07:00 Intake Total 1850 ml 350 ml Balance 1850 ml 350 ml medications Current Medications Medications Dose Ordered Sig/Ella Route Start Time Stop Time Status Last Admin Dose Admin Sodium Chloride 1,000 ml @ 60 mls/hr [id number] IV 03/04/24 14:15 03/05/24 11:36 60 MLS/HR Acetaminophen 325 mg Q4HP PRN PO 03/04/24 14:15 Acetaminophen/ Hydrocodone Bitart 1 tab Q4HP PRN PO 03/04/24 14:15 03/06/24 21:02 1 TAB Temazepam 15 mg QHSP PRN PO 03/04/24 14:15 Ondansetron HCl 4 mg Q4HP PRN IV 03/04/24 14:15 Morphine Sulfate 2 mg Q4HPRN PRN IV 03/04/24 14:15 Nitroglycerin 0.4 mg Q5MINP PRN SL 03/04/24 14:15 Morphine Sulfate 2 mg Q30M PRN IV 03/04/24 14:15 Diagnostic Test (Pha) 1 strip ACHS 03/04/24 17:00 03/06/24 21:06 1 STRIP Insulin Human Regular ACHS SC 03/04/24 17:00 03/06/24 12:19 2 UNITS Dextrose 50 ml UD PRN IV 03/04/24 15:15 Cefepime HCl 50 ml @ 12.5 mls/hr DAILY IV 03/04/24 20:00 03/06/24 10:29 12.5 MLS/HR Physical Exam: General: NAD Neck: Supple. No masses. HEENT: PERRL. Normal lids and conjunctiva. Moist mucous membranes. Oropharynx without lesions, exudates, or excessive erythema. Normal appearance of the external aspects of the nose and ears. Left-sided facial droop noted. Heart: Regular rhythm, normal rate. No murmur. No lower extremity edema. Lungs: Normal respiratory effort. Clear to auscultation bilaterally. No wheezes. No crackles. Abdomen: Soft. Non-tender. Non-distended. No masses or abdominal hernia. Msk: No digital cyanosis. Normal strength and tone in right upper and lower limbs. Decreased strength in left upper extremity due to residual weakness. Skin: Warm and dry, no rashes. Neuro: Alert. Left-sided facial droop. Extra-ocular movements intact. Sensation intact to soft touch in all four limbs. Residual left-sided upper extremity weakness. Psych: Appropriate mood. Full affect. Oriented to person, place, time, and situation. 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 Symptoms have been improving since admission. She reports fevers at home, with an elevated temperature of 99.8?F on admission. She denies eating any unusual foods but notes family members at home with flu-like symptoms, raising concern for exposure. On admission, labs were notable for: - Elevated BUN (35?mg/dL) and creatinine (2.56?mg/dL), up from baseline creatinine of 1?mg/dL, indicating acute kidney injury. - Elevated AST (146?U/L) and ALT (42?U/L). - Leukocytosis with WBC count of 39.2??10/?L, decreasing to 29.2??10/?L. - Platelet count initially 98??10/L, increasing to 109??10/L. - Urinalysis showing 2+ leukocytes, pyuria present, WBCs 199/HPF, suggestive of urinary tract infection. Imaging: - CT shows hydronephrosis of the left kidney with no evidence of obstructive uropathy. Liver is normal. Microbiology: - Influenza A & B negative. - COVID-19 negative. - Hepatitis C antibody positive; Hepatitis B negative. She was given a 3-liter bolus and started on Cefepime and metronidazole (Flagyl). Plan: - Continue Cefepime and metronidazole. - Obtain stool cultures to evaluate diarrhea. - Obtain urine and blood cultures. - Monitor renal function (BUN, creatinine). - Monitor liver function tests. - Trend WBC count. - Symptomatic management of diarrhea. - Evaluate for possible viral infection given exposure history. - Standard infectious disease precautions. Plan discussed with: Patient MICHAEL MCFADDEN MD Mar 06, 2024 22:21
[2024-03-07] VITALS (7 sets, daily range): BP systolic 142–181; BP diastolic 77–94; PULSE 71–75; RESP 14–17; TEMP 97.4–98.5; O2SAT 95–98
[2024-03-07] MEDS: MORPHINE SULFATE INJ 2 MG/ml SYRG IV PRN (09:15)
[2024-03-07 11:12] LABS: Basophils # (auto) 0 10 ^3/uL (0-0.2); Basophils % (auto) 0.1 % (0.0-2.0); Eosinophils # (auto) 0 10 ^3/uL (0-0.8); Eosinophils % (auto) 0.1 % (0.0-7.0); Platelet Count (auto) 44 10^3/uL (140-450)
[2024-03-07 11:16] LABS: Hematocrit 36.2 % (36.0-46.0); Lymphocytes # (auto) 1.1 10 ^3/uL (0.4-5.4); Mean Corpuscular Hemoglobin 30.2 pg (28.0-32.0); Mean Corpuscular Hgb Conc. 33.2 g/dL (32.0-36.0); Mean Corpuscular Volume 91.1 fL (80.0-100.0); Monocytes # (auto) 1.1 10 ^3/uL (0-1.3); Neutrophils # (auto) 15.5 10 ^3/uL (1.6-8.6); Neutrophils % (auto) 87.8 % (37.0-80.0); Nucleated Red Blood Cells % 0.1 %; Red Blood Cells 3.98 10^6/uL (4.0-5.20); Red Cell Distribution Width 16.3 % (11.8-14.3); White Blood Cell 17.7 10^3/uL (4.4-10.8)
[2024-03-07 11:41] LABS: Albumin 3.3 g/dL (3.2-4.8); Anion Gap 12 (5-15); BUN/Creatinine Ratio 26.6 (10.0-20.0); Bilirubin, Total 0.4 mg/dL (0.2-1.0); Calcium 8.9 mg/dL (8.7-10.4); Potassium 4.1 mmol/L (3.5-5.1); Total Protein 5.9 g/dL (5.7-8.2)
[2024-03-07 11:44] LABS: Alanine Aminotransferase 55 U/L (7-40); Alkaline Phosphatase 150 U/L (46-116); Aspartate Aminotransferase 77 U/L (13-40); Blood Urea Nitrogen 41 mg/dL (9-23); Carbon Dioxide 16 mmol/L (20-31); Chloride 108 mmol/L (98-107); Glucose 142 mg/dL (74-106); Sodium 136 mmol/L (136-145)
--- NOTE | 2024-03-07 13:43 | DVHDS2 ---
Discharge Summary Date of Admission Mar 05, 2024 at 10:38 Date of Discharge: Mar 07, 2024 Labs/Diagnostic Data: Laboratory Results Test 03/07/24 10:34 03/07/24 06:35 03/06/24 17:25 03/06/24 09:55 White Blood Count 17.7 10^3/uL (4.4-10.8) Red Blood Count 3.98 10^6/uL (4.0-5.20) Hemoglobin 12.0 g/dL (12.2-16.2) Hematocrit 36.2 % (36.0-46.0) Mean Corpuscular Volume 91.1 fL (80.0-100.0) Mean Corpuscular Hemoglobin 30.2 pg (28.0-32.0) Mean Corpuscular Hemoglobin Concent 33.2 g/dL (32.0-36.0) Red Cell Distribution Width 16.3 % (11.8-14.3) Platelet Count 44 10^3/uL (140-450) Mean Platelet Volume 10.0 fL (6.9-10.8) Neutrophils (%) (Auto) 87.8 % (37.0-80.0) Lymphocytes (%) (Auto) 6.0 % (10.0-50.0) Monocytes (%) (Auto) 6.0 % (0.0-12.0) Eosinophils (%) (Auto) 0.1 % (0.0-7.0) Basophils (%) (Auto) 0.1 % (0.0-2.0) Neutrophils # (Auto) 15.5 10 ^3/uL (1.6-8.6) Lymphocytes # (Auto) 1.1 10 ^3/uL (0.4-5.4) Monocytes # (Auto) 1.1 10 ^3/uL (0-1.3) Eosinophils # (Auto) 0 10 ^3/uL (0-0.8) Basophils # (Auto) 0 10 ^3/uL (0-0.2) Nucleated Red Blood Cells 0.1 % Sodium Level 136 mmol/L (136-145) Potassium Level 4.1 mmol/L (3.5-5.1) Chloride Level 108 mmol/L (98-107) Carbon Dioxide Level 16 mmol/L (20-31) Anion Gap 12 (5-15) Blood Urea Nitrogen 41 mg/dL (9-23) Creatinine 1.54 mg/dL (0.550-1.02) Glomerular Filtration Rate Calc 38 mL/min (>90) BUN/Creatinine Ratio 26.6 (10.0-20.0) Serum Glucose 142 mg/dL (74-106) Calcium Level 8.9 mg/dL (8.7-10.4) Total Bilirubin 0.4 mg/dL (0.2-1.0) Aspartate Amino Transferase (AST) 77 U/L (13-40) Alanine Aminotransferase (ALT) 55 U/L (7-40) Alkaline Phosphatase 150 U/L (46-116) Total Protein 5.9 g/dL (5.7-8.2) Albumin 3.3 g/dL (3.2-4.8) POC Glucose 137 mg/dl (70-106) Urine Color Colorless (Yellow) Urine Clarity Ex.turbid (Clear) Urine pH 6.0 (5.0-9.0) Urine Specific [place] 1.010 (1.001-1.035) Urine Protein 2+ (Negative) Urine Ketones Negative (Negative) Urine Blood 3+ /uL (Negative) Urine Nitrite Negative (Negative) Urine Bilirubin Negative (Negative) Urine Urobilinogen Normal mg/dL (Negative) Urine Leukocyte Esterase 3+ /uL (Negative) Urine RBC 8 /hpf (0 - 4) Urine WBC 199 /hpf (0 - 5) Urine Squamous Epithelial Cells Few /hpf (<5) Urine Bacteria Few /hpf (None Seen) Urine Mucus Few (None Seen) Urine Creatinine 41.49 mg/dL (30.0-125.0) Urine Sodium 53 mmol/L (40-220) Urine Glucose Normal mg/dL (Normal) Urine Opiates Screen Neg (NEGATIVE) Urine Fentanyl Screen Neg (NEGATIVE) Urine Barbiturates Screen Neg (NEGATIVE) Urine Phencyclidine Screen Neg (NEGATIVE) Urine Amphetamines Screen Neg (NEGATIVE) Urine Benzodiazepines Screen Neg (NEGATIVE) Urine Cocaine Screen Neg (NEGATIVE) Urine Cannabinoids Screen Neg (NEGATIVE) Differential Total Cells Counted 100.0 (100) Neutrophils % (Manual) 91 (37.0-80.0) Band Neutrophils % (Manual) 0 Lymphocytes % (Manual) 4 (10.0-50.0) Monocytes % (Manual) 5 (0-12) Eosinophils % (Manual) 0 (0-7) Basophils % (Manual) 0 (0.0-2.0) Metamyelocytes % (manual) 0 Myelocytes % (Manual) 0 Promyelocytes % (Manual) 0 Blast Cells % (Manual) 0 Reactive Lymphocytes 0 Large Platelets Few Test 03/04/24 12:59 03/04/24 07:36 03/04/24 07:33 Serum Osmolality 300 mOsm/kg (278-298) Lactic Acid Level 2.2 mmol/L (0.4-2.0) B-Type Natriuretic Peptide 290.54 pg/mL (0-100) Influenza Type A Antigen Negative (Negative) Influenza Type B Antigen Negative (Negative) SARS-CoV-2 Antigen (Rapid) Negative (NEGATIVE) Anisocytosis (manual) Slight Troponin I High Sensitivity 75 ng/L (</=34) Other Laboratory Tests 03/07/24 10:34 Brief Hx & Hospital Course: Patient is a 63-year-old female with past medical history of aneurysm with rupture noted more than 30 years ago with residual left-sided weakness, history of type 2 diabetes insulin-dependent who presented with complaints of decreased appetite and profound diarrhea for the past several days. History was also obtained from the daughter, Michelle patient presented to the ER with kinga. It is reported that the patient has had fevers at home. Vitals notable for temperature of 99.8. No hypotension or hypoxia was noted. CBC was notable for WBC count of 37.9. CMP was notable for BUN/creatinine of 35/3.56. This is elevated from patient's baseline of creatinine of 1.0 8 months prior. Patient underwent [address] brain without contrast which did not reveal any acute intracranial abnormalities. Patient was started on sepsis protocol given 3 L NS bolus. She was given ceftriaxone and metronidazole in the ER. Renal ultrasound was done which showed likely moderate left hydronephrosis. There is also increased echogenicity of both kidneys likely seen with medical renal disease. Flu and COVID were negative. Patient was admitted for further evaluation of her leukocytosis, with underlying diarrhea and CORRIE. Flu and covid negative. Patient was treated with cefepime. Blood cultures showed no growth. Stool studies were done which were negative and negative for C. difficile. Infectious disease was consulted. Patient's WBC count improved from 37.9-17.7 on discharge. Renal function also improved from BUN/creatinine of 35/3.56-41/1.54. It was concluded that patient's illness was due to an acute viral etiology. No further antibiotics were recommended on discharge by infectious disease. Patient was noted to be at baseline with resolution of diarrhea. Patient to follow-up with nephrology outpatient. Patient was discharged in stable condition. [facility] case management arrange follow-up appointments. 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 Medications: No new medications. Stay well hydrated. Discharge Statement: "Patient was advised to return to the ER or call 911 if any headaches, dizziness, shortness of breath, chest pain, abdominal pain, bleeding, fevers, or worsening of medical condition. Patient was counseled about treatment plan, medications, possible side effects, patientverbalized understanding. All questions were answered to the best of my ability. This discharge took greater then 30 minutes in planning, reviewing documentation, counseling the patient, and discussing with other team members." ASSESSMENT ASSESSMENT Assessment Dehydration 2/2 Viral Gastritis ROME TAYLOR DO Mar 07, 2024 13:43
[2024-03-07 14:26] LABS: Large Platelets FEW; Platelet Estimate Decrea
[2024-03-07] MEDS ORDERED: LEVO500T91 PO (14:42)
[2024-03-07] MEDS ORDERED: levoFLOXacin 500MG 100 ML IV SCH (14:45)
--- NOTE | 2024-03-07 14:52 | DVHPN2 ---
Consult Progress Note Date Seen: Mar 07, 2024 Subjective Patient reports: Feels better (diarrhea resolved, weakness resolved) Objective vital signs Vital Sign Date Time Temp Pulse Resp B/P (MAP) Pulse Ox O2 Delivery O2 Flow Rate FiO2 03/07/24 14:16 97.8 72 14 95 03/07/24 13:00 181/94 (123) 03/06/24 20:00 Room Air* 0 21 Total Intake and Output 03/06/24 03/06/24 03/07/24 15:00 23:00 07:00 Intake Total 50 ml 1000 ml 300 ml Output Total 400 ml Balance 50 ml 1000 ml -100 ml medications Current Medications Medications Dose Ordered Sig/Ella Route Start Time Stop Time Status Last Admin Dose Admin Sodium Chloride 1,000 ml @ 60 mls/hr [id number] IV 03/04/24 14:15 03/05/24 11:36 60 MLS/HR Acetaminophen 325 mg Q4HP PRN PO 03/04/24 14:15 Acetaminophen/ Hydrocodone Bitart 1 tab Q4HP PRN PO 03/04/24 14:15 03/06/24 21:02 1 TAB Temazepam 15 mg QHSP PRN PO 03/04/24 14:15 Ondansetron HCl 4 mg Q4HP PRN IV 03/04/24 14:15 Morphine Sulfate 2 mg Q4HPRN PRN IV 03/04/24 14:15 03/07/24 09:15 2 MG Nitroglycerin 0.4 mg Q5MINP PRN SL 03/04/24 14:15 Morphine Sulfate 2 mg Q30M PRN IV 03/04/24 14:15 Diagnostic Test (Pha) 1 strip ACHS 03/04/24 17:00 03/07/24 06:40 1 STRIP Insulin Human Regular ACHS SC 03/04/24 17:00 03/06/24 12:19 2 UNITS Dextrose 50 ml UD PRN IV 03/04/24 15:15 Cefepime HCl 50 ml @ 12.5 mls/hr DAILY IV 03/04/24 20:00 03/07/24 09:14 12.5 MLS/HR Physical Exam: General: NAD Neck: Supple. No masses. HEENT: PERRL. Normal lids and conjunctiva. Moist mucous membranes. Oropharynx without lesions, exudates, or excessive erythema. Normal appearance of the external aspects of the nose and ears. Left-sided facial droop noted. Heart: Regular rhythm, normal rate. No murmur. No lower extremity edema. Lungs: Normal respiratory effort. Clear to auscultation bilaterally. No wheezes. No crackles. Abdomen: Soft. Non-tender. Non-distended. No masses or abdominal hernia. Msk: No digital cyanosis. Normal strength and tone in right upper and lower limbs. Decreased strength in left upper extremity due to residual weakness. Skin: Warm and dry, no rashes. Neuro: Alert. Left-sided facial droop. Extra-ocular movements intact. Sensation intact to soft touch in all four limbs. Residual left-sided upper extremity weakness. Psych: Appropriate mood. Full affect. Oriented to person, place, time, and situation. 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 Symptoms have been improving since admission. She reports fevers at home, with an elevated temperature of 99.8?F on admission. She denies eating any unusual foods but notes family members at home with flu-like symptoms, raising concern for exposure. On admission, labs were notable for: - Elevated BUN (35?mg/dL) and creatinine (2.56?mg/dL), up from baseline creatinine of 1?mg/dL, indicating acute kidney injury. - Elevated AST (146?U/L) and ALT (42?U/L). - Leukocytosis with WBC count of 39.2??10/?L, decreasing to 29.2??10/?L. - Platelet count initially 98??10/L, increasing to 109??10/L. - Urinalysis showing 2+ leukocytes, pyuria present, WBCs 199/HPF, suggestive of urinary tract infection. Imaging: - CT shows hydronephrosis of the left kidney with no evidence of obstructive uropathy. Liver is normal. Microbiology: - Influenza A & B negative. - COVID-19 negative. - Hepatitis C antibody positive; Hepatitis B negative. She was given a 3-liter bolus and started on Cefepime and metronidazole (Flagyl). Plan: - Continue Cefepime and metronidazole. can discharge on oral levofloxacin 500mg qd x 10 days when patient is ready for discharge - fu in ID clinic in 2 weeks for hepatitis C management and treatment - Obtain stool cultures to evaluate diarrhea. - Obtain urine and blood cultures. - Monitor renal function (BUN, creatinine). - Monitor liver function tests. - Trend WBC count. - Symptomatic management of diarrhea. - Evaluate for possible viral infection given exposure history. - Standard infectious disease precautions. Plan discussed with: Patient MICHAEL MCFADDEN MD Mar 07, 2024 14:52
[2024-03-07] MEDS: levoFLOXacin 500 MG TAB PO ONE (15:37)
== END 2024-03-07 16:50 | disposition home or self-care (01) | DRG 391 ==
LOC: ER 05:34 → OVERFLOW 14:04 → WEST WING 16:00 → OBSVTOIN 03-05 10:38
PROVIDERS: ADMIT Student in an Organized Health Care Education/Training Program; ATTEND Student in an Organized Health Care Education/Training Program
DX: A08.4 Viral intestinal infection, unspecified (principal); I50.33 Acute on chronic diastolic (congestive) heart failure; N13.6 Pyonephrosis; I69.354 Hemiplegia and hemiparesis following cerebral infarction affecting left non-dominant side; E11.9 Type 2 diabetes mellitus without complications; F17.210 Nicotine dependence, cigarettes, uncomplicated; E87.5 Hyperkalemia; F12.10 Cannabis abuse, uncomplicated; F15.10 Other stimulant abuse, uncomplicated; R74.01 Elevation of levels of liver transaminase levels; E86.0 Dehydration; J45.909 Unspecified asthma, uncomplicated; J98.4 Other disorders of lung; Z79.891 Long term (current) use of opiate analgesic; Z79.899 Other long term (current) drug therapy; Z79.4 Long term (current) use of insulin; Z86.79 Personal history of other diseases of the circulatory system; I69.320 Aphasia following cerebral infarction; I11.0 Hypertensive heart disease with heart failure
CPT/HCPCS: 36415; 70450; 71045; 74176; 76775; 80048; 80053; 80307; 81001; 82570; 82962; 83605; 83880; 83930; 84132; 84300; 84484; 85007; 85025; 85027; 87040; 87086; 87426; 87493; 87804; 96365; 97110; 97116; 97163; 97530; 99291; 99292; G0378; J1815; J3490